=== PATIENT | female | born 1960 | race Caucasian/White ===

== ENCOUNTER 2016-08-16 10:23 | Day surgery (SDC) | payer OTHER ==
[2016-08-15 09:28] VITALS: BMI 32.3
[~2016-08-16 10:23] MED LIST: LACTATED RINGERS 1,000 ML IV SCH
[2016-08-16 12:38] VITALS: RESP 16; TEMP 97.7
[2016-08-16] MEDS ORDERED: IOHEXOL 180 MG/ML 1 ML ML ONE (13:19)
[2016-08-16] MEDS ORDERED: TRIAMCINOLONE ACETONIDE 40 MG/ML 1 ML VIAL ONE (13:19)
--- NOTE | 2016-08-16 13:31 | P.PCN ---
Date of Procedure: 08/16/16 Procedure(s) Performed: PREOPERATIVE DIAGNOSIS: 1- Lumbar Degenerative Disc Diseases 2-Lumbar spondylosis with Facet arthropathy without myelopathy POSTOPERATIVE DIAGNOSIS: 1-Lumber Degenerative Disc Diseases 2-Lumbar spondylosis with Facet arthropathy without myelopathy PROCEDURE 1. Lumbar epidural steroid injection under fluoroscopic guidance at the L5-S1 level. 2. Lumbar epidurogram. ANESTHESIA: Local with 1% lidocaine 3 ml .( NO IV sedations was given ) EBL: Minimal PROCEDURE INDICATION: The patient with low back pain and radiculitis symptoms unresponsive to conservative treatment. Fluoroscopy was used to optimize visualization of the needle placement and to maximize safety. PROCEDURE DESCRIPTION / TECHNIQUE: The patient was seen and identified in the preoperative area. Risks, benefits , complications including but not limited to infections ,bleeding ,allergic reaction to the medications ,nerve damage and not complete pain releife , and alternatives were discussed with the patient. The patient agreed to proceed with the procedure and signed the consent, and vital signs were stable. Patient was taken to the OR and time out was completed. The patient was placed in the prone position on procedure table and a pillow was placed under the abdomen to reduce lumbar lordosis. The lumbosacral area was prepped and draped in the usual sterile fashion.ere closely monitored during the procedure. Vital signs was monitered during the entire procedure. Using anterior-posterior fluoroscopy, the L5-S1 interlaminar space was identified and the skin over this site was marked and then infiltrated with 1% lidocaine subcutaneously. Subsequently, a 20-gauge Tuohy epidural needle was inserted and advanced toward the epidural space using the ``Loss of resistance technique and guided by AP and lateral fluoroscopy. The correct needle position in the epidural space was verified with the injection of 2 mL of the water soluble contrast dye Omnipaque 180 contrast and observing an excellent epidurogram with the epidural spread of the dye, after negative aspiration for blood and CSF and in the absence of paresthesias. Again after negative aspiration, a 6 ml mixture containing 80 mg of Kenalog and 2 ml of preservative free Normal Saline, and 2 ml of preservative free lidocaine 1% solution was injected and a washout of epidurogram was seen. Needle was withdrawn intact, skin was cleansed, and bandages were applied. COMPLICATIONS: None DISPOSITION / PLANS: The patient was placed in a supine position and transferred to the recovery area in a stable condition for observation. There was no evidence of lower extremity motor or sensory deficit after the procedure. Patient was discharged from the recovery room after meeting discharge criteria. Home discharge instructions were given to the patient by the staff. The patient was reexamined prior to discharge. The patient will schedule a follow up in the clinic in 2-4 weeks.
--- NOTE | 2016-08-16 13:39 | FL ---
Fluoroscopy HISTORY: Pain 2 seconds fluoroscopy time supplied to the referring clinician. 1 intraoperative C-arm images docume nt the procedure. See dictated report from anesthesia.
[2016-08-16 13:41] VITALS: BP 124/79; PULSE 57
== END 2016-08-16 13:55 | disposition home or self-care (01) ==
LOC: ORPAIN 10:23
PROVIDERS: ATTEND Specialist
DX: M51.16 Intervertebral disc disorders with radiculopathy, lumbar region (principal); M47.26 Other spondylosis with radiculopathy, lumbar region; M46.96 Unspecified inflammatory spondylopathy, lumbar region; Z88.5 Allergy status to narcotic agent
CPT/HCPCS: 62323; J3301; Q9965

== ENCOUNTER 2016-09-28 17:39 | Emergency (ER) | payer OTHER ==
[2016-09-28 17:52] VITALS: RESP 18
[2016-09-28] MEDS ORDERED: RX INFO: IV CONTRAST WAS GIVEN 1 EACH MISC MISCELLANE PRN (18:07)
[2016-09-28] MEDS ORDERED: SODIUM CHLORIDE 0.9% 1,000 ML IV STA ×2 (18:07)
--- NOTE | 2016-09-28 18:10 | ED ---
General Adult HPI - General Chief complaint: Abdominal Pain Stated complaint: abd pain Time Seen by Provider: 09/28/16 17:58 Source: patient, RN notes reviewed Mode of arrival: ambulatory Limitations: no limitations - History of Present Illness Initial comments: Patient 56-year-old female who presents emergency room today with chief complaint of increased abdominal pain over the last 3 days. Patient does admit that she saw her family doctor who advised come here to the emergency room to rule out diverticulitis. She does admit that she's had loose stools. States she has seen both blood in the toilet paper and in the toilet. Patient denies any history of diverticulitis. She does admit to a pressure like sharp pain located left lower quadrant. States current comfortable at this time. Denies any other complaints or associated symptoms. Patient denies any recent fever, chills, shortness of breath, chest pain, back pain, nausea or vomiting, numbness or tingling, dysuria or hematuria, constipation, headaches or visual changes, or any other complaints. - Related Data Home Medications Medication Instructions Recorded Confirmed Levothyroxine Sodium [Synthroid] 125 mcg PO QAM 12/15/13 09/28/16 Lisinopril [Zestril] 10 mg PO QAM 09/29/14 09/28/16 Atorvastatin [Lipitor] 20 mg PO HS 09/28/15 09/28/16 Ascorbic Acid [Vitamin C] 500 mg PO QAM 03/07/16 09/28/16 Gabapentin [Neurontin] 100 mg PO TID PRN 03/07/16 09/28/16 Previous Rx's Medication Instructions Recorded Famotidine [Pepcid] 20 mg PO BID #20 tablet 09/28/16 Allergies Allergy/AdvReac Type Severity Reaction Status Date / Time codeine AdvReac Nausea & Verified 09/28/16 18:24 Vomiting Review of Systems ROS Statement: Those systems with pertinent positive or pertinent negative responses have been documented in the HPI. ROS Other: All systems not noted in ROS Statement are negative. Past Medical History Past Medical History: Hypertension, Thyroid Disorder Additional Past Medical History / Comment(s): frequent back pain History of Any Multi-Drug Resistant Organisms: None Reported Past Surgical History: Joint Replacement, Orthopedic Surgery, Uterine Ablation Additional Past Surgical History / Comment(s): right knee arthroscopy, partial right knee & then total right knee replacement, left cataract 08/13/16, [facility] & [facility]. Past Anesthesia/Blood Transfusion Reactions: Previous Problems w/ Anesthesia Additional Past Anesthesia/Blood Transfusion Reaction / Comment(s): difficulty waking up Past Psychological History: No Psychological Hx Reported Smoking Status: Never smoker Past Alcohol Use History: None Reported Past Drug Use History: None Reported - Past Family History Father Family Medical History: Cancer Mother Family Medical History: Cancer General Exam - General Exam Comments Initial Comments: General: The patient is awake and alert, in no distress, and does not appear acutely ill. Eye: Pupils are equal, round and reactive to light, extra-ocular movements are intact. No nystagmus. There is normal conjunctiva bilaterally. No signs of icterus. Ears, nose, mouth and throat: There are moist mucous membranes and no oral lesions. Neck: The neck is supple, there is no tenderness or JVD. Cardiovascular: There is a regular rate and rhythm. No murmur, rub or gallop is appreciated. Respiratory: Lungs are clear to auscultation, respirations are non-labored, breath sounds are equal. No wheezes, stridor, rales, or rhonchi. Gastrointestinal: Exam. Normal bowel sounds. Abdomen soft on palpation. Patient does have tenderness left lower quadrant. No rebound tenderness. No guarding. No CVA tenderness. Musculoskeletal: Normal ROM, no tenderness. Strength 5/5. Sensation intact. Pulses equal bilaterally 2+. Neurological: A&O x 3. CN II-XII intact, There are no obvious motor or sensory deficits. Coordination appears grossly intact. Speech is normal. Skin: Skin is warm and dry and no rashes or lesions are noted. Psychiatric: Cooperative, appropriate mood & affect, normal judgment. Limitations: no limitations Course Vital Signs 09/28/16 09/28/16 17:47 19:17 Temperature 98.7 F 97.8 F Pulse Rate 74 69 Respiratory 18 18 Rate Blood Pressure 171/84 158/72 O2 Sat by Pulse 98 97 Oximetry Medical Decision Making - Medical Decision Making Reexamined at this time shows no signs of distress. Patient's nursing comfortably. Patient labs been reviewed and are unremarkable. No elevated white count. No fever. Patient doesn't see some blood in the stool over the last few days. Does admit that the diarrhea has improved. Case was discussed in detail with attending physician Dr. Suggs. Patient will be discharged home on Pepcid advised follow-up family doctor over the next 2 days. Advised return if any symptoms increase or worsen or for any other concerns. - Lab Data Result diagrams: 09/28/16 18:30 09/28/16 18:30 Lab Results 09/28/16 09/28/16 09/28/16 Range/Units 18:30 18:30 18:30 WBC 6.1 (3.8-10.6) k/uL RBC 4.27 (3.80-5.40) m/uL Hgb 13.1 (11.4-16.0) gm/dL Hct 41.1 (34.0-46.0) % MCV 96.4 (80.0-100.0) fL MCH 30.8 (25.0-35.0) pg MCHC 32.0 (31.0-37.0) g/dL RDW 14.3 (11.5-15.5) % Plt Count 194 (150-450) k/uL Neutrophils % 75 % Lymphocytes % 16 % Monocytes % 5 % Eosinophils % 2 % Basophils % 1 % Neutrophils # 4.6 (1.3-7.7) k/uL Lymphocytes # 1.0 (1.0-4.8) k/uL Monocytes # 0.3 (0-1.0) k/uL Eosinophils # 0.1 (0-0.7) k/uL Basophils # 0.1 (0-0.2) k/uL PT 10.1 (9.0-12.0) sec INR 1.0 (<1.1) APTT 24.0 (22.0-30.0) sec Sodium 142 (137-145) mmol/L Potassium 3.8 (3.5-5.1) mmol/L Chloride 107 (98-107) mmol/L Carbon Dioxide 27 (22-30) mmol/L Anion Gap 8 mmol/L BUN 16 (7-17) mg/dL Creatinine 0.80 (0.52-1.04) mg/dL Est GFR (MDRD) Af Amer >60 (>60 ml/min/1.73 sqM) Est GFR (MDRD) Non-Af >60 (>60 ml/min/1.73 sqM) Glucose 92 (74-99) mg/dL Calcium 9.4 (8.4-10.2) mg/dL Total Bilirubin 0.4 (0.2-1.3) mg/dL AST 25 (14-36) U/L ALT 34 (9-52) U/L Alkaline Phosphatase 69 (38-126) U/L Total Protein 6.8 (6.3-8.2) g/dL Albumin 3.9 (3.5-5.0) g/dL Amylase 59 (30-110) U/L Lipase 98 (23-300) U/L Urine Color Urine Appearance (Clear) Urine pH (5.0-8.0) Ur Specific Nelson (1.001-1.035) Urine Protein (Negative) Urine Glucose (UA) (Negative) Urine Ketones (Negative) Urine Blood (Negative) Urine Nitrite (Negative) Urine Bilirubin (Negative) Urine Urobilinogen (<2.0) mg/dL Ur Leukocyte Esterase (Negative) Urine RBC (0-5) /hpf Urine WBC (0-5) /hpf Ur Squamous Epith Cells (0-4) /hpf Urine Bacteria (None) /hpf Hyaline Casts (0-2) /lpf Urine Mucus (None) /hpf /10/10 Range/Units 19:12 WBC (3.8-10.6) k/uL RBC (3.80-5.40) m/uL Hgb (11.4-16.0) gm/dL Hct (34.0-46.0) % MCV (80.0-100.0) fL MCH (25.0-35.0) pg MCHC (31.0-37.0) g/dL RDW (11.5-15.5) % Plt Count (150-450) k/uL Neutrophils % % Lymphocytes % % Monocytes % % Eosinophils % % Basophils % % Neutrophils # (1.3-7.7) k/uL Lymphocytes # (1.0-4.8) k/uL Monocytes # (0-1.0) k/uL Eosinophils # (0-0.7) k/uL Basophils # (0-0.2) k/uL PT (9.0-12.0) sec INR (<1.1) APTT (22.0-30.0) sec Sodium (137-145) mmol/L Potassium (3.5-5.1) mmol/L Chloride (98-107) mmol/L Carbon Dioxide (22-30) mmol/L Anion Gap mmol/L BUN (7-17) mg/dL Creatinine (0.52-1.04) mg/dL Est GFR (MDRD) Af Amer (>60 ml/min/1.73 sqM) Est GFR (MDRD) Non-Af (>60 ml/min/1.73 sqM) Glucose (74-99) mg/dL Calcium (8.4-10.2) mg/dL Total Bilirubin (0.2-1.3) mg/dL AST (14-36) U/L ALT (9-52) U/L Alkaline Phosphatase (38-126) U/L Total Protein (6.3-8.2) g/dL Albumin (3.5-5.0) g/dL Amylase (30-110) U/L Lipase (23-300) U/L Urine Color Yellow Urine Appearance Clear (Clear) Urine pH 5.5 (5.0-8.0) Ur Specific Nelson 1.028 (1.001-1.035) Urine Protein Negative (Negative) Urine Glucose (UA) Negative (Negative) Urine Ketones Negative (Negative) Urine Blood Negative (Negative) Urine Nitrite Negative (Negative) Urine Bilirubin Negative (Negative) Urine Urobilinogen <2.0 (<2.0) mg/dL Ur Leukocyte Esterase Trace H (Negative) Urine RBC 1 (0-5) /hpf Urine WBC 1 (0-5) /hpf Ur Squamous Epith Cells 2 (0-4) /hpf Urine Bacteria Occasional H (None) /hpf Hyaline Casts 1 (0-2) /lpf Urine Mucus Occasional H (None) /hpf Disposition Clinical Impression: Abdominal pain Disposition: HOME SELF-CARE Condition: Good Instructions: Abdominal Pain (ED) Additional Instructions: Please use medication as discussed. Please follow-up with family doctor in the next 2 days. Please return to emergency room if the symptoms increase or worsen or for any other concerns. Prescriptions: Famotidine [Pepcid] 20 mg PO BID #20 tablet Time of Disposition: 19:53
[2016-09-28 18:37] LABS: Basophils # (A) 0.1 k/uL (0-0.2); Basophils % (A) 1 %; CH 31.6; CHCM 32.9; Eosinophils # (A) 0.1 k/uL (0-0.7); Eosinophils % (A) 2 %; HCT 41.1 % (34.0-46.0); HDW 2.55; HGB 13.1 gm/dL (11.4-16.0); Luc % (Auto) 2; Lymphocytes % (A) 16 %; MCH 30.8 pg (25.0-35.0); MCV 96.4 fL (80.0-100.0); Mean Platelet Volume 6.8; Monocytes # (A) 0.3 k/uL (0-1.0); Monocytes % (A) 5 %; Neutrophils # (A) 4.6 k/uL (1.3-7.7); Neutrophils % (A) 75 %; RBC 4.27 m/uL (3.80-5.40); RDW 14.3 % (11.5-15.5); WBC 6.1 k/uL (3.8-10.6); WBC (Perox) 6.38
[2016-09-28 18:46] LABS: Prothrombin Time 10.1 sec (9.0-12.0)
[2016-09-28 19:01] LABS: ALT 34 U/L (9-52); AST 25 U/L (14-36); Alkaline Phosphatase 69 U/L (38-126); Amylase 59 U/L (30-110); Anion Gap 8 mmol/L; Blood Urea Nitrogen 16 mg/dL (7-17); Calcium 9.4 mg/dL (8.4-10.2); Carbon Dioxide 27 mmol/L (22-30); Chloride 107 mmol/L (98-107); Glucose 92 mg/dL (74-99); Non-African American GFR(MDRD) >60 (>60 ml/min/1.73 sqM); Potassium 3.8 mmol/L (3.5-5.1); Sodium 142 mmol/L (137-145); Total Bilirubin 0.4 mg/dL (0.2-1.3); Total Protein 6.8 g/dL (6.3-8.2)
[2016-09-28 19:18] VITALS: BP 158/72; PULSE 69; TEMP 97.8
[2016-09-28 19:28] LABS: Appearance,Urine Clear (Clear); Bacteria,Urine Occasional /hpf; Bilirubin,Urine Negative (Negative); Glucose,Urine (UA) Negative (Negative); Ketones,Urine Negative (Negative); Leukocyte Esterase,Urine Trace (Negative); Mucus,Urine Occasional /hpf; Nitrite,Urine Negative (Negative); PH, Urine 5.5 (5.0-8.0); Particle Count 4438; Protein,Urine Negative (Negative); RBC,Urine 1 /hpf (0-5); Specific Gravity,Urine 1.028 (1.001-1.035); Squamous Epithelial Cell,Urine 2 /hpf (0-4); UA Billing (MACRO vs. MICRO) MICRO; Urobilinogen,Urine <2.0 mg/dL (<2.0); WBC,Urine 1 /hpf (0-5)
--- NOTE | 2016-09-28 19:37 | CT ---
EXAMINATION TYPE: CT abdomen pelvis w con DATE OF EXAM: 09/28/2016 7:23 PM COMPARISON: NONE HISTORY: Patient complains of LLQ pain. CT DLP: 2064.5 mGycm Automated exposure control for dose reduction was used. TECHNIQUE: Helical acquisition of images from the lung bases through the pelvis have been completed. CONTRAST: Performed without Oral Contrast and with IV Contrast, patient injected with 100 mL of Omnipaque 300. FINDINGS: LUNG BASES: Some minimal pneumonitis, dependent atelectatic change suspected at the posterior lung ba ses, the heart is borderline enlarged AORTA: No significant abnormality is appreciated. LIVER/GB: No significant abnormality is appreciated. PANCREAS: No significant abnormality is seen. SPLEEN: No significant abnormality is seen. ADRENALS: No significant abnormality is seen. KIDNEYS: No significant abnormality is seen. REPRODUCTIVE ORGANS: There may be some associated cystic foci within the ovaries BOWEL: No significant abnormality is seen. FREE AIR: No Free Air visible. ASCITES: None visible. PELVIC ADENOPATHY: None visualized. RETROPERITONEAL ADENOPATHY: No Retroperitoneal Adenopathy visible. URINARY BLADDER: No significant abnormality is seen. OSSEOUS STRUCTURES: No significant abnormality is seen. IMPRESSION: NO SIGNIFICANT ABNORMALITIES EVIDENT WITHIN THE ABDOMEN PELVIS. FINDINGS AT THE LUNG BASES DESCRIB ED
== END 2016-09-28 20:09 | disposition home or self-care (01) ==
LOC: EC 17:39
DX: R10.32 Left lower quadrant pain (principal); I10 Essential (primary) hypertension; E07.9 Disorder of thyroid, unspecified; Z79.899 Other long term (current) drug therapy; Z88.5 Allergy status to narcotic agent
CPT/HCPCS: 99284; 96360; 96361; 36415; 80053; 82150; 83690; 85025; 85610; 85730; 81001; 74177; Q9967

== ENCOUNTER 2016-11-07 07:25 | Day surgery (SDC) | payer OTHER ==
[2016-11-05 14:05] VITALS: BMI 32.3
[2016-11-07 07:58] VITALS: TEMP 96.8
[2016-11-07] MEDS ORDERED: IOHEXOL 180 MG/ML 1 ML ML ONE (08:17)
[2016-11-07] MEDS ORDERED: DEXAMETHASONE SOD PHOS (MDV) 100 MG/10 ML VIAL ONE (08:17)
--- NOTE | 2016-11-07 08:35 | P.PCN ---
Date of Procedure: 11/07/16 Preoperative Diagnosis: Postoperative Diagnosis: Procedure(s) Performed: PREOPERATIVE DIAGNOSIS: 1- Lumbar Degenerative Disc Diseases 2-Lumbar spondylosis with Facet arthropathy without myelopathy POSTOPERATIVE DIAGNOSIS: 1-Lumber Degenerative Disc Diseases 2-Lumbar spondylosis with Facet arthropathy without myelopathy PROCEDURE 1. Lumbar epidural steroid injection under fluoroscopic guidance at the L5-S1 level. 2. Lumbar epidurogram. ANESTHESIA: Local with 1% lidocaine 3 ml ( NO IV sedation was given ) EBL: Minimal PROCEDURE INDICATION: The patient with low back pain and radiculitis symptoms unresponsive to conservative treatment. Fluoroscopy was used to optimize visualization of the needle placement and to maximize safety. PROCEDURE DESCRIPTION / TECHNIQUE: The patient was seen and identified in the preoperative area. Risks, benefits , complications including but not limited to infections ,bleeding ,allergic reaction to the medications ,nerve damage and not complete pain releife , and alternatives were discussed with the patient. The patient agreed to proceed with the procedure and signed the consent, and vital signs were stable. Patient was taken to the OR and time out was completed. The patient was placed in the prone position on procedure table and a pillow was placed under the abdomen to reduce lumbar lordosis. The lumbosacral area was prepped and draped . Vital signs was monitered during the entire procedure. Using anterior-posterior fluoroscopy, the L5-S1 interlaminar space was identified and the skin over this site was marked and then infiltrated with 1% lidocaine subcutaneously. Subsequently, a 20-gauge Tuohy epidural needle was inserted and advanced toward the epidural space using the ``Loss of resistance technique and guided by AP and lateral fluoroscopy. The correct needle position in the epidural space was verified with the injection of 2 mL of the water soluble contrast dye Omnipaque 180 contrast and observing an excellent epidurogram with the epidural spread of the dye, after negative aspiration for blood and CSF and in the absence of paresthesias. Again after negative aspiration, a 6 ml mixture containing 20 mg of Dexamethasone and 2 ml of preservative free Normal Saline, and 2 ml of preservative free lidocaine 1% solution was injected and a washout of epidurogram was seen. Needle was withdrawn intact, skin was cleansed, and bandages were applied. COMPLICATIONS: None DISPOSITION / PLANS: The patient was placed in a supine position and transferred to the recovery area in a stable condition for observation. There was no evidence of lower extremity motor or sensory deficit after the procedure. Patient was discharged from the recovery room after meeting discharge criteria. Home discharge instructions were given to the patient by the staff. The patient was reexamined prior to discharge. The patient will schedule a follow up in the clinic in 2-4 weeks. Implants: Indications for Procedure: Operative Findings: Description of Procedure:
[2016-11-07] MEDS ORDERED: IV FLUID CONTINUATION 1,000 ML IV ONE (08:37)
[2016-11-07 08:41] VITALS: RESP 18
[2016-11-07 08:56] VITALS: BP 125/85; PULSE 67
--- NOTE | 2016-11-07 09:07 | FL ---
EXAMINATION TYPE: FL guided pain mgmt statistic DATE OF EXAM: 11/07/2016 CLINICAL HISTORY: Low back pain. TECHNIQUE: Fluoroscopy. COMPARISON: None. FINDINGS: Fluoroscopic guidance was provided during pain relief procedure performed by Dr. Jerry . A total of 2 seconds of fluoroscopic time was utilized during the procedure and one spot images ac quired. Single image acquired shows needle localization at L5 level. IMPRESSION: As Above.
== END 2016-11-07 09:06 | disposition home or self-care (01) ==
LOC: ORPAIN 07:25
PROVIDERS: ATTEND Specialist
DX: M51.16 Intervertebral disc disorders with radiculopathy, lumbar region (principal); M47.26 Other spondylosis with radiculopathy, lumbar region; M46.96 Unspecified inflammatory spondylopathy, lumbar region; I10 Essential (primary) hypertension; E03.9 Hypothyroidism, unspecified; Z88.5 Allergy status to narcotic agent
CPT/HCPCS: 62323; 81025; Q9965; J1100

== ENCOUNTER 2017-01-24 09:54 | Day surgery (SDC) | payer OTHER ==
[2017-01-17 10:32] VITALS: BMI 32.3
[~2017-01-24 09:54] MED LIST changes: +LACTATED RINGERS 1,000 ML IV ONE; -LACTATED RINGERS 1,000 ML IV SCH
[2017-01-24 10:44] VITALS: RESP 16; TEMP 97.6
--- NOTE | 2017-01-24 11:54 | P.PCN ---
Date of Procedure: 01/24/17 Preoperative Diagnosis: Postoperative Diagnosis: Procedure(s) Performed: PREOPERATIVE DIAGNOSIS: 1- Lumbar Degenerative Disc Diseases 2-Lumbar spondylosis with Facet arthropathy without myelopathy POSTOPERATIVE DIAGNOSIS: 1-Lumber Degenerative Disc Diseases 2-Lumbar spondylosis with Facet arthropathy without myelopathy PROCEDURE 1. Lumbar epidural steroid injection under fluoroscopic guidance at the L5-S1 level. 2. Lumbar epidurogram. ANESTHESIA: Local with 1% lidocaine 3 ml only . EBL: Minimal PROCEDURE INDICATION: The patient with low back pain and radiculitis symptoms unresponsive to conservative treatment. Fluoroscopy was used to optimize visualization of the needle placement and to maximize safety. PROCEDURE DESCRIPTION / TECHNIQUE: The patient was seen and identified in the preoperative area. Risks, benefits , complications including but not limited to infections ,bleeding ,allergic reaction to the medications ,nerve damage and not complete pain releife , and alternatives were discussed with the patient. The patient agreed to proceed with the procedure, and signed ,, and vital signs were stable. Patient was taken to the OR and time out was completed. The patient was placed in the prone position on procedure table and a pillow was placed under the abdomen to reduce lumbar lordosis. The lumbosacral area was prepped and draped in the usual sterile fashion.ere closely monitored during the procedure. . Vital signs was monitered during the entire procedure. Using anterior-posterior fluoroscopy, the L5-S1 interlaminar space was identified and the skin over this site was marked and then infiltrated with 1% lidocaine subcutaneously. Subsequently, a 20-gauge Tuohy epidural needle was inserted and advanced toward the epidural space using the ``Loss of resistance technique and guided by AP and lateral fluoroscopy. The correct needle position in the epidural space was verified with the injection of 2 mL of the water soluble contrast dye Omnipaque 180 contrast and observing an excellent epidurogram with the epidural spread of the dye, after negative aspiration for blood and CSF and in the absence of paresthesias. Again after negative aspiration, a 6 ml mixture containing 20 mg of Dexamethasone and 2 ml of preservative free Normal Saline, and 2 ml of preservative free lidocaine 1% solution was injected and a washout of epidurogram was seen. Needle was withdrawn intact, skin was cleansed, and bandages were applied. COMPLICATIONS: None DISPOSITION / PLANS: The patient was placed in a supine position and transferred to the recovery area in a stable condition for observation. There was no evidence of lower extremity motor or sensory deficit after the procedure. Patient was discharged from the recovery room after meeting discharge criteria. Home discharge instructions were given to the patient by the staff. The patient was reexamined prior to discharge. The patient will schedule a follow up in the clinic in 2-4 weeks. Implants: Indications for Procedure: Operative Findings: Description of Procedure:
--- NOTE | 2017-01-24 12:06 | FL ---
EXAMINATION TYPE: FL guided pain mgmt statistic DATE OF EXAM: 01/24/2017 COMPARISON: NONE HISTORY: Low back pain TECHNIQUE: Fluoroscopy. FINDINGS/IMPRESSION: Fluoroscopic guidance was provided during epidural steroid injection. A total of 2 seconds of fluoroscopic time was utilized during the procedure.
[2017-01-24 12:12] VITALS: BP 137/77; PULSE 50
== END 2017-01-24 12:30 | disposition home or self-care (01) ==
LOC: ORPAIN 09:54
PROVIDERS: ATTEND Specialist
DX: M51.16 Intervertebral disc disorders with radiculopathy, lumbar region (principal); M47.26 Other spondylosis with radiculopathy, lumbar region; M46.96 Unspecified inflammatory spondylopathy, lumbar region; I10 Essential (primary) hypertension; E03.9 Hypothyroidism, unspecified; Z88.5 Allergy status to narcotic agent
CPT/HCPCS: 62323; 81025; J1100; Q9965

== ENCOUNTER → 2017-02-28 | Outpatient (CLI) | payer OTHER ==
[2017-02-28 12:03] VITALS: BP 131/63; PULSE 53; RESP 16; TEMP 98.2
--- NOTE | 2017-02-28 12:59 | P.CONS ---
History of Present Illness - Reason for Consult Consult date: 02/28/17 - History of Present Illness Follow-up visit for this 56 years old female with a chronic history of severe low back pain she was diagnosed with lumbar degenerative disc disease, lumbar spondylosis, we have done lumbar epidural steroid injections 3 , patient continued to have severe low back pain which is localized in the lumbar area left side more than the right side she denies any motor or sensory deficit she denies any numbness or tingling sensation, the pain is not radiated to the lower extremity, the pain is constant and increases with any activity she denies any fever or night sweats, no change in bowel movement or urination Past Medical History Past Medical History: GERD/Reflux, Hyperlipidemia, Hypertension, Osteoarthritis (OA), Skin Disorder, Thyroid Disorder Additional Past Medical History / Comment(s): Chronic Back Pain. Colitis. Rosacea. History of Any Multi-Drug Resistant Organisms: None Reported Past Surgical History: Joint Replacement, Orthopedic Surgery, Uterine Ablation Additional Past Surgical History / Comment(s): Right Knee Arthroscopy, Partial Right Knee, then Total Right Knee Replacement. [place] Cataracts. MULT PAIN PROC Past Anesthesia/Blood Transfusion Reactions: Previous Problems w/ Anesthesia, Motion Sickness Additional Past Anesthesia/Blood Transfusion Reaction / Comm: Difficulty waking up Past Psychological History: No Psychological Hx Reported Smoking Status: Never smoker Past Alcohol Use History: None Reported Past Drug Use History: None Reported - Past Family History Father Family Medical History: Cancer Mother Family Medical History: Cancer Medications and Allergies Home Medications Medication Instructions Recorded Confirmed Type Levothyroxine Sodium [Synthroid] 125 mcg PO QAM 12/15/13 02/28/17 History Lisinopril [Zestril] 10 mg PO QAM 09/29/14 02/28/17 History Atorvastatin [Lipitor] 20 mg PO HS 09/28/15 02/28/17 History Ascorbic Acid [Vitamin C] 500 mg PO QAM 03/07/16 02/28/17 History Gabapentin [Neurontin] 100 mg PO TID PRN 03/07/16 02/28/17 History Allergies Allergy/AdvReac Type Severity Reaction Status Date / Time codeine AdvReac Nausea & Verified 02/28/17 11:50 Vomiting Physical Exam Vitals: Vital Signs Temp Pulse Resp BP 02/28/17 11:53 98.2 F 53 L 16 131/63 Intake and Output 02/27/17 02/28/17 02/28/17 22:59 06:59 14:59 Other: Weight 95.254 kg Patient Weight 03/01/17 06:59 Weight 95.254 kg Physical Examinations : 1-Constitutiona : Cooperative , not in acute distress . 2-HEENT : nech ; supple , no Lymphadenopathy , normal thyroid size . eyes : no ptosis , no icterus, no photophobia . ENT : normal of hearing , normal oropharynx , no Thrush . 3- Respiratory : Chest clear to auscultations Bilaterally , no wheezing , no Rhonchi . 4- Cardiovascular : regular rate and rhythem , S1 , S2 , no S3 , no S4. 5- Gastrointestinal : abdomen soft no tenderness , bowel sounds positive all four quadrents , no organomegally . 6- Genitourinary : Defferred . 7- neurologic : Cranial nerve II to XII intact , no focal neurological deffecit . 8-psychatric : alert , oriented X 3 , appropriate affect , intact judgment and insight . 9-Lymphatic : no Lymphadenopathy . 10- musculoskeltal : , Lumber spine = normal moter stegnth lower extremities ,thigh and legs .5/5 bilaterally deep tendon reflexes : normal Knee Jerk , normal ankle Jerk . lumber facet Loading Test positive bilaterally L > R strait leg raising test negative bilaterally Fabere test negative bilaterally Assessment and Plan Plan: Assessment and plan= chronic low back pain secondary to lumbar degenerative disc disease , lumbar spondylosis with lumbar facet arthropathy , patient continued to have severe low back pain after the lumbar epidural steroid injections 3 ,done within the last few months Interventional pain management= patient will be scheduled to have diagnostic medial branch block lumbar area L3/L4 5/L5-S1 x2 and if she had more than 50% decrease in the pain level when she would be a good candidate to have radiofrequency ablation of the medial branch lumbar area , Time with Patient: Less than 30
== END | disposition home or self-care (01) ==
LOC: PNWHC3 11:41
PROVIDERS: ATTEND Specialist
DX: M51.36 Other intervertebral disc degeneration, lumbar region (principal); M47.816 Spondylosis without myelopathy or radiculopathy, lumbar region; M46.96 Unspecified inflammatory spondylopathy, lumbar region; Z88.5 Allergy status to narcotic agent; Z79.899 Other long term (current) drug therapy; K21.9 Gastro-esophageal reflux disease without esophagitis; E78.5 Hyperlipidemia, unspecified; I10 Essential (primary) hypertension; M19.90 Unspecified osteoarthritis, unspecified site; E07.9 Disorder of thyroid, unspecified
CPT/HCPCS: 99211

== ENCOUNTER → 2017-04-04 | Day surgery (SDC) | payer OTHER ==
[2017-04-02 14:30] VITALS: BMI 32.3
[~2017-04-04] MED LIST changes: +IV FLUID CONTINUATION 975 ML IV ONE; +LIDOCAINE 1% 20 ML VIAL (10MG/ML) FOR IV START INTRADERMA ONE
[2017-04-04 09:54] VITALS: RESP 16; TEMP 97.7
--- NOTE | 2017-04-04 10:53 | P.PCN ---
Date of Procedure: 04/04/17 Preoperative Diagnosis: lumbar spondylosis without myelopathy Postoperative Diagnosis: same as above Procedure(s) Performed: lumbar bilateral medial branch block under fluoroscopic guidance for levels L2- L3, L3-L4, L4-L5, and L5-S1 Anesthesia: MAC (moderate conscious sedation with IV fentanyl and Versed) Surgeon: Sandra Jimenez Pathology: none sent Condition: stable Disposition: PACU Description of Procedure: the patient was seen and identified in the preop holding area , risks and benefits and possible complications of the procedure and alternatives were discussed with the patient, and the patient agreed to proceed with the procedure and signed the consent. IV was started and vital signs monitored during the procedure and fluoroscopy was used to maximize the benefit and accuracy of the needle placement, sedation was given to decrease patient anxiety, patient was taken to the procedure room and placed in prone position vital signs monitored. The patient was seen in the preop holding area consent was obtained then she was brought into the procedure room and placed in prone position. Skin was prepped with Chloraprep and draped in a sterile manner. Lidocaine 1% was used to numb the skin up at the target points that were chosen as follows: at the L5-S1 level which corresponds to the dorsal ramus of L5 the target points were at the superior medial aspect of the sacral ala on each side of the spine on the AP view of fluoroscopy, and for theL2, L3 and L4 medial branches the target points were the connection between the transverse process and the superior to go process of L3, L4 and L5 respectively on the oblique views of fluoroscopy. I used 22-gauge 3-1/2 inch Quincke spinal needles for this procedure and after contacting bone at the target points mentioned above I injected 1 mL of Marcaine 0.5%. Patient tolerated procedure well. At the end of the procedure the needles removed and a bandage applied after the skin was cleaned the cleaning solution. patient was then taken to the recovery room in stable condition and monitored in the recovery room for 20-30 minutes and discharged home in stable condition after discharge criteria met . patient will follow up with the pain clinic after she recovers from her total knee replacement that is scheduled to be done by the end of March 2017.
--- NOTE | 2017-04-04 11:30 | FL ---
Fluoroscopy HISTORY: Pain 9 seconds fluoroscopy time supplied to the referring clinician. 2 intraoperative C-arm images docume nt the procedure. See dictated report from anesthesia.
[2017-04-04 11:52] VITALS: BP 122/65; PULSE 66
== END ==
LOC: ORPAIN 09:33
PROVIDERS: ATTEND Anesthesiology
DX: M47.816 Spondylosis without myelopathy or radiculopathy, lumbar region (principal); I10 Essential (primary) hypertension; Z88.5 Allergy status to narcotic agent
CPT/HCPCS: 81025; 64493; 64494; 64495; J2250; J3010; 99152

== ENCOUNTER → 2017-04-05 | Outpatient (CLI) | payer OTHER ==
--- NOTE | 2017-04-06 08:03 | ECHOF ---
Referral Reason:151.7 CARDIOMEGALY MEASUREMENTS -------- HEIGHT: 167.6 cm WEIGHT: 90.7 kg BP: 130/77 RVIDd: 2.1 cm (< 3.3) IVSd: 1.0 cm (0.6 - 1.1) LVIDd: 4.8 cm (3.9 - 5.3) LVPWd: 1.1 cm (0.6 - 1.1) IVSs: 1.4 cm LVIDs: 2.8 cm LVPWs: 1.7 cm LAESV Index (A-L): 30.55 ml/m Ao Diam: 3.5 cm (2.0 - 3.7) AV Cusp: 1.6 cm (1.5 - 2.6) LA Diam: 3.1 cm (2.7 - 3.8) MV EXCURSION: 18.221 mm (> 18.000) MV EF SLOPE: 119 mm/s (70 - 150) EPSS: 0.3 cm MV E Gama: 0.77 m/s MV DecT: 210 ms MV A Gama: 0.56 m/s MV E/A Ratio: 1.38 RAP: 5.00 mmHg RVSP: 27.47 mmHg FINDINGS -------- Resting bradycardia (HR<60bpm). This was a technically adequate study. The left ventricular size is normal. There is borderline concentric left ventricular hypertrophy. Overall left ventricular systolic function is normal with, an EF between 60 - 65 %. The right ventricle is normal in size and function. LA is midly dilated 29-33ml/m2. The right atrium is normal in size. Aortic valve is trileaflet and is mildly thickened. There is no evidence of aortic regurgitation. There is no evidence of aortic stenosis. The mitral valve leaflets are mildly thickened. There is trace mitral regurgitation. Trace tricuspid regurgitation present. Right ventricular systolic pressure is normal at < 35 mmHg. There is no evidence of pulmonary hypertension. The pulmonic valve is normal. The aortic root size is normal. Normal inferior vena cava with normal inspiratory collapse consistent with estimated right atrial pre ssure of 5 mmHg. The pericardium is normal. There is no pericardial effusion. CONCLUSIONS -------- 1. Resting bradycardia (HR<60bpm). 2. This was a technically adequate study. 3. The left ventricular size is normal. 4. There is borderline concentric left ventricular hypertrophy. 5. Overall left ventricular systolic function is normal with, an EF between 60 - 65 %. 6. LA is midly dilated 29-33ml/m2. 7. Aortic valve is trileaflet and is mildly thickened. 8. The mitral valve leaflets are mildly thickened. 9. There is trace mitral regurgitation. 10. Trace tricuspid regurgitation present. 11. Right ventricular systolic pressure is normal at < 35 mmHg. 12. There is no evidence of pulmonary hypertension. 13. The aortic root size is normal. 14. There is no pericardial effusion. CHIEF SECURITY AND SAFETY OFFICER: Emmanuel Gordon RDCS
== END | disposition home or self-care (01) ==
LOC: RADECHMAIN 16:06
PROVIDERS: ATTEND Family Medicine
DX: I08.3 Combined rheumatic disorders of mitral, aortic and tricuspid valves (principal)
CPT/HCPCS: 93306

== ENCOUNTER 2017-06-10 07:11 | Day surgery (SDC) | payer OTHER ==
[2017-06-04 14:55] VITALS: BMI 32.3
[~2017-06-10 07:11] MED LIST changes: -IV FLUID CONTINUATION 975 ML IV ONE; -LACTATED RINGERS 1,000 ML IV ONE; +LACTATED RINGERS 1,000 ML IV SCH; -LIDOCAINE 1% 20 ML VIAL (10MG/ML) FOR IV START INTRADERMA ONE
[2017-06-10 07:24] VITALS: RESP 18; TEMP 98.1
[2017-06-10] MEDS ORDERED: LACTATED RINGERS 1,000 ML IV ONE (07:24)
[2017-06-10] MEDS ORDERED: LIDOCAINE 1% 20 ML VIAL (10MG/ML) FOR IV START INTRADERMA ONE (07:34)
--- NOTE | 2017-06-10 08:36 | P.PCN ---
Date of Procedure: 06/10/17 Procedure(s) Performed: PREOPERATIVE DIAGNOSIS : 1- Lumbar spondylosis with Facet Arthropathy without myelopathy . 2- Lumber degenerative disc disease POSTOPERATIVE DIAGNOSIS: 1- Lumbar spondylosis with Facet Arthropathy without myelopathy . 2- Lumber degenerative disc disease PROCEDURE: Diagnostic bilateral L2-3 , L3 -4 , L4 -5 , and L5-S1 medial branch block under fluoroscopy ANESTHESIA: Local with 1% lidocaine 6 ml , moderate sedation with intravenous Versed 3 mg and Fentanyl 100 mcg. EBL: Minimal COMPLICATION: None. IV FLUIDS: 100 mL of normal saline. PROCEDURE INDICATION: Chronic low back pain secondary to Facet arthropathy unresponsive to conservative treatment. PROCEDURE DESCRIPTION: the patient was seen and identified in the preop holding area , risks and benefits and possible complications of the procedure and alternative were discussed with the patient, and the patient agreed to proceed with the procedure and signed the consent IV was started and vital signs monitored during the procedure and fluoroscopy was used to maximize the benefit and accuracy of the needle placement, and sedation was given to decrease patient anxiety, patient was taken to the procedure room and placed in prone position vital signs monitored in the back prepped with chlorhexidine X3 then under strict sterile technique using a right oblique fluoroscopy ,the junction of the transverse process and the superior articulating process of the right L2-3 , L3- 4 , L4- 5, and L5-S1 vertebra which corresponding to the fluoroscopy image of the eye of the Sen dog on the block side for the medial branches and subsequently , after local infiltration of skin and subcu tissuies with lidocaine 1% one mL at each level ,then 22-gauge Quincke-type needles , 4 needle was used , each one of them placed at the junction of the base of the transverse process and the superior articular process at the appropriate level, and the needle was advanced until the periosteum contacted, needle placement confirmed with AP oblique and lateral view and after appropriate needle placement confirmed, and after negative aspiration for heme and CSF and there was no paresthesia 2 mL of Marcaine 0.5% mixed with 20 mg Kenalog , then half mL injected at each level after negative aspiration the needle subsequently removed and the same procedure repeated for the left side at left side at L2-3 , L3-4, L4- 5 and L5- S1 levels. At the end of the procedure and the needles removed and a bandage applied after the skin was cleaned the cleaning solution patient taken to recovery room in stable condition and monitors in the recovery room for 20-30 minutes and discharged home in stable condition after discharge criteria met and patient will follow up with the pain clinic in 2-4 weeks
[2017-06-10] MEDS ORDERED: IV FLUID CONTINUATION 1,000 ML IV ONE (08:41)
[2017-06-10 08:57] VITALS: BP 131/73; PULSE 60
--- NOTE | 2017-06-10 10:59 | FL ---
EXAMINATION TYPE: FL guided pain mgmt statistic DATE OF EXAM: 06/10/2017 FLUOROSCOPY Fluoroscopy time of 12 seconds was used during bilateral lumbar medial branch blocks. 4 image/s docu ment/s the procedure.
== END 2017-06-10 09:26 | disposition home or self-care (01) ==
LOC: ORPAIN 07:11
PROVIDERS: ATTEND Specialist
DX: G89.29 Other chronic pain (principal); M47.816 Spondylosis without myelopathy or radiculopathy, lumbar region; M51.36 Other intervertebral disc degeneration, lumbar region; I10 Essential (primary) hypertension; K21.9 Gastro-esophageal reflux disease without esophagitis; E03.9 Hypothyroidism, unspecified
CPT/HCPCS: 81025; 64493; 64494; 64495; J2250; J3301; J3010; 99152

== ENCOUNTER 2017-07-10 06:19 | Day surgery (SDC) | payer OTHER ==
[2017-07-05 12:41] VITALS: BMI 32.3
[2017-07-10] MEDS ORDERED: LACTATED RINGERS 1,000 ML IV SCH (07:00)
[2017-07-10 07:22] VITALS: TEMP 97.7
[2017-07-10] MEDS ORDERED: LIDOCAINE 1% 20 ML VIAL (10MG/ML) FOR IV START INTRADERMA ONE (07:29)
--- NOTE | 2017-07-10 08:36 | P.PCN ---
Date of Procedure: 07/10/17 Procedure(s) Performed: PREOPERATIVE DIAGNOSIS: 1-Lumbar Spondylosis with Facet Arthropathy without myelopathy. 2- Lumber degenerative disc disease POSTOPERATIVE DIAGNOSIS: 1- Lumbar Spondylosis with Facet Arthropathy without myelopathy. 2- Lumber degenerative disc disease PROCEDURES : Left Bilateral Radiofrequency thermocoagulation, L2-3 , L3-L4, L4- L5, and L5-S1 medial branch, with fluoroscopic guidance ANESTHESIA: Moderate sedation with intravenous versed 2 mg and fentaneyl 100 mcg and local infiltration with lidocaine 1% 4 ml EBL: Minimal PROCEDURE INDICATION: The patient with low back pain secondary to lumbar facet arthropathy who had more than 50% relief of her pain with previous diagnostic lumbar medial branch block with bupivacaine. PROCEDURE DESCRIPTION / TECHNIQUE: The patient was seen and identified in the preoperative area. Risks, benefits, complications, including but not limited to risk of infection ,bleeding , allergic reactions to the medications and no complete pain releife , and alternatives were discussed with the patient, the patient agreed to proceed with the procedure and signed the consent. IV was started. Vital signs remained stable throughout the procedure. Patient was taken to the OR and time out was completed. The patient was placed in the prone position on the procedure table. The lumber area was prepped and draped in the usual sterile fashion. . Vital signs were closely monitored during the procedure .IV sedation was used during the procedure to decrease patients anxiety. Using AP and then oblique fluoroscopy, the ``eye of the Sen dog corresponding to the connection between the superior and transverse articular processes of Left L2 , L3, L4, and L5 were identified, marked, and localized with 1% lidocaine. Subsequently, a 18 -ct radiofrequency cannula with a 10-mm active tip was advanced guided by fluoroscopy to each of the ``eyes of the Sen dog at Left L2 , L3, L4, and L5. Each site then underwent sensory testing at 50 Hz and 0 to 1 volt and motor testing at 2.5 Hz and 0 to 3 volt with local stimulation, but no radicular symptoms down the legs. Thereafter the Left L2-3 , L3-4, L4-5, and L5-S1 sites underwent radiofrequency thermocoagulation at 80 degrees celsius for 90 seconds after injecting 0.5 ml of PF lidocaine 1%. then After the thermocoagulation done , 1 ml of the block solution containing Kenalog 40 mg and 4 ml of marain 0.5% was injected at the Left L2-3 ,L3-4 , L4-5 , and L5-S1, levels after negative aspiration of CSF and blood and with no paresthesias. Cannulas were retracted while injecting lidocaine 1% until the needle is out.. At the end of the procedure, the skin was cleansed and bandages were applied. COMPLICATIONS: No acute complications. DISPOSITION / PLANS: The patient was placed in a supine position and transferred to the recovery area in a stable condition for observation and was discharged from the recovery room after meeting discharge criteria. Home discharge instructions given to the patient by the staff. The patient was reexamined prior to discharge. The patient will schedule a follow up in the clinic in 2-4 weeks.
[2017-07-10] MEDS ORDERED: IV FLUID CONTINUATION 200 ML IV ONE (08:50)
--- NOTE | 2017-07-10 09:02 | FL ---
EXAMINATION TYPE: FL guided pain mgmt statistic DATE OF EXAM: 07/10/2017 HISTORY: Flouroscopy time 25 seconds of fluoroscopy provided. IMPRESSION: 1. Fluoroscopy time.
[2017-07-10 09:32] VITALS: RESP 18
[2017-07-10 09:35] VITALS: BP 104/55; PULSE 61
== END 2017-07-10 09:25 | disposition home or self-care (01) ==
LOC: ORPAIN 06:19
PROVIDERS: ATTEND Specialist
DX: M47.816 Spondylosis without myelopathy or radiculopathy, lumbar region (principal); M51.36 Other intervertebral disc degeneration, lumbar region; I10 Essential (primary) hypertension; K21.9 Gastro-esophageal reflux disease without esophagitis; E03.9 Hypothyroidism, unspecified
CPT/HCPCS: 81025; 64635; 64636 ×3; J2250; J3301; J3010; 99152; 99153

== ENCOUNTER 2017-09-05 09:20 | Day surgery (SDC) | payer OTHER ==
[2017-08-30 11:35] VITALS: BMI 32.3
[2017-09-05 09:44] VITALS: RESP 16; TEMP 97.5
[2017-09-05] MEDS ORDERED: LACTATED RINGERS 1,000 ML IV ONE (09:49)
[2017-09-05] MEDS ORDERED: LIDOCAINE 1% 20 ML VIAL (10MG/ML) FOR IV START INTRADERMA ONE (09:49)
--- NOTE | 2017-09-05 10:27 | P.PCN ---
Date of Procedure: 09/05/17 Preoperative Diagnosis: Lumbar spondylosis without myelopathy Postoperative Diagnosis: Lumbar spondylosis without myelopathy Condition: stable Disposition: PACU Description of Procedure: Date of Procedure: 09/05/2017 Procedure(s) Performed: PREOPERATIVE DIAGNOSIS: 1. Lumbar Spondylosis with Facet Arthropathy without myelopathy. 2-. Lumber degenerative disc disease POSTOPERATIVE DIAGNOSIS: 1. Lumbar Spondylosis with Facet Arthropathy without myelopathy. 2-. Lumber degenerative disc disease PROCEDURES: Right Radiofrequency thermocoagulation, L2-3 , L3-L4, L4-L5, and L5- S1 medial branch, with fluoroscopic guidance SURGEON: Kota Sanches M.D. ANESTHESIA: Moderate sedation with intravenous versed 2 mg and fentaneyl 100 mcg and local infiltration with lidocaine 1% 4 ml EBL: Minimal PROCEDURE INDICATION: The patient with low back pain secondary to lumbar facet arthropathy who had more than 50% relief of her pain with previous diagnostic lumbar medial branch block with bupivacaine. PROCEDURE DESCRIPTION / TECHNIQUE: The patient was seen and identified in the preoperative area. Risks, benefits, complications, including but not limited to risk of infection ,bleeding , allergic reactions to the medications and no complete pain releife , and alternatives were discussed with the patient, the patient agreed to proceed with the procedure and signed the consent. IV was started. Vital signs remained stable throughout the procedure. Patient was taken to the OR and time out was completed. The patient was placed in the prone position on the procedure table. The lumber area was prepped and draped in the usual sterile fashion. . Vital signs were closely monitored during the procedure .IV sedation was used during the procedure to decrease patients anxiety. Using AP and then oblique fluoroscopy, the ``eye of the Sen dog corresponding to the connection between the superior and transverse articular processes of Left L2 , L3, L4, and L5 were identified, marked, and localized with 1% lidocaine. Subsequently, a 18 -vk radiofrequency cannula with a 10-mm active tip was advanced guided by fluoroscopy to each of the ``eyes of the Sen dog at Left L2 , L3, L4, and L5. Each site then underwent sensory testing at 50 Hz and 0 to 1 volt and motor testing at 2.5 Hz and 0 to 3 volt with local stimulation, but no radicular symptoms down the legs. Thereafter the Left L2-3 , L3-4, L4-5, and L5-S1 sites underwent radiofrequency thermocoagulation at 80 degrees celsius for 90 seconds after injecting 0.5 ml of PF lidocaine 1%. then After the thermocoagulation done , 1 ml of the block solution containing Kenalog 40 mg and 4 ml of marain 0.5% was injected at the Left L2-3 ,L3-4 , L4-5 , and L5-S1, levels after negative aspiration of CSF and blood and with no paresthesias. Cannulas were retracted while injecting lidocaine 1% until the needle is out.. At the end of the procedure, the skin was cleansed and bandages were applied. COMPLICATIONS: No acute complications. DISPOSITION / PLANS: The patient was placed in a supine position and transferred to the recovery area in a stable condition for observation and was discharged from the recovery room after meeting discharge criteria. Home discharge instructions given to the patient by the staff. The patient was reexamined prior to discharge. The patient will schedule a follow up in the clinic in 2-4 weeks.
[2017-09-05] MEDS ORDERED: IV FLUID CONTINUATION 500 ML IV ONE (11:10)
--- NOTE | 2017-09-05 11:11 | FL ---
EXAMINATION TYPE: FL guided pain mgmt statistic DATE OF EXAM: 09/05/2017 CLINICAL HISTORY: Low back pain. TECHNIQUE: Fluoroscopy. COMPARISON: None. FINDINGS: Fluoroscopic guidance was provided during pain relief procedure performed by Dr. Sanches . A total of 24 seconds of fluoroscopic time was utilized during the procedure and 3 spot images are a cquired. Images acquired shows needle localization at multiple levels off the midline in the lower l umbar spine. IMPRESSION: As Above.
[2017-09-05 11:25] VITALS: BP 124/72; PULSE 62
== END 2017-09-05 11:36 | disposition home or self-care (01) ==
LOC: ORPAIN 09:20
PROVIDERS: ATTEND Anesthesiology
DX: M47.816 Spondylosis without myelopathy or radiculopathy, lumbar region (principal)
CPT/HCPCS: 64635; 64636 ×3; J2250; J3301; J2001; J3010; 99152

== ENCOUNTER → 2017-10-03 | Outpatient (CLI) | payer OTHER ==
[2017-10-03 12:11] VITALS: BP 137/80; PULSE 58; RESP 16
--- NOTE | 2017-10-04 13:39 | P.PN ---
Subjective Progress Note Date: 10/03/17 This is follow-up visit for this patient with a history of severe and chronic low back pain secondary to lumbar degenerative disc disease, lumbar facet arthropathy, We have done an interventional pain procedure , radiofrequency ablation of the medial branch lumbar area, and she reported that the procedure helped her low back pain significantly, and improved ability of doing activity of daily livings The patient currently on Neurontin 100 mg 3 times a day Objective - Vital Signs Vital signs: Vital Signs Temp Pulse 58 L 10/03/17 12:04 Resp 16 10/03/17 12:04 BP 137/80 10/03/17 12:04 Pulse Ox 97 10/03/17 12:04 Intake & Output 10/03/17 10/04/17 10/04/17 18:59 06:59 18:59 Weight 90.718 kg - Exam Physical Examinations : 1-Constitutiona : Cooperative , not in acute distress . 2-HEENT : nech ; supple , no Lymphadenopathy , normal thyroid size . eyes : no ptosis , no icterus, no photophobia . ENT : normal of hearing , normal oropharynx , no Thrush . 3- Respiratory : Chest clear to auscultations Bilaterally , no wheezing , no Rhonchi . 4- Cardiovascular : regular rate and rhythem , S1 , S2 , no S3 , no S4. 5- Gastrointestinal : abdomen soft no tenderness , bowel sounds , no organomegally . 6- Genitourinary : Defferred . 7- neurologic : Cranial nerve II to XII intact , no focal neurological deffecit . 8-psychatric : alert , oriented X 3 , appropriate affect , intact judgment and insight . 9-Lymphatic : no Lymphadenopathy . 10- musculoskeltal : Lumber spine = normal moter stegnth lower extremities ,thigh and legs .5/5 Assessment and Plan Plan: Assessment and plan= chronic low back pain secondary to lumbar degenerative disc disease , lumbar spondylosis with lumbar facet arthropathy . Patient doing well after the radiofrequency ablation of the medial branch lumbar area, she will follow up with the pain clinic when necessary Patient will continue to use Neurontin 100 mg 3 times a day Time with Patient: Less than 30
== END | disposition home or self-care (01) ==
LOC: PNWHC3 11:24
PROVIDERS: ATTEND Specialist
DX: G89.29 Other chronic pain (principal); M54.5 Low back pain; M51.36 Other intervertebral disc degeneration, lumbar region; M47.816 Spondylosis without myelopathy or radiculopathy, lumbar region; M46.86 Other specified inflammatory spondylopathies, lumbar region; Z79.899 Other long term (current) drug therapy
CPT/HCPCS: 99211

== ENCOUNTER → 2017-11-21 | Outpatient (CLI) | payer OTHER ==
--- NOTE | 2017-11-25 10:14 | MM ---
Reason for exam: screening (asymptomatic). Last mammogram was performed 5 years and 2 months ago. Physical Findings: A clinical breast exam by your physician is recommended on an annual basis and results should be correlated with mammographic findings. MG Screening Mammo w CAD Bilateral CC and MLO view(s) were taken. Prior study comparison: September 30, 2012, mammogram, performed at [facility]. There are scattered fibroglandular densities. New oil cyst on the left. Increased breast volume as compared to 2013. Query any weight gain in the interval. Asymmetric density central left CC view probable summation shadow but warrants further evaluation as it is new. ASSESSMENT: Incomplete: need additional imaging evaluation, BI-RAD 0 RECOMMENDATION: Special view mammogram of the left breast. If lesion persists on supplemental views, image directed ultrasound is recommended. [facility] will attempt to contact patient to return for supplemental views and ultrasound if indicated.
== END | disposition home or self-care (01) ==
LOC: RADMAMWWP 09:10
PROVIDERS: ATTEND Family Medicine
DX: Z12.31 Encounter for screening mammogram for malignant neoplasm of breast (principal)
CPT/HCPCS: 77067

== ENCOUNTER → 2017-11-29 | Outpatient (CLI) | payer OTHER ==
--- NOTE | 2017-12-02 08:56 | MM ---
Reason for exam: additional evaluation requested from abnormal screening. Last mammogram was performed less than 1 month ago. History: Patient is postmenopausal and is nulliparous. Physical Findings: Nurse did not find any significant physical abnormalities on exam. MG Work Up Mamm w CAD LT CC and MLO view(s) were taken of the left breast. Prior study comparison: November 21, 2017, bilateral MG screening mammo w CAD. October 01, 2012, mammogram, performed at [facility]. There are scattered fibroglandular densities. There is no dominant lesion. There is no discrete abnormality. These results were verbally communicated with the patient and result sheet given to the patient on 11/29/17. ASSESSMENT: Benign, BI-RAD 2 RECOMMENDATION: Return to routine screening mammogram schedule for both breasts.
== END | disposition home or self-care (01) ==
LOC: RADMAMWWP 09:30
PROVIDERS: ATTEND Family Medicine
DX: R92.8 Other abnormal and inconclusive findings on diagnostic imaging of breast (principal)
CPT/HCPCS: 77065

== ENCOUNTER → 2018-07-30 | Outpatient (CLI) | payer OTHER ==
[2018-07-30 15:03] VITALS: RESP 16
[2018-07-30 15:10] VITALS: BP 127/73; PULSE 55; TEMP 98.4
--- NOTE | 2018-07-30 15:13 | P.PAINPG ---
Subjective Progress Note Date: 07/30/18 This is a follow-up visit for this 58 years old female with a chronic history of severe low back pain, she is diagnosed with lumbar degenerative disc disease and lumbar spondylosis with lumbar facet arthropathy without myelopathy, last seen almost 1 year ago, in June 2017 we have done radiofrequency ablation of the left-sided medial branch, and in August we did the radiofrequency on the right side, the patient did very well until recently, she started complaining of severe low back pain, mainly on the left side, intractable interfering with the quality of life, intensity of the pain 6/10 increased to 10 over 10 with any activity, she denies any fever or night sweats she denies any motor or sensory deficits, she denies any change in the bowel movement or urination, she is currently on Neurontin 100 mg 3 times a day, he is getting prescription refill from her primary care, she denies any side effects of the medication Objective - Vital Signs Vital signs: Vital Signs Temp Pulse Resp 16 07/30/18 15:02 BP Pulse Ox Intake & Output 07/29/18 07/30/18 07/30/18 18:59 06:59 18:59 Weight 90.718 kg - Exam Physical Examinations : -Constitutiona : Cooperative , not in acute distress . -HEENT : nech ; supple , no Lymphadenopathy , normal thyroid size . eyes : no ptosis , no icterus, no photophobia . ENT : normal of hearing , normal oropharynx , no Thrush . - Respiratory : Chest clear to auscultations Bilaterally , no wheezing , no Rhonchi . - Cardiovascula : regular rate and rhythem , S1 , S2 , no S3 , no S4. - Gastrointestina : abdomen soft no tenderness , bowel sounds , no organomegally . - Genitourinary : Defferred . - neurologic : Cranial nerve II to XII intact , no focal neurological deffecit . -psychatric : alert , oriented X 3 , appropriate affect , intact judgment and insight . -Lymphatic : no Lymphadenopathy . - musculoskeltal : Lumber spine moter stegnth lower extremities ,thigh and legs 5/5 Right side , 5/5 Left side deep tendon reflexes : normal Knee Jerk , normal ankle Jerk lumber facet Loading Test , positive on the left side, negative on the right side Range of motion of the lumbar spine Flexion 60 degrees, extension 10 degrees strait leg raising test , positive at 60 degree on the left side and is negative on the right side Fabere test negative bilaterally. Sever tenderness over the Sacroiliac joint on the L sides Assessment and Plan Plan: Assessment and plan=low back pain secondary to lumbar spondylosis with lumbar facet arthropathy without myelopathy, and lumbar degenerative disc disease Patient had excellent pain relief for almost one year after the previous radiofrequency ablation of the medial branch lumbar area. Patient will be good candidate to have repeat radiofrequency on L2-3, L3 4, L4 5, L5-S1, on the left side Time with Patient: Less than 30 PQRS Measure Charge Sheet Measure #130: Documentation of Current Meds in Medical Chart: Patient's medications documented in chart Measure #226: Tobacco Use: Screen & Cessation Intervention: Pt not a tobacco user Measure #111: Pneumonia Vaccination: Pneumococcal vaccine administered or previously received Measure #47: Advance Care Plan: Advance care planning discussed & documented, plan or surrogate given Measure #412: Opioid Treatment Agreement: No documentation of signed opioid treatment agreement Measure #408: Opioid Therapy Follow-up Evaluation: Patient had NO f/u eval minimum every 3 months during opioid therapy Measure #317: Preventitive Care & Scrn High Bld Press & F/U: Normal blood pressure, f/u not required Measure #128: Body Mass Index (BMI) Screening & Follow-up: BMI documented ABOVE normal parameters - f/u documented Measure #131: Pain Assessment & Follow-up: Pain positive & plan documented, Follow-up scheduled Measure #431: Unhealthy Alcohol Use Preventative Care & Scrn: Patient not identified as an unhealthy alcohol user PQRS Narrative: Smoking Status Never smoker Hx Alcohol Use (MH) No Home Medications: Ambulatory Orders Levothyroxine Sodium [Synthroid] 125 mcg PO QAM 12/15/13 Lisinopril [Zestril] 10 mg PO QAM 09/29/14 Atorvastatin [Lipitor] 20 mg PO HS 09/28/15 Ascorbic Acid [Vitamin C] 500 mg PO QAM 03/07/16 Gabapentin [Neurontin] 100 mg PO TID PRN 03/07/16 Ferrous Sulfate [Feosol] 325 mg PO DAILY 06/04/17 Latanoprost Ophth [Xalatan 0.005%] 1 drops BOTH EYES HS 07/05/17 Controlled Substance Measures - Controlled Substance Measures Is patient prescribed a controlled substance at discharge?: No
== END | disposition home or self-care (01) ==
LOC: PNWHC3 14:01
PROVIDERS: ATTEND Specialist
DX: G89.29 Other chronic pain (principal); M51.36 Other intervertebral disc degeneration, lumbar region; M47.816 Spondylosis without myelopathy or radiculopathy, lumbar region; M46.86 Other specified inflammatory spondylopathies, lumbar region; Z79.899 Other long term (current) drug therapy
CPT/HCPCS: 99211

== ENCOUNTER 2018-08-06 09:23 | Day surgery (SDC) | payer OTHER ==
[2018-08-05 09:25] VITALS: BMI 32.3
[~2018-08-06 09:23] MED LIST changes: -LACTATED RINGERS 1,000 ML IV SCH; +SODIUM CHLORIDE 0.9% 500 ML 500 ML IV SCH
[2018-08-06 10:23] VITALS: RESP 16; TEMP 97.1
[2018-08-06] MEDS ORDERED: LACTATED RINGERS 1,000 ML IV ONE (10:28)
[2018-08-06] MEDS ORDERED: LIDOCAINE 1% 20 ML VIAL (10MG/ML) FOR IV START INTRADERMA ONE (10:28)
--- NOTE | 2018-08-06 11:20 | P.PCN ---
Date of Procedure: 08/06/18 Procedure(s) Performed: PREOPERATIVE DIAGNOSIS: 1-Lumbar Spondylosis with Facet Arthropathy without myelopathy. 2- Lumber degenerative disc disease POSTOPERATIVE DIAGNOSIS: 1- Lumbar Spondylosis with Facet Arthropathy without myelopathy. 2- Lumber degenerative disc disease PROCEDURES : Left Radiofrequency thermocoagulation, L2-3 , L3-L4, L4-L5, and L5-S1 medial branch, with fluoroscopic guidance ANESTHESIA: Moderate sedation with intravenous versed 2 mg and fentaneyl 100 mcg and local infiltration with lidocaine 1% 4 ml EBL: Minimal PROCEDURE INDICATION: The patient with low back pain secondary to lumbar facet arthropathy who had more than 50% relief of her pain with previous diagnostic lumbar medial branch block with bupivacaine. PROCEDURE DESCRIPTION / TECHNIQUE: The patient was seen and identified in the preoperative area. Risks, benefits, complications, including but not limited to risk of infection ,bleeding , allergic reactions to the medications and no complete pain releife , and alternatives were discussed with the patient, the patient agreed to proceed with the procedure and signed the consent. IV was started. Vital signs remained stable throughout the procedure. Patient was taken to the OR and time out was completed. The patient was placed in the prone position on the procedure table. The lumber area was prepped and draped in the usual sterile fashion. . Vital signs were closely monitored during the procedure .IV sedation was used during the procedure to decrease patients anxiety. Using AP and then oblique fluoroscopy, the ``eye of the Sen dog corresponding to the connection between the superior and transverse articular p rocesses of Left L2 , L3, L4, and L5 were identified, marked, and localized with 1% lidocaine. Subsequently, a 18 [id number] radiofrequency cannula with a 10-mm active tip was advanced guided by fluoroscopy to each of the ``eyes of the Sen dog at Left L2 , L3, L4, and L5. Each site then underwent sensory testing at 50 Hz and 0 to 1 volt and motor testing at 2.5 Hz and 0 to 3 volt with local stimulation, but no radicular symptoms down the legs. Thereafter the Left L2-3 , L3-4, L4-5, and L5-S1 sites underwent radiofrequency thermocoagulation at 80 degrees celsius for 90 seconds after injecting 0.5 ml of PF lidocaine 1%. then After the thermocoagulation done , 1 ml of the block solution containing Depo-Medrol 40 mg and 4 ml of Ropivacaine 0.5% was injected at the Left L2-3 ,L3-4 , L4-5 , and L5-S1, levels after negative aspiration of CSF and blood and with no paresthesias. Cannulas were retracted while injecting lidocaine 1% until the needle is out.. At the end of the procedure, the skin was cleansed and bandages were applied. COMPLICATIONS: No acute complications. DISPOSITION / PLANS: The patient was placed in a supine position and transferred to the recovery area in a stable condition for observation and was discharged from the recovery room after meeting discharge criteria. Home discharge instructions given to the patient by the staff. The patient was reexamined prior to discharge. The patient will schedule a follow up in the clinic in 2-4 weeks.
[2018-08-06] MEDS ORDERED: IV FLUID CONTINUATION 1,000 ML IV ONE ×2 (11:31)
[2018-08-06 11:40] VITALS: BP 139/84; PULSE 72
--- NOTE | 2018-08-06 12:03 | FL ---
EXAMINATION TYPE: FL guided pain mgmt statistic DATE OF EXAM: 08/06/2018 CLINICAL HISTORY: Low back pain. TECHNIQUE: Fluoroscopy. COMPARISON: None. FINDINGS: Fluoroscopic guidance was provided during pain relief procedure performed by Dr. Jerry . A total of 9 seconds of fluoroscopic time was utilized during the procedure and 3 spot images are acquired. Images acquired shows needle localization at multiple levels within the lumbosacral spine. IMPRESSION: As Above.
== END 2018-08-06 12:00 | disposition home or self-care (01) ==
LOC: ORPAIN 09:23
PROVIDERS: ATTEND Specialist
DX: M47.816 Spondylosis without myelopathy or radiculopathy, lumbar region (principal); I10 Essential (primary) hypertension; M51.36 Other intervertebral disc degeneration, lumbar region
CPT/HCPCS: 64635; 64636 ×3; J2250; J1030; J3010; 99152

== ENCOUNTER 2018-08-27 07:55 | Day surgery (SDC) | payer OTHER ==
[2018-08-20 09:31] VITALS: BMI 32.3
[2018-08-27 08:28] VITALS: TEMP 97.5
[2018-08-27] MEDS ORDERED: LACTATED RINGERS 1,000 ML IV ONE (08:40)
[2018-08-27] MEDS ORDERED: LIDOCAINE 1% 20 ML VIAL (10MG/ML) FOR IV START INTRADERMA ONE (08:41)
--- NOTE | 2018-08-27 09:02 | P.PCN ---
Date of Procedure: 08/27/18 Operative Findings: PREOPERATIVE DIAGNOSIS: Lumbar Facet Arthropathy. POSTOPERATIVE DIAGNOSIS: Lumbar Facet Arthropathy. PROCEDURES : right Radiofrequency thermocoagulation, L3, L4, and L5 medial branch, with fluoroscopic guidance ANESTHESIA: IV sedation with versed and fentanyl and local infiltration with lidocaine 1% 10 ml EBL: Minimal PROCEDURE INDICATION: The patient with low back pain secondary to lumbar facet arthropathy who had more than 50% relief of pain with previous diagnostic lumbar medial branch block with local anesthetic. PROCEDURE DESCRIPTION / TECHNIQUE: The patient was seen and identified in the preoperative area. Risks, benefits, complications, including but not limited to risk of infection ,bleeding , allergic reactions to the medications and no complete pain relief , and alternatives were discussed with the patient, the patient agreed to proceed with the procedure and signed the consent. IV was started. Vital signs remained stable throughout the procedure. Patient was taken to the OR and time out was completed. The patient was placed in the prone position on the procedure table. The lumber area was prepped and draped in the usual sterile fashion. . Vital signs were closely monitored during the procedure .IV sedation was used during the procedure to decrease patient anxiety. Using AP and then oblique fluoroscopy, the eye of the Sen dog corresponding to the connection between the superior and transverse articular processes of right L3, L4, and L5 were identified, marked, and localized with 1% lidocaine. Subsequently, a 20 [id number] radiofrequency cannula with a 10-mm active tip was advanced guided by fluoroscopy to each of the eyes of the Sen dog at L3, L4, and L5. Each site then underwent sensory testing at 50 Hz and 0 to 1 volt and motor testing at 2.5 Hz and 0 to 3 volt with local stimulation, but no radicular symptoms down the legs. Thereafter the L3, L4, and L5 sites underwent radiofrequency thermocoagulation at 80 degrees celsius for 90 seconds after injecting 0.5 ml of PF lidocaine 1%. Then after the thermocoagulation was done , 1 ml of the block solution containing marcaine 0.5% was injected at the right L3 , L4 , and L5, levels after negative aspiration of CSF and blood and with no paresthesias. Cannulas were retracted. At the end of the procedure, the skin was cleansed and bandages were applied. COMPLICATIONS: No acute complications. DISPOSITION / PLANS: The patient was placed in a supine position and transferred to the recovery area in a stable condition for observation and was discharged from the recovery room after meeting discharge criteria. Home discharge instructions given to the patient by the staff. The patient was reexamined prior to discharge. f/u in clinic in 4 weeks for follow up
--- NOTE | 2018-08-27 09:34 | FL ---
EXAMINATION TYPE: FL guided pain mgmt statistic DATE OF EXAM: 08/27/2018 HISTORY: Flouroscopy time 17 seconds of fluoroscopy provided. IMPRESSION: 1. Fluoroscopy time.
[2018-08-27 10:17] VITALS: BP 125/78; PULSE 60; RESP 18
[2018-08-27] MEDS ORDERED: IV FLUID CONTINUATION 700 ML IV ONE (10:17)
== END 2018-08-27 10:15 | disposition home or self-care (01) ==
LOC: ORPAIN 07:55
PROVIDERS: ATTEND Hospitalist
DX: M47.816 Spondylosis without myelopathy or radiculopathy, lumbar region (principal); G89.29 Other chronic pain; M51.36 Other intervertebral disc degeneration, lumbar region; Z79.899 Other long term (current) drug therapy; Z79.890 Hormone replacement therapy
CPT/HCPCS: 64635; 64636; J2250; J2001; J3010; 99152

== ENCOUNTER → 2018-10-06 | Outpatient (CLI) | payer OTHER ==
[2018-10-06 12:41] VITALS: BP 146/80; PULSE 65; RESP 16
--- NOTE | 2018-10-06 12:59 | P.PN ---
Progress Note - Text Progress Note Date: 10/06/18 Patient returns for followup for chronic back pain. She's had bilateral radio presumably ablations at L3-L4, L4-L5, L5-S1. Overall doing well VAS is a 1-2 out of 10 in severity at worst. Range of motion is improved significantly pain is seemingly reduced with activities, ADLs improved overall. Overall patient is doing well. In addition to above, 13-point review of systems is also negative for chest pain, shortness of breath, changes in vision, changes in hearing, new onset weakness, abdominal pain, diarrhea, extreme fatigue, malaise, fever, skin changes, homicidal or suicidal ideation, or bowel or bladder incontinence. Vital Signs: Reviewed in EMR Gen: WDWN, AAOx3, NAD HEENT: NCAT, EOMI, hearing grossly normal Pulm: resp unlabored Abd: soft, NT, ND Neck: supple, trachea midline ROM in flexion lumbar spine: Elicited pain beyond 60 ROM in extension lumbar spine: Good extension to -10 Lumbar paravertebral tenderness: + Facet loading: Negative bilateral SI joint tenderness: negative 's test: + Straight leg raise: neg bilaterally Lower extremity: decreased strength bilateral LEs Neuro: CN II-XII grossly intact Imaging: Reviewed in EMR Assessment: 1. lumbar radiculopathy 2. lumbar DDD 3. Lumbar spondylosis without myelopathy Plan: 1. Explanation: Opioid and psychological risk scores were reviewed. Diagnoses, prognoses, and multiple treatment options including but not limited to physical therapy, interventional therapies, adjuvant medical therapies, narcotic medication therapies, and surgery were discussed with the patient and all questions were answered to the patient's satisfaction. 2. Opioid agreement: no medications prescribed 3. Counseling: The patient was counseled extensively on obesity and exercise in the context of both chronic pain and overall health. 4. Procedures: none for now 5. Consultations: None 6. Investigations: None 7. Medications: none prescribed 8. Disposition: Follow-up when needed. PQRS measures: 1-Patient's medications are documented in the chart. 2-Tobacco use is negative 3-Patient has not had a pneumococcal vaccine. 4-Advanced care planning discussed, patient unable to give. 5-Opioid contract NOT signed with the patient as we do not prescribe narcotics 6-Pain positive, follow-up visit or procedure scheduled 7-Patient's blood pressure measured and documented, and patient will follow up with the primary care due to hypertension. 8-Patient's weight was measured, and body mass index ABOVE the normal limits, and counseling was done. Patient instructed to follow up with PCP. 9-Patient WAS NOT identified as an unhealthy alcohol user.
== END ==
LOC: PNWHC3 12:28
PROVIDERS: ATTEND Anesthesiology
DX: M51.16 Intervertebral disc disorders with radiculopathy, lumbar region (principal); M47.26 Other spondylosis with radiculopathy, lumbar region
CPT/HCPCS: 99211

== ENCOUNTER → 2018-10-06 | Outpatient (CLI) | payer OTHER ==
[2018-10-06 12:44] LABS: Basophils % (A) 1 %; Eosinophils # (A) 0.2 k/uL (0-0.7); Eosinophils % (A) 3 %; HCT 38.6 % (34.0-46.0); HGB 12.2 gm/dL (11.4-16.0); Lymphocytes % (A) 18 %; MCH 29.5 pg (25.0-35.0); MCHC 31.6 g/dL (31.0-37.0); MCV 93.4 fL (80.0-100.0); Mean Platelet Volume 7.2; Monocytes # (A) 0.2 k/uL (0-1.0); Monocytes % (A) 4 %; Neutrophils % (A) 72 %; Platelet Count 230 k/uL (150-450); RBC 4.14 m/uL (3.80-5.40); RDW 14.9 % (11.5-15.5); WBC 5.5 k/uL (3.8-10.6)
[2018-10-06 19:25] LABS: Albumin 3.9 g/dL (3.80-4.90); Albumin/Globulin Ratio 1.7 (1.60-3.17); Calcium 9.1 mg/dL (8.7-10.3); Globulin 2.3 g/dL (1.6-3.3); LDL Cholesterol,Calculated 90.6 mg/dL (0.0-131.0); Potassium 4.1 mmol/L (3.5-5.5); Total Bilirubin 0.5 mg/dL (0.2-1.2); Total Protein 6.2 g/dL (6.2-8.2); VLDL Calculation 17.4 mg/dL (5.00-40.00)
[2018-10-06 19:33] LABS: T4, Free (Free Thyroxine) 1.1 ng/dL (0.80-1.80)
== END | disposition home or self-care (01) ==
LOC: LABWHC1 11:51
PROVIDERS: ATTEND Family Medicine
DX: Z00.00 Encounter for general adult medical examination without abnormal findings (principal)
CPT/HCPCS: 36415; 80053; 80061; 82306; 84439; 84443; 84481; 85025

== ENCOUNTER → 2018-12-25 | Outpatient (CLI) | payer OTHER ==
--- NOTE | 2018-12-26 15:03 | MM ---
Reason for exam: screening (asymptomatic). Last mammogram was performed 1 year and 1 month ago. History: Patient is postmenopausal and is nulliparous. Physical Findings: A clinical breast exam by your physician is recommended on an annual basis and results should be correlated with mammographic findings. MG Screening Mammo w CAD Bilateral CC, MLO, and XCCL view(s) were taken. Prior study comparison: November 29, 2017, left breast MG work up mamm w CAD LT. November 21, 2017, bilateral MG screening mammo w CAD. There are scattered fibroglandular densities. Benign appearing bilateral calcifications. No suspicious abnormality. No significant changes when compared with prior studies. ASSESSMENT: Benign, BI-RAD 2 RECOMMENDATION: Routine screening mammogram of both breasts in 1 year.
== END | disposition home or self-care (01) ==
LOC: RADMAMWWP 14:53
PROVIDERS: ATTEND Family Medicine
DX: Z12.31 Encounter for screening mammogram for malignant neoplasm of breast (principal)
CPT/HCPCS: 77067

== ENCOUNTER → 2019-06-08 | Outpatient (CLI) | payer OTHER ==
[2019-06-08 13:50] VITALS: BP 151/73; PULSE 57; RESP 16
--- NOTE | 2019-06-10 06:28 | P.PAINPG ---
Subjective Progress Note Date: 06/08/19 This is a follow-up visit for this 59 years old female with a chronic history of severe low back pain, she is diagnosed with lumbar degenerative disc disease and lumbar spondylosis with lumbar facet arthropathy without myelopathy, last seen almost 1 year ago, in July 2018 we have done radiofrequency ablation of the medial branch umber area, the patient did very well until recently, she started complaining of severe low back pain, intractable interfering with the quality of life, intensity of the pain 6/10 increased to 10 over 10 with any activity, she denies any fever or night sweats she denies any motor or sensory deficits, she denies any change in the bowel movement or urination, she is currently on Neurontin 100 mg 3 times a day, he is getting prescription refill from her primary care, she denies any side effects of the medication Objective - Vital Signs Vital signs: Vital Signs Temp Pulse 57 L 06/08/19 13:46 Resp 16 06/08/19 13:46 BP 151/73 06/08/19 13:46 Pulse Ox 100 06/08/19 13:46 - Exam Physical Examinations : -Constitutiona : Cooperative , not in acute distress . -HEENT : nech : supple , no Lymphadenopathy , normal thyroid size . : eyes : no ptosis , no icterus, no photophobia . - neurologic : Cranial nerve II to XII intact , no focal neurological deffecit . -psychatric : alert , oriented X 3 , appropriate affect , intact judgment and insight . -Lymphatic : no Lymphadenopathy . - musculoskeltal : Lumber spine moter stegnth lower extremities ,thigh and legs 5/5 Right side , 5/5 Left side deep tendon reflexes : normal Knee Jerk , normal ankle Jerk lumber facet Loading Test =positive Right , positive Left Range of motion of the lumbar spine Flexion 30 degrees, extension 10 degrees strait leg raising test = positive at 45 degree Fabere test= positive Right , and positive LT . Assessment and Plan Plan: Assessment and plan=1 lumbar spondylosis with lumbar facet arthropathy. 2-lumbar degenerative disc disease. she had excellent pain relief after radiofrequency ablation of the medial branch lumbar area done July 2018, She will be good candidate to have a repeat radiofrequency ablation at L2, L3, L4, L5, and to the left side first (2 [place] the facet joint at L3 -4, L4- 5 ,and L5-S1 Time with Patient: Less than 30 PQRS Measure Charge Sheet Measure #130: Documentation of Current Meds in Medical Chart: Patient's medications documented in chart Measure #226: Tobacco Use: Screen & Cessation Intervention: Pt not a tobacco user Measure #111: Pneumonia Vaccination: Pneumococcal vaccine NOT administered or previously given Measure #47: Advance Care Plan: Advance care planning discussed & documented, pt chose/unable to give Measure #412: Opioid Treatment Agreement: No documentation of signed opioid treatment agreement Measure #408: Opioid Therapy Follow-up Evaluation: Patient had NO f/u eval minimum every 3 months during opioid therapy Measure #317: Preventitive Care & Scrn High Bld Press & F/U: Pre-hypertensive or hypertensive BP documented, pt will f/u with PCP Measure #128: Body Mass Index (BMI) Screening & Follow-up: BMI documented ABOVE normal parameters - f/u documented Measure #131: Pain Assessment & Follow-up: Pain positive & plan documented, Follow-up scheduled Measure #431: Unhealthy Alcohol Use Preventative Care & Scrn: Patient not identified as an unhealthy alcohol user PQRS Narrative: Smoking Status Never smoker Blood Pressure 151/73 Pain Intensity [Back] 5 Scale Used Numeric (1 - 10) Hx Alcohol Use (MH) No Home Medications: Ambulatory Orders Levothyroxine Sodium [Synthroid] 125 mcg PO QAM 12/15/13 Lisinopril [Zestril] 10 mg PO QAM 09/29/14 Atorvastatin [Lipitor] 20 mg PO HS 09/28/15 Ascorbic Acid [Vitamin C] 500 mg PO QAM 03/07/16 Gabapentin [Neurontin] 100 mg PO TID PRN 03/07/16 Ferrous Sulfate [Feosol] 325 mg PO DAILY 06/04/17 Latanoprost Ophth [Xalatan 0.005%] 1 drops BOTH EYES HS 07/05/17 Controlled Substance Measures - Controlled Substance Measures Is patient prescribed a controlled substance at discharge?: No
== END | disposition home or self-care (01) ==
LOC: PNWHC3 13:21
PROVIDERS: ATTEND Specialist
DX: M51.36 Other intervertebral disc degeneration, lumbar region (principal); M47.816 Spondylosis without myelopathy or radiculopathy, lumbar region; M46.96 Unspecified inflammatory spondylopathy, lumbar region; Z98.890 Other specified postprocedural states; Z79.890 Hormone replacement therapy; Z79.899 Other long term (current) drug therapy
CPT/HCPCS: 99211

== ENCOUNTER 2019-06-22 07:37 | Day surgery (SDC) | payer OTHER ==
[2019-06-19 09:16] VITALS: BMI 32.3
[~2019-06-22 07:37] MED LIST changes: +BUPIVACAINE (PF) 0.5% 30 ML VIAL ONE; +LACTATED RINGERS 1,000 ML IV SCH; +MIDAZOLAM 2 MG/2 ML VIAL ONE; -SODIUM CHLORIDE 0.9% 500 ML 500 ML IV SCH; +fentaNYL (PF) 50 MCG/ML 2 ML AMP ONE; +methylPREDNISolone ACETATE 40 MG/ML 1 ML VIAL ONE
[2019-06-22 08:57] VITALS: RESP 16; TEMP 97.7
--- NOTE | 2019-06-22 09:57 | P.PCN ---
Date of Procedure: 06/22/19 Procedure(s) Performed: PREOPERATIVE DIAGNOSIS: 1-Lumbar Spondylosis with Facet Arthropathy without myelopathy. 2- Lumber degenerative disc disease POSTOPERATIVE DIAGNOSIS: 1- Lumbar Spondylosis with Facet Arthropathy without myelopathy. 2- Lumber degenerative disc disease PROCEDURES : Left Radiofrequency thermocoagulation, L2 , L3 , L4 , and L5 medial branch, with fluoroscopic guidance (fluoroscopy images available at radiology department ) (to denervated left side facet joint at L3- 4, L4- 5 , L5-S1 levels ) ANESTHESIA: Moderate sedation with intravenous versed 2 mg and fentaneyl 100 mcg . EBL: Minimal PROCEDURE INDICATION: The patient with low back pain secondary to lumbar facet arthropathy who had more than 50% relief of her pain with previous diagnostic lumbar medial branch block with bupivacaine. PROCEDURE DESCRIPTION / TECHNIQUE: The patient was seen and identified in the preoperative area. Risks, benefits, complications, including but not limited to risk of infection ,bleeding , allergic reactions to the medications and no complete pain releife , and alternatives were discussed with the patient, the patient agreed to proceed with the procedure and signed the consent. IV was started. Vital signs remained stable throughout the procedure. Patient was taken to the OR and time out was completed. The patient was placed in the prone position on the procedure table. The lumber area was prepped and draped in the usual sterile fashion. . Vital signs were closely monitored during the procedure .IV sedation was used during the procedure to decrease patients anxiety. Using AP and then oblique fluoroscopy, the ``eye of the Sen dog corresponding to the connection between the superior and transverse articular processes of Left L2 , L3, L4, and L5 were identified, marked, and localized with 1 ml 0.5% ropivacaine . Subsequently, a 18 -zj radiofrequency cannula with a 10-mm active tip was advanced guided by fluoroscopy to each of the ``eyes of the Sen dog at Left L2 , L3, L4, and L5. Each site then underwent sensory testing at 50 Hz and 0 to 1 volt and motor testing at 2.5 Hz and 0 to 3 volt with local stimulation, but no radicular symptoms down the legs. Thereafter the Left L2, , L3 , L4 , and L5 sites underwent radiofrequency thermocoagulation at 80 degrees celsius for 90 seconds after injecting 0.5 ml of PF ropivacaine 0.5 %. then After the thermocoagulation done , 1 ml of the block solution containing Depo-Medrol 40 mg and 4 ml of ropivacaine 0.5% was injected at the Left L2 , L3 , L4 , and L5 , levels after negative aspiration of CSF and blood and with no paresthesias. Cannulas were retracted while injecting lidocaine 1% until the needle is out.. At the end of the procedure, the skin was cleansed and bandages were applied. COMPLICATIONS: No acute complications. DISPOSITION / PLANS: The patient was placed in a supine position and transferred to the recovery area in a stable condition for observation and was discharged from the recovery room after meeting discharge criteria. Home discharge instructions given to the patient by the staff. The patient was reexamined prior to discharge. The patient will schedule a follow up in the [facility] in 2-4 weeks.
[2019-06-22] MEDS ORDERED: IV FLUID CONTINUATION 1,000 ML IV ONE (09:59)
--- NOTE | 2019-06-22 10:14 | FL ---
EXAMINATION TYPE: FL guided pain mgmt statistic DATE OF EXAM: 06/22/2019 CLINICAL HISTORY: Low back pain. TECHNIQUE: Fluoroscopy. COMPARISON: None. FINDINGS: Fluoroscopic guidance was provided during pain relief procedure performed by Dr. Jerry . A total of 9 seconds of fluoroscopic time was utilized during the procedure and 3 spot images are acquired. Images acquired shows needle localization of the lumbar spine. IMPRESSION: As Above.
[2019-06-22 10:25] VITALS: BP 143/84; PULSE 51
== END 2019-06-22 10:41 | disposition home or self-care (01) ==
LOC: ORPAIN 07:37
PROVIDERS: ATTEND Specialist
DX: M47.816 Spondylosis without myelopathy or radiculopathy, lumbar region (principal); M51.36 Other intervertebral disc degeneration, lumbar region; Z78.0 Asymptomatic menopausal state
CPT/HCPCS: 64635; 64636 ×2; J2250; J1030; J3010; 99152

== ENCOUNTER 2019-07-06 07:23 | Day surgery (SDC) | payer OTHER ==
[2019-07-03 11:12] VITALS: BMI 32.3
[2019-07-06 08:27] VITALS: RESP 16; TEMP 96.6
[2019-07-06] MEDS ORDERED: LIDOCAINE 1% 20 ML VIAL (10MG/ML) FOR IV START INTRADERMA ONE (08:29)
[2019-07-06] MEDS ORDERED: IV FLUID CONTINUATION 750 ML IV ONE (09:10)
--- NOTE | 2019-07-06 09:16 | P.PCN ---
Date of Procedure: 07/06/19 Procedure(s) Performed: PREOPERATIVE DIAGNOSIS: 1-Lumbar Spondylosis with Facet Arthropathy without myelopathy. 2- Lumber degenerative disc disease POSTOPERATIVE DIAGNOSIS: 1- Lumbar Spondylosis with Facet Arthropathy without myelopathy. 2- Lumber degenerative disc disease PROCEDURES :Right Radiofrequency thermocoagulation, L2 , L3 , L4 , and L5 medial branch, with fluoroscopic guidance (fluoroscopy images available at radiology department ) (to denervated Right side facet joint at L3- 4, L4- 5 , L5-S1 levels ) ANESTHESIA: Moderate sedation with intravenous versed 2 mg and fentaneyl 100 mcg . EBL: Minimal PROCEDURE INDICATION: The patient with low back pain secondary to lumbar facet arthropathy who had more than 50% relief of her pain with previous diagnostic lumbar medial branch block with bupivacaine. PROCEDURE DESCRIPTION / TECHNIQUE: The patient was seen and identified in the preoperative area. Risks, benefits, complications, including but not limited to risk of infection ,bleeding , allergic reactions to the medications and no complete pain releife , and alternatives were discussed with the patient, the patient agreed to proceed with the procedure and signed the consent. IV was started. Vital signs remained stable throughout the procedure. Patient was taken to the OR and time out was completed. The patient was placed in the prone position on the procedure table. The lumber area was prepped and draped in the usual sterile fashion. . Vital signs were closely monitored during the procedure .IV sedation was used during the procedure to decrease patients anxiety. Using AP and then oblique fluoroscopy, the ``eye of the Sen dog corresponding to the connection between the superior and transverse articular processes of Right L2 , L3, L4, and L5 were identified, marked, and localized with 1 ml 0.5% ropivacaine . Subsequently, a 18 [id number] radiofrequency cannula with a 10-mm active tip was advanced guided by fluoroscopy to each of the ``eyes of the Sen dog at Right L2 , L3, L4, and L5. Each site then underwent sensory testing at 50 Hz and 0 to 1 volt and motor testing at 2.5 Hz and 0 to 3 volt with local stimulation, but no radicular symptoms down the legs. Thereafter the Right L2, , L3 , L4 , and L5 sites underwent radiofrequency thermocoagulation at 80 degrees celsius for 90 seconds after injecting 0.5 ml of PF ropivacaine 0.5 %. then After the thermocoagulation done , 1 ml of the block solution containing Depo-Medrol 40 mg and 4 ml of ropivacaine 0.5% was injected at the Right L2 , L3 , L4 , and L5 , levels after negative aspiration of CSF and blood and with no paresthesias. Cannulas were retracted while injecting lidocaine 1% until the needle is out.. At the end of the procedure, the skin was cleansed and bandages were applied. COMPLICATIONS: No acute complications. DISPOSITION / PLANS: The patient was placed in a supine position and transferred to the recovery area in a stable condition for observation and was discharged from the recovery room after meeting discharge criteria. Home discharge instructions given to the patient by the staff. The patient was reexamined prior to discharge. The patient will schedule a follow up in the clinic in 2-4 weeks.
--- NOTE | 2019-07-06 09:28 | FL ---
EXAMINATION TYPE: FL guided pain mgmt statistic DATE OF EXAM: 07/06/2019 CLINICAL HISTORY: Low back pain. TECHNIQUE: Fluoroscopy. COMPARISON: None. FINDINGS: Fluoroscopic guidance was provided during pain relief procedure performed by Dr. Jerry . A total of 10 seconds of fluoroscopic time was utilized during the procedure and 3 spot images are acquired. Images acquired shows needle localization of the lumbar spine at multiple levels. IMPRESSION: As Above.
[2019-07-06] MEDS ORDERED: ONDANSETRON ODT 4 MG TAB PO ONE (09:58)
[2019-07-06 10:11] VITALS: BP 114/80; PULSE 58
== END 2019-07-06 10:29 | disposition home or self-care (01) ==
LOC: ORPAIN 07:23
PROVIDERS: ATTEND Specialist
DX: M47.816 Spondylosis without myelopathy or radiculopathy, lumbar region (principal); M51.36 Other intervertebral disc degeneration, lumbar region
CPT/HCPCS: 64635; 64636 ×2; J2250; J1030; J3010; 99152

== ENCOUNTER → 2019-07-13 | Outpatient (CLI) | payer OTHER ==
[2019-07-13 14:14] VITALS: BP 135/79; PULSE 66; RESP 18
--- NOTE | 2019-07-13 14:26 | P.PAINPG ---
Subjective Progress Note Date: 07/13/19 Mrs. Barnard is a 59-year-old female presents today for follow-up after having bilateral radiofrequency ablation the lumbar spine. She had the radiofrequency ablation done about a year ago and most recently done in May 2019. She reports that she is doing very well and is not having any pain. Her VAS is 1 out of 10. She reports having a little bit of a "jumpy" feeling in her right leg but that is started yesterday. She denies any weakness in the leg. She denies any bowel or bladder incontinence or any burning sensation in the legs. Patient denies any headaches, vision changes, chest pain or shortness of breath, abdominal pain nausea or vomiting, new lower extremity weakness numbness or ti ngling. Denies any bowel or bladder incontinence Objective - Exam General: Awake and alert oriented 3 no distress Respiratory exam: No audible wheezing no accessory muscle usage Cardiovascular exam: regular rate, palpable bilateral pulses, no lower extremity edema Abdominal exam: No distention nontender to palpation Cervical spine: Normal alignment, Spurling's negative, facet loading negative, Mixing Picker Tender strength is 5/5, gonsalez negative Lumbar spine: Loss of lumbar lordosis, normal alignment, tender to palpation over bilateral paraspinal muscles, facet loading is negative bilaterally. Straight leg raise is negative. Limited range of motion due to pain with flexion, extension and side bending. Sacroiliac joints: Nontender to palpation, AMY is negative, Gaenselon negative Neuro exam: Normal sensation in bilateral upper extremities, deep tendon reflexes are 2+ bilateral upper extremities. Normal sensation in bilateral lower extremities. Deep tendon reflexes are 2+ in lower extremities Psych exam: Cooperative, appropriate mood Assessment and Plan Assessment: #1 lumbar spondylosis without myelopathy #2 chronic back pain #3 obesity Plan: Patient is status post radiofrequency ablation lumbar spine and is doing pretty well. The goal will be to monitor the patient moving forward to have her follow up with us as needed. I'll encourage her to stay physically fit and active. 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 PQRS Measure Charge Sheet Measure #130: Documentation of Current Meds in Medical Chart: Patient's medications documented in chart Measure #226: Tobacco Use: Screen & Cessation Intervention: Pt not a tobacco user Measure #111: Pneumonia Vaccination: Pneumococcal vaccine administered or previously received Measure #47: Advance Care Plan: Advance care planning discussed & documented, plan or surrogate given Measure #412: Opioid Treatment Agreement: No documentation of signed opioid treatment agreement Measure #408: Opioid Therapy Follow-up Evaluation: Patient had f/u eval minimum every 3 months during opioid therapy Measure #317: Preventitive Care & Scrn High Bld Press & F/U: Normal blood pressure, f/u not required Measure #128: Body Mass Index (BMI) Screening & Follow-up: BMI documented within normal parameters Measure #131: Pain Assessment & Follow-up: Pain positive & plan documented Measure #431: Unhealthy Alcohol Use Preventative Care & Scrn: Patient not identified as an unhealthy alcohol user PQRS Narrative: Smoking Status Never smoker Pain Intensity [None] 0 Hx Alcohol Use (MH) No Home Medications: Ambulatory Orders Levothyroxine Sodium [Synthroid] 125 mcg PO QAM 12/15/13 Lisinopril [Zestril] 10 mg PO QAM 09/29/14 Atorvastatin [Lipitor] 20 mg PO HS 09/28/15 Ascorbic Acid [Vitamin C] 500 mg PO QAM 03/07/16 Gabapentin [Neurontin] 100 mg PO TID PRN 03/07/16 Ferrous Sulfate [Feosol] 325 mg PO DAILY 06/04/17 Latanoprost Ophth [Xalatan 0.005%] 1 drops BOTH EYES HS 07/05/17 Controlled Substance Measures - Controlled Substance Measures Is patient prescribed a controlled substance at discharge?: No
== END ==
LOC: PNWHC3 13:55
PROVIDERS: ATTEND Hospitalist
DX: G89.29 Other chronic pain (principal); M47.816 Spondylosis without myelopathy or radiculopathy, lumbar region; E66.9 Obesity, unspecified; Z68.32 Body mass index [BMI] 32.0-32.9, adult; Z79.899 Other long term (current) drug therapy; Z98.890 Other specified postprocedural states
CPT/HCPCS: 99211

== ENCOUNTER → 2019-07-23 | Outpatient (CLI) | payer OTHER ==
[2019-07-23 23:21] LABS: T4, Free (Free Thyroxine) 1.2 ng/dL (0.80-1.80)
== END | disposition home or self-care (01) ==
LOC: LABWHC1 15:40
PROVIDERS: ATTEND Family Medicine
DX: E03.9 Hypothyroidism, unspecified (principal); R19.7 Diarrhea, unspecified
CPT/HCPCS: 36415; 84439; 84443; 84481

== ENCOUNTER → 2019-11-20 | Outpatient (CLI) | payer OTHER ==
[2019-11-20 08:53] LABS: Basophils % (A) 0 %; Eosinophils # (A) 0.2 k/uL (0-0.7); Eosinophils % (A) 3 %; HGB 12.6 gm/dL (11.4-16.0); Hypochromasia Slight; Lymphocytes # (A) 0.8 k/uL (1.0-4.8); Lymphocytes % (A) 13 %; MCHC 32.4 g/dL (31.0-37.0); MCV 95.9 fL (80.0-100.0); Monocytes # (A) 0.2 k/uL (0-1.0); Monocytes % (A) 4 %; Neutrophils # (A) 4.6 k/uL (1.3-7.7); Neutrophils % (A) 78 %; Platelet Count 211 k/uL (150-450); RBC 4.07 m/uL (3.80-5.40); RDW 13.9 % (11.5-15.5); WBC 5.9 k/uL (3.8-10.6)
--- NOTE | 2019-11-20 11:29 | XR ---
EXAMINATION TYPE: XR hand complete LT DATE OF EXAM: 11/20/2019 COMPARISON: None HISTORY: Pain TECHNIQUE: Three-view left hand FINDINGS: No acute fractures or dislocations are evident. Soft tissues may have minimal diffuse promi nence. No focal swelling is evident. Follow-up studies can be performed 7-10 days from acute trauma for continued pain. IMPRESSION: 1. There may be minimal soft tissue swelling diffusely. 2. No acute osseous abnormality is radiographically apparent.
[2019-11-20 15:29] LABS: African American GFR (CKD) 111.5 (60.0-200.0); Albumin 4.1 g/dL (3.80-4.90); Albumin/Globulin Ratio 1.64 (1.60-3.17); Anion Gap 3.2 mmol/L (4.00-12.00); BUN/Creat Ratio 15.71 Ratio (12.00-20.00); Carbon Dioxide 28.8 mmol/L (21.6-31.8); Chol/HDL Ratio 3.11; Globulin 2.5 g/dL (1.6-3.3); LDL Cholesterol,Calculated 82.2 mg/dL (0.0-131.0); Non-African American GFR(CKD) 96.2 (60.0-200.0); Potassium 3.9 mmol/L (3.5-5.5); Total Bilirubin 0.4 mg/dL (0.3-1.2); Total Protein 6.6 g/dL (6.2-8.2); VLDL Calculation 16.8 mg/dL (5.00-40.00)
[2019-11-20 15:36] LABS: T4, Free (Free Thyroxine) 1.2 ng/dL (0.80-1.80)
== END | disposition home or self-care (01) ==
LOC: LABWHC1 08:14
PROVIDERS: ATTEND Family Medicine
DX: M79.642 Pain in left hand (principal); Z00.00 Encounter for general adult medical examination without abnormal findings
CPT/HCPCS: 36415; 80053; 80061; 82306; 84439; 84443; 84481; 85025

== ENCOUNTER → 2020-01-06 | Outpatient (CLI) | payer OTHER ==
[2020-01-06 08:19] VITALS: BP 144/79; PULSE 65; RESP 18; TEMP 97.4
--- NOTE | 2020-01-06 08:37 | P.PAINPG ---
Subjective Progress Note Date: 01/06/20 This is a follow-up visit for this 59 years old female with a chronic history of severe low back pain, she is diagnosed with lumbar degenerative disc disease and lumbar spondylosis with lumbar facet arthropathy without myelopathy, and lumbar foraminal stenosis, previously we have done radiofrequency ablation of the medial branch umber area, the patient did very well until recently, she started complaining of severe low back pain, intractable interfering with the quality of life, intensity of the pain 6/10 increased to 10 over 10 with any activity, the pain is constant , mainly localized in the low back area with radiation to the left lower extremity ,she denies any fever or night sweats she denies any motor or sensory deficits, she denies any change in the bowel movement or urination, she is currently on Neurontin 100 mg 3 times a day, he is getting prescription refill from her primary care, she denies any side effects of the medication Objective - Vital Signs Vital signs: Vital Signs Temp 97.4 F L 01/06/20 08:12 Pulse 65 01/06/20 08:12 Resp 18 01/06/20 08:12 BP 144/79 01/06/20 08:12 Pulse Ox 95 01/06/20 08:12 - Exam Physical Examinations : -Constitutiona : Cooperative , not in acute distress . -HEENT : nech : supple , no Lymphadenopathy , normal thyroid size . : eyes : no ptosis , no icterus, no photophobia . - neurologic : Cranial nerve II to XII intact , no focal neurological deffecit . -psychatric : alert , oriented X 3 , appropriate affect , intact judgment and insight . -Lymphatic : no Lymphadenopathy . - musculoskeltal : Lumber spine moter stegnth lower extremities ,thigh and legs 5/5 Right side , 4- 5/5 Left side deep tendon reflexes : normal Knee Jerk , normal ankle Jerk lumber facet Loading Test =positive Right , positive Left Range of motion of the lumbar spine Flexion 30 degrees, extension 10 degrees strait leg raising test = positive at 45 degree bilaterally Fabere test= positive Right , and positive LT . Sever tenderness over the Sacroiliac joint on the Left sides Assessment and Plan Plan: Assessment and plan=1-lumbar spondylosis with lumbar facet arthropathy without myelopathy. 2-lumbar degenerative disc disease. 3-lumbar foraminal stenosis. Recommend to increase Neurontin dose from 100 mg 3 times a day ,to 300 mg 3 times a day, medication management by her primary care Recommend to schedule patient for repeat RFA of the medial branch lumbar area L2, L3, L4, L5 bilaterally. Treatment plan discussed with the patient and she agreed with the preceding. Time with Patient: Less than 30 PQRS Measure Charge Sheet Measure #130: Documentation of Current Meds in Medical Chart: Patient's medications documented in chart Measure #226: Tobacco Use: Screen & Cessation Intervention: Pt not a tobacco user Measure #111: Pneumonia Vaccination: Pneumococcal vaccine NOT administered or previously given Measure #47: Advance Care Plan: Advance care planning discussed & documented, pt chose/unable to give Measure #412: Opioid Treatment Agreement: No documentation of signed opioid treatment agreement Measure #408: Opioid Therapy Follow-up Evaluation: Patient had NO f/u eval minimum every 3 months during opioid therapy Measure #317: Preventitive Care & Scrn High Bld Press & F/U: Pre-hypertensive or hypertensive BP documented, pt will f/u with PCP Measure #128: Body Mass Index (BMI) Screening & Follow-up: BMI documented ABOVE normal parameters - f/u documented Measure #131: Pain Assessment & Follow-up: Pain positive & plan documented, Follow-up scheduled Measure #431: Unhealthy Alcohol Use Preventative Care & Scrn: Patient not identified as an unhealthy alcohol user PQRS Narrative: Smoking Status Never smoker Blood Pressure 144/79 Pain Intensity [Lower Back] 10 Scale Used Numeric (1 - 10) Hx Alcohol Use (MH) No Home Medications: Ambulatory Orders Levothyroxine Sodium [Synthroid] 125 mcg PO QAM 12/15/13 lisinopriL [Zestril] 10 mg PO QAM 09/29/14 Atorvastatin [Lipitor] 20 mg PO HS 09/28/15 Ascorbic Acid [Vitamin C] 500 mg PO QAM 03/07/16 Gabapentin [Neurontin] 100 mg PO TID PRN 03/07/16 Ferrous Sulfate [Feosol] 325 mg PO DAILY 06/04/17 Latanoprost Ophth [Xalatan 0.005%] 1 drops BOTH EYES HS 07/05/17 Loratadine [Claritin] 10 mg PO DAILY 12/30/19 Omeprazole [PriLOSEC] 20 mg PO [id number] 12/30/19 Controlled Substance Measures - Controlled Substance Measures Is patient prescribed a controlled substance at discharge?: No
== END | disposition home or self-care (01) ==
LOC: PNWHC3 08:03
PROVIDERS: ATTEND Specialist
DX: M48.061 Spinal stenosis, lumbar region without neurogenic claudication (principal); M51.36 Other intervertebral disc degeneration, lumbar region; M47.816 Spondylosis without myelopathy or radiculopathy, lumbar region; M46.96 Unspecified inflammatory spondylopathy, lumbar region; Z79.891 Long term (current) use of opiate analgesic; Z79.899 Other long term (current) drug therapy; Z79.890 Hormone replacement therapy
CPT/HCPCS: 99211

== ENCOUNTER → 2020-01-21 | Day surgery (SDC) | payer OTHER ==
[2020-01-15 15:55] VITALS: BMI 32.3
[~2020-01-21] MED LIST changes: -BUPIVACAINE (PF) 0.5% 30 ML VIAL ONE; +IV FLUID CONTINUATION 500 ML IV ONE; +LACTATED RINGERS 1,000 ML IV ONE; +LIDOCAINE 1% (10MG/ML) FOR IV START INTRADERMA ONE; +ONDANSETRON 4 MG/2 ML VIAL IVP ONE; +ONDANSETRON 4 MG/2 ML VIAL ONE; +ROPIVACAINE 5MG/ML 20ML VIAL ONE
[2020-01-21 12:26] VITALS: TEMP 96.7
--- NOTE | 2020-01-21 12:56 | P.PCN ---
Date of Procedure: 01/21/20 Procedure(s) Performed: PREOPERATIVE DIAGNOSIS: 1-Lumbar Spondylosis with Facet Arthropathy without myelopathy. 2- Lumber degenerative disc disease POSTOPERATIVE DIAGNOSIS: 1- Lumbar Spondylosis with Facet Arthropathy without myelopathy. 2- Lumber degenerative disc disease PROCEDURES : Left Radiofrequency thermocoagulation, L2 , L3 , L4 , and L5 medial branch, with fluoroscopic guidance (fluoroscopy images available at radiology department ) (to denervated left side facet joint at L3- 4, L4- 5 , L5-S1 levels ) ANESTHESIA: Moderate sedation with intravenous versed 2 mg and fentaneyl 150 mcg . EBL: Minimal PROCEDURE INDICATION: The patient with low back pain secondary to lumbar facet arthropathy who had more than 50% relief of her pain with previous diagnostic lumbar medial branch block with bupivacaine. PROCEDURE DESCRIPTION / TECHNIQUE: The patient was seen and identified in the preoperative area. Risks, benefits, complications, including but not limited to risk of infection ,bleeding , allergic reactions to the medications and no complete pain releife , and alternatives were discussed with the patient, the patient agreed to proceed with the procedure and signed the consent. IV was started. Vital signs remained stable throughout the procedure. Patient was taken to the OR and time out was completed. The patient was placed in the prone position on the procedure table. The lumber area was prepped and draped in the usual sterile fashion. . Vital signs were closely monitored during the procedure .IV sedation was used during the procedure to decrease patients anxiety. Using AP and then oblique fluoroscopy, the ``eye of the Sen dog corresponding to the connection between the superior and transverse articular processes of Left L2 , L3, L4, and L5 were identified, marked, and localized with 1 ml 0.5% ropivacaine . Subsequently, a [id number] radiofrequency cannula with a 10-mm active tip was advanced guided by fluoroscopy to each of the ``eyes of the Sen dog at Left L2 , L3, L4, and L5. Each site then underwent sensory testing at 50 Hz and 0 to 1 volt and motor testing at 2.5 Hz and 0 to 3 volt with local stimulation, but no radicular symptoms down the legs. Thereafter the Left L2, , L3 , L4 , and L5 sites underwent radiofrequency thermocoagulation at 80 degrees celsius for 90 seconds after injecting 0.5 ml of PF ropivacaine 0.5 %. then After the thermocoagulation done , 1 ml of the block solution containing Depo-Medrol 40 mg and 4 ml of ropivacaine 0.5% was injected at the Left L2 , L3 , L4 , and L5 , levels after negative aspiration of CSF and blood and with no paresthesias. Cannulas were retracted while injecting lidocaine 1% until the needle is out.. At the end of the procedure, the skin was cleansed and bandages were applied. COMPLICATIONS: No acute complications. DISPOSITION / PLANS: The patient was placed in a supine position and transferred to the recovery area in a stable condition for observation and was discharged from the recovery room after meeting discharge criteria. Home discharge instructions given to the patient by the staff. The patient was reexamined prior to discharge. The patient will schedule a follow up in the [facility] in 2-4 weeks.
[2020-01-21 13:04] VITALS: RESP 17
--- NOTE | 2020-01-21 13:11 | FL ---
EXAMINATION TYPE: FL guided pain mgmt statistic DATE OF EXAM: 01/21/2020 CLINICAL HISTORY: Low back pain. TECHNIQUE: Fluoroscopy. COMPARISON: None. FINDINGS: Fluoroscopic guidance was provided during pain relief procedure performed by Dr. Jerry . A total of 13 seconds of fluoroscopic time was utilized during the procedure and 3 spot images are acquired. Images acquired shows needle localization at several levels in the mid to lower lumbar sp ine. IMPRESSION: As Above.
[2020-01-21 13:32] VITALS: BP 121/77; PULSE 50
== END ==
LOC: ORPAIN 12:02
PROVIDERS: ATTEND Specialist
DX: M47.816 Spondylosis without myelopathy or radiculopathy, lumbar region (principal); M51.36 Other intervertebral disc degeneration, lumbar region; Z88.5 Allergy status to narcotic agent
CPT/HCPCS: 64635; 64636 ×2; J2250; J1030; J2405; J3010; J2795; 99152

== ENCOUNTER 2020-02-09 07:35 | Day surgery (SDC) | payer OTHER ==
[2020-02-05 15:29] VITALS: BMI 37.4
[~2020-02-09 07:35] MED LIST changes: -IV FLUID CONTINUATION 500 ML IV ONE; -LACTATED RINGERS 1,000 ML IV ONE; -LIDOCAINE 1% (10MG/ML) FOR IV START INTRADERMA ONE; -MIDAZOLAM 2 MG/2 ML VIAL ONE; -ONDANSETRON 4 MG/2 ML VIAL IVP ONE; -ONDANSETRON 4 MG/2 ML VIAL ONE; -ROPIVACAINE 5MG/ML 20ML VIAL ONE; -fentaNYL (PF) 50 MCG/ML 2 ML AMP ONE; -methylPREDNISolone ACETATE 40 MG/ML 1 ML VIAL ONE
[2020-02-09 07:54] VITALS: RESP 16; TEMP 97.2
[2020-02-09] MEDS ORDERED: ONDANSETRON 4 MG/2 ML VIAL ONE (07:55)
[2020-02-09] MEDS ORDERED: ONDANSETRON 4 MG/2 ML VIAL IVP ONE (08:10)
[2020-02-09] MEDS ORDERED: ROPIVACAINE 5MG/ML 20ML VIAL ONE (08:13)
[2020-02-09] MEDS ORDERED: MIDAZOLAM 2 MG/2 ML VIAL ONE (08:13)
[2020-02-09] MEDS ORDERED: TRIAMCINOLONE ACETONIDE 40 MG/ML 1 ML VIAL ONE (08:13)
[2020-02-09] MEDS ORDERED: fentaNYL (PF) 50 MCG/ML 2 ML AMP ONE (08:13)
--- NOTE | 2020-02-09 08:36 | P.PCN ---
Date of Procedure: 02/09/20 Surgeon: Sandra Jimenez Pathology: none sent Condition: stable Disposition: PACU Description of Procedure: PREOPERATIVE DIAGNOSIS: Lumbar spondylosis without myelopathy, morbid obesity POSTOPERATIVE DIAGNOSIS: Lumbar spondylosis without myelopathy,morbid obesity PROCEDURES : Right Radiofrequency thermocoagulation L3-L4, L4-L5, and L5-S1 medial branch, with fluoroscopic guidance ANESTHESIA: IV moderate conscious sedation with versed and fentanyl and local infiltration with lidocaine 1% 5 ml Physician:Sandra Jimenez MD EBL: Minimal PROCEDURE INDICATION: The patient with low back pain secondary to lumbar facet arthropathy who had more than 50% relief of her pain with previous diagnostic lumbar medial branch block with bupivacaine. PROCEDURE DESCRIPTION / TECHNIQUE: The patient was seen and identified in the preoperative area. Risks, benefits, complications, including but not limited to risk of infection ,bleeding , allergic reactions to the medications and no complete pain relief , and alternatives were discussed with the patient, the patient agreed to proceed with the procedure and signed the consent. IV was started. Vital signs remained stable throughout the procedure. Patient was taken to the OR and time out was completed. The patient was placed in the prone position on the procedure table. The lumber area was prepped and draped in the usual sterile fashion. . Vital signs were closely monitored during the procedure .IV sedation was used during the procedure to decrease patients anxiety. The target points were identified as follows: For the L5-S1 level which corre sponds to the dorsal ramus of L5 the target point was at the superior medial aspect of the sacral ala on the right side of the spine on the AP view of fluoroscopy and for the L2, L3, and L4 medial branches the target points were at the connection between the transverse process and the superior articular process of L3, L4, and L5 vertebra respectively on the right oblique view of fluoroscopy. skin was marked, and localized with 1% lidocaineat these points. Subsequently, an 18 -ib radiofrequency needles with a 10-mm curved active tips were advanced guided by fluoroscopy to each of the target points mentioned above in a superior medial direction to get the active tips as parallel as possible to the medial branches tracks. AP, oblique, and lateral views of fluoroscopy were used to verify needle tips position. Each level then underwent motor testing at 2.5 Hz and 0 to 3 volt with local stimulation, but no radicular symptoms down the legs. Thereafter radiofrequency thermocoagulation at 80 degrees celsius for 90 seconds after injecting 1 ml of PF Ropivacaine 0.5%(3 mls) with 40 mg of Kenalog. At the end of the procedure, the skin was cleansed and bandages were applied. A copy of needle placement fluoroscopy was saved on the C-arm machine. COMPLICATIONS: No acute complications. DISPOSITION / PLANS: The patient was placed in a supine position and transferred to the recovery area in a stable condition for observation and was discharged from the recovery room after meeting discharge criteria. Home discharge instructions given to the patient by the staff. The patient was reexamined prior to discharge. The patient will schedule a follow up in the clinic in 2-4 weeks.
[2020-02-09] MEDS ORDERED: IV FLUID CONTINUATION 650 ML IV ONE (08:42)
[2020-02-09 09:17] VITALS: BP 136/79; PULSE 52
--- NOTE | 2020-02-09 10:02 | FL ---
EXAMINATION TYPE: FL guided pain mgmt statistic DATE OF EXAM: 02/09/2020 FLUOROSCOPY Fluoroscopy time of 16 seconds was used during right-sided lumbar radiofrequency ablation. 4 image/s document/s the procedure.
== END 2020-02-09 09:22 | disposition home or self-care (01) ==
LOC: ORPAIN 07:35
PROVIDERS: ATTEND Anesthesiology
DX: M47.816 Spondylosis without myelopathy or radiculopathy, lumbar region (principal); E66.01 Morbid (severe) obesity due to excess calories; Z88.5 Allergy status to narcotic agent; I10 Essential (primary) hypertension; Z78.0 Asymptomatic menopausal state; Z68.37 Body mass index [BMI] 37.0-37.9, adult
CPT/HCPCS: 64635; 64636 ×2; J2250; J3301; J2405; J3010; J2795; 99152

== ENCOUNTER → 2020-04-04 | Outpatient (CLI) | payer OTHER ==
[2020-04-04 09:42] VITALS: BP 128/75; PULSE 60; RESP 16; TEMP 98.3
--- NOTE | 2020-04-04 10:11 | P.PN ---
Subjective Progress Note Date: 04/04/20 This is a follow-up visit for this 60 years old female with a chronic history of severe low back pain, she is diagnosed with lumbar degenerative disc disease and lumbar spondylosis with lumbar facet arthropathy without myelopathy, and lumbar foraminal stenosis, previously we have done radiofrequency ablation of the medial branch umber area, the patient did very well until recently, she started complaining of severe low back pain, intractable interfering with the quality of lif , also she is complaining of severe upper back pain localized between the shoulder blade area and radiated towered the thoracic spin ,the pain is constant , the low back area with radiation to the left lower extremity ,she denies any fever or night sweats she denies any motor or sensory deficits, she denies any change in the bowel movement or urination, she is currently on Neurontin 100 mg 3 times a day, he is getting prescription refill from her primary care, she denies any side effects of the medication Objective - Vital Signs Vital signs: Vital Signs Temp 98.3 F 04/04/20 09:40 Pulse 60 04/04/20 09:40 Resp 16 04/04/20 09:40 BP 128/75 04/04/20 09:40 Pulse Ox 99 04/04/20 09:40 Assessment and Plan Plan: Physical Examinations : -Constitutiona : Cooperative , not in acute distress . -HEENT : nech : supple , no Lymphadenopathy , normal thyroid size . : eyes : no ptosis , no icterus, no photophobia . - neurologic : Cranial nerve II to XII intact , no focal neurological deffecit . -psychatric : alert , oriented X 3 , appropriate affect , intact judgment and insight . -Lymphatic : no Lymphadenopathy . - musculoskeltal : Thoracic spine= total trigger point identified in the thoracic paraspinal muscles Between T5 to T9 Lumber spine moter stegnth lower extremities ,thigh and legs 5/5 Right side , 4- 5/5 Left side deep tendon reflexes : normal Knee Jerk , normal ankle Jerk lumber facet Loading Test =positive Right , positive Left Range of motion of the lumbar spine Flexion 30 degrees, extension 10 degrees strait leg raising test = positive at 45 degree bilaterally Fabere test= positive Right , and positive LT . Sever tenderness over the Sacroiliac joint on the Left sides Assessment and Plan Plan: Assessment and plan=1-lumbar spondylosis with lumbar facet arthropathy without myelopathy. 2-lumbar degenerative disc disease. 3-lumbar foraminal stenosis. Recommend to increase Neurontin dose from 100 mg 3 times a day Patient could benefit from lumbar epidural steroid injections at L4 5 or L5-S1 Done at the same time we can do a trigger point injection in the thoracic paraspinal muscles Time with Patient: Less than 30 PQRS Measure Charge Sheet Measure #130: Documentation of Current Meds in Medical Chart: Patient's medications documented in chart Measure #226: Tobacco Use: Screen & Cessation Intervention: Pt not a tobacco user Measure #111: Pneumonia Vaccination: Pneumococcal vaccine NOT administered or previously given Measure #47: Advance Care Plan: Advance care planning discussed & documented, pt chose/unable to give Measure #412: Opioid Treatment Agreement: No documentation of signed opioid treatment agreement Measure #408: Opioid Therapy Follow-up Evaluation: Patient had NO f/u eval minimum every 3 months during opioid therapy Measure #317: Preventitive Care & Scrn High Bld Press & F/U: BP documented, pt will f/u with PCP Measure #128: Body Mass Index (BMI) Screening & Follow-up: BMI documented ABOVE normal parameters - f/u documented Measure #131: Pain Assessment & Follow-up: Pain positive & plan documented, Follow-up scheduled Measure #431: Unhealthy Alcohol Use Preventative Care & Scrn: Patient not identified as an unhealthy alcohol user Time with Patient: Less than 30
== END | disposition home or self-care (01) ==
LOC: PNWHC3 08:43
PROVIDERS: ATTEND Specialist
DX: M48.061 Spinal stenosis, lumbar region without neurogenic claudication (principal); M51.36 Other intervertebral disc degeneration, lumbar region; M47.816 Spondylosis without myelopathy or radiculopathy, lumbar region; Z79.891 Long term (current) use of opiate analgesic
CPT/HCPCS: 99211

== ENCOUNTER 2020-04-28 09:50 | Day surgery (SDC) | payer OTHER ==
[2020-04-27 09:02] VITALS: BMI 32.3
[2020-04-28 10:12] VITALS: TEMP 96.8
[2020-04-28] MEDS ORDERED: LACTATED RINGERS 1,000 ML IV ONE (10:15)
[2020-04-28] MEDS ORDERED: methylPREDNISolone ACETATE 40 MG/ML 1 ML VIAL ONE (10:16)
[2020-04-28] MEDS ORDERED: IOPAMIDOL M200 10 ML VIAL ONE (10:16)
[2020-04-28] MEDS ORDERED: ROPIVACAINE 5MG/ML 20ML VIAL ONE (10:16)
[2020-04-28] MEDS ORDERED: fentaNYL (PF) 50 MCG/ML 2 ML AMP ONE (10:16)
[2020-04-28] MEDS ORDERED: MIDAZOLAM 2 MG/2 ML VIAL ONE (10:16)
--- NOTE | 2020-04-28 10:43 | P.PCN ---
Date of Procedure: 04/28/20 Description of Procedure: PREOPERATIVE DIAGNOSIS: Lumbar radiculopathy POSTOPERATIVE DIAGNOSIS: Same PROCEDURE PERFORMED: Interlaminar Epidural Steroid Injection at the L4-5 level, with a left paramedian approach under fluoroscopic guidance. Thoracic trigger point injections SURGEON: Ivan Ramirez MD ANESTHESIA: Local with 1% lidocaine 3 ml and IV sedation with Versed and fentanyl, sedation time 21 min Fluoroscopy was used for the procedure and images were saved in the radiology portion of the chart. EBL: Minimal PROCEDURE INDICATION: The patient presents with lumbar radicular symptoms unresponsive to conservative treatment. This is the [first/ second] cervical epidural steroid injection PROCEDURE DESCRIPTION / TECHNIQUE: The patient was seen and identified in the preoperative area. Risks, benefits, complications including but not limited to infections ,bleeding ,allergic reaction to the medications ,nerve damage and incomplete pain relief, and alternatives were discussed with the patient. The patient agreed to proceed with the procedure and signed the consent. IV was started, and vital signs were stable. Patient was taken to the OR and time out was completed. The patient was placed in the prone position on procedure table and a pillow was placed under the chest area. The cervical area was prepped and draped in the usual sterile fashion. Conscious sedation was used during the procedure to decrease patients anxiety. Vital signs was monitored during the entire procedure. Using anterior-posterior fluoroscopy, the [] interlaminar space was identified and the skin over this site was marked and then infiltrated with 1% lidocaine subcutaneously. Subsequently, a 20-gauge Tuohy epidural needle was inserted and advanced toward the epidural space using the loss of resistance technique and guided by AP and lateral views. The correct needle position in the epidural spac e was verified. After negative aspiration for blood and CSF and in the absence of paresthesias, Isovue 200 2 mL's was injected under live fluoroscopy with good epidural spread. After negative aspiration, a 5 mL mixture containing 2 ml PFNS, 2 mL 1%lidocaine, 40 mg depomedrol.. Needle was withdrawn intact, skin was cleansed, and bandages were applied. Then turned my attention to the thoracic paraspinal area after cleaning with chlorhexidine, I performed thoracic trigger point injections using a 25-gauge needle and injecting 1 mL of 0.5% ropivacaine at each site for a total of 4 sites. COMPLICATIONS: None DISPOSITION / PLANS: The patient was placed in a supine position and transferred to the recovery area in a stable condition for observation. There was no evidence of lower extremity motor or sensory deficit after the procedure. Patient was discharged from the recovery room after meeting discharge criteria. Home discharge instructions were given to the patient by the staff. The patient will be scheduled a repeat procedure ni 2-4 weeks.
[2020-04-28] MEDS ORDERED: IV FLUID CONTINUATION 550 ML IV ONE (10:48)
[2020-04-28 11:08] VITALS: BP 158/85; PULSE 54; RESP 14
[2020-04-28] MEDS ORDERED: ONDANSETRON 4 MG/2 ML VIAL ONE (11:33)
[2020-04-28] MEDS ORDERED: ONDANSETRON 4 MG/2 ML VIAL IVP ONE (11:34)
--- NOTE | 2020-04-28 12:23 | FL ---
Fluoroscopy HISTORY: Pain 31 seconds fluoroscopy time supplied to the referring clinician. 3 intraoperative C-arm images docum ent the procedure. See dictated report from anesthesia.
--- NOTE | 2020-05-02 12:33 | CDI ---
Date: 05.02.2020 CDS/Safety Belt Installer Name: Pau Dodson Phone: If any questions, call Anitha Renae Fire Sprinkler Designer at [phone] Patient Name: Cindy Barnard Admit Date 04.28.20 Discharge Date: 04.28.20 ATTENTION: The [facility] Coding Staff appreciate your assistance in clarifying documentation. Please respond to the clarification below the line at the bottom and electronically sign. The [facility] Coding staff will review the response and follow-up if needed. Please note: Queries are made part of the Legal Health Record. If you have any questions, please contact the Fire Sprinkler Designer. Dear Dr. Ramirez In order to code to the greatest specificity and for the greatest reimbursement I need the following information: you have documented for the trigger point injections each site for a total of 4. Please specify how many muscles were actually injected 4 different muscles or 4 sites in same muscle, etc. Thank you for your kind consideration. MTDD
--- NOTE | 2020-05-10 14:26 | CDI ---
Date: 05.10.2020 CDS/Ornamental Rail Installer Name: Pau Dodson Phone: If any questions, call Anitha Renae Medical Specialist at [phone] Patient Name: Cindy Barnard Admit Date 04.28.20 Discharge Date: 04.28.20 ATTENTION: The [facility] Coding Staff appreciate your assistance in clarifying documentation. Please respond to the clarification below the line at the bottom and electronically sign. The [facility] Coding staff will review the response and follow-up if needed. Please note: Queries are made part of the Legal Health Record. If you have any questions, please contact the Medical Specialist. Dear Dr. Ramirez In order to code to the greatest specificity and for the greatest reimbursement I need the following information: 1. You have documented for the trigger point injections each site for a total of 4. Trigger point injections are based on the number of muscles injected, regardless of the number of trigger points injected per coding clinic CPT assist October 2016, page 10. Please specify how many muscles were actually injected. 2. You have documented intralaminar epidural steroid injection at the L4-5 level under procedure performed section and you have documented cervical epidural steroid injection under procedure indication section. Please specify at what level the steroid injection was done. Thank you for your kind consideration. MTDD
== END 2020-04-28 12:05 | disposition home or self-care (01) ==
LOC: ORPAIN 09:50
PROVIDERS: ATTEND Anesthesiology
DX: M54.16 Radiculopathy, lumbar region (principal); M79.18 Myalgia, other site; Z78.0 Asymptomatic menopausal state; Z88.5 Allergy status to narcotic agent
CPT/HCPCS: 20552; 62323; J2250; J1030; J2405; J3010; Q9966; J2795; 20553; 99152

== ENCOUNTER → 2020-04-28 | Outpatient (CLI) | payer OTHER ==
--- NOTE | 2020-04-29 08:53 | MM ---
Reason for exam: screening (asymptomatic). Last mammogram was performed 1 year and 4 months ago. History: Patient is postmenopausal and is nulliparous. Physical Findings: Nurse did not find any significant physical abnormalities on exam. MG Screening Mammo w CAD Bilateral CC and MLO view(s) were taken. Prior study comparison: December 25, 2018, bilateral MG screening mammo w CAD. November 29, 2017, left breast MG work up mamm w CAD LT. There are scattered fibroglandular densities. There are benign appearing round calcifications bilaterally. There is no discrete abnormality. ASSESSMENT: Benign, BI-RAD 2 RECOMMENDATION: Routine screening mammogram of both breasts in 1 year.
== END | disposition home or self-care (01) ==
LOC: RADMAMWWP 09:32
PROVIDERS: ATTEND Family Medicine
DX: Z12.31 Encounter for screening mammogram for malignant neoplasm of breast (principal)
CPT/HCPCS: 77067

== ENCOUNTER → 2020-05-12 | Outpatient (CLI) | payer OTHER ==
[2020-05-12 10:17] LABS: Basophils % (A) 1 %; Eosinophils # (A) 0.1 k/uL (0-0.7); Eosinophils % (A) 3 %; HCT 41.3 % (34.0-46.0); HGB 13.3 gm/dL (11.4-16.0); Lymphocytes # (A) 0.9 k/uL (1.0-4.8); Lymphocytes % (A) 18 %; MCH 31.1 pg (25.0-35.0); MCHC 32.3 g/dL (31.0-37.0); Monocytes # (A) 0.2 k/uL (0-1.0); Monocytes % (A) 5 %; Neutrophils # (A) 3.7 k/uL (1.3-7.7); Neutrophils % (A) 73 %; Platelet Count 179 k/uL (150-450); RDW 14.3 % (11.5-15.5); WBC 5.1 k/uL (3.8-10.6)
--- NOTE | 2020-05-12 10:41 | XR ---
EXAMINATION TYPE: XR wrist complete LT, XR hand complete LT DATE OF EXAM: 05/12/2020 CLINICAL HISTORY: Pain. TECHNIQUE: Frontal, lateral and oblique images of the left hand and wrist are obtained. Fourth left scaphoid view. COMPARISON: Prior left hand x-ray November 20, 2019 FINDINGS: There is no acute fracture/dislocation evident in the left wrist. The joint spaces in the left wrist appear within normal limits. The overlying soft tissue appears unremarkable. Images of the left hand show no acute fracture or dislocation. There is prominent spur radial aspect of the first interphalangeal joint redemonstrated. Joint spaces are otherwise maintained. Overlying s oft tissue is unremarkable. IMPRESSION: As above.
[2020-05-12 15:06] LABS: African American GFR (CKD) 110.7 (60.0-200.0); Albumin 4.2 g/dL (3.80-4.90); Albumin/Globulin Ratio 1.91 (1.60-3.17); Anion Gap 4.7 mmol/L (4.00-12.00); BUN/Creat Ratio 21.43 Ratio (12.00-20.00); Calcium 9.3 mg/dL (8.7-10.3); Carbon Dioxide 27.3 mmol/L (21.6-31.8); Globulin 2.2 g/dL (1.6-3.3); Non-African American GFR(CKD) 95.5 (60.0-200.0); Potassium 4.5 mmol/L (3.5-5.5); Total Bilirubin 0.4 mg/dL (0.2-1.2); Total Protein 6.4 g/dL (6.2-8.2)
== END | disposition home or self-care (01) ==
LOC: LABWHC1 09:34
PROVIDERS: ATTEND Family Medicine
DX: M25.732 Osteophyte, left wrist (principal); I10 Essential (primary) hypertension
CPT/HCPCS: 36415; 80053; 82306; 85025

== ENCOUNTER 2020-05-17 10:03 | Day surgery (SDC) | payer OTHER ==
[2020-05-16 13:28] VITALS: BMI 32.3
[2020-05-17] MEDS ORDERED: LACTATED RINGERS 1,000 ML IV SCH (10:23)
[2020-05-17 10:33] VITALS: RESP 16; TEMP 96.7
[2020-05-17] MEDS ORDERED: LIDOCAINE 1% (10MG/ML) FOR IV START INTRADERMA ONE (10:40)
[2020-05-17] MEDS ORDERED: ROPIVACAINE 5MG/ML 20ML VIAL ONE (11:15)
[2020-05-17] MEDS ORDERED: MIDAZOLAM 2 MG/2 ML VIAL ONE (11:15)
[2020-05-17] MEDS ORDERED: methylPREDNISolone ACETATE 40 MG/ML 1 ML VIAL ONE (11:15)
[2020-05-17] MEDS ORDERED: IOPAMIDOL M200 10 ML VIAL ONE (11:15)
[2020-05-17] MEDS ORDERED: fentaNYL (PF) 50 MCG/ML 2 ML AMP ONE (11:15)
[2020-05-17] MEDS ORDERED: DEXAMETHASONE SOD PHOSPHATE 10 MG/ML 1 ML VIAL ONE (11:15)
--- NOTE | 2020-05-17 11:17 | P.PCN ---
Date of Procedure: 05/17/20 Description of Procedure: PREOPERATIVE DIAGNOSIS: lumbar radiculopathy POSTOPERATIVE DIAGNOSIS: Lumbar radiculopathy PROCEDURE 1. Lumbar epidural steroid injection under fluoroscopic guidance at the L5-S1 level. 2. Lumbar epidurogram. Imaging: Fluoroscopy was used, images where saved to the medical record ANESTHESIA: Local with 1% lidocaine 5 ml and 2 mg of Versed and 100 g of fentanyl EBL: Minimal PROCEDURE INDICATION: The patient with low back pain and radiculitis symptoms unresponsive to conservative treatment. Fluoroscopy was used to optimize visualization of the needle placement and to maximize safety. PROCEDURE DESCRIPTION / TECHNIQUE: The patient was seen and identified in the preoperative area. Risks, benefits, complications including but not limited to infections ,bleeding ,allergic reaction to the medications, nerve damage and incomplete pain relief , as well as alternatives to the procedure were discussed with the patient. The patient agreed to proceed with the procedure and signed the consent. IV was started, and vital signs were stable. Patient was taken to the OR and time out was completed. The patient was placed in the prone position on procedure table and a pillow was placed under the abdomen to reduce lumbar lordosis. The lumbosacral area was prepped and draped in the usual sterile fashion. Vitals were closely monitored during the procedure. Using anterior-posterior fluoroscopy, the L XXX interlaminar space was identified and the skin over this site was marked and then infiltrated with 1% lidocaine subcutaneously. Subsequently, a 20-gauge Tuohy epidural needle was inserted and advanced toward the epidural space using the Loss of resistance technique and guided by AP and lateral fluoroscopy. The correct needle position in the epidural space was verified with the injection of 1 mL of Omnipaque 180 contrast to observe an acceptable epidurogram, after negative aspiration for blood and CSF and in the absence of paresthesias. Again after negative aspiration, a 3 ml mixture containing 40mg of depomedrol and 2 ml of preservative free Normal Saline was injected and a washout of epidurogram was seen. Needle was withdrawn intact, skin was cleansed, and bandages were applied. COMPLICATIONS: None DISPOSITION / PLANS: The patient was placed in a supine position and transferred to the recovery area in a stable condition for observation. There was no evidence of lower extremity motor or sensory deficit after the procedure. Patient was discharged from the recovery room after meeting discharge criteria. Home discharge instructions were given to the patient by the staff. The patient was reexamined prior to discharge. The patient will follow up as directed.
--- NOTE | 2020-05-17 11:19 | P.PCN ---
Date of Procedure: 05/17/20 Description of Procedure: Preoperative Diagnosis: myofascial pain syndrome of thoracic and lumbar paraspinal muscles Postoperative diagnosis: Same Anesthesia: Local Surgeon: Funmilayo Ragsdale MD Indications for procedure: This is a 60-year-old patient with myofascial pain and palpable trigger points in thoracic and lumbar paraspinal muscles. The patient consents for an injection after an explanation of risks including but not limited to bleeding a nd infection, benefits, and alternatives and the patient has signed a consent form indicating understanding of all of them. Description of procedure: After informed consent was obtained the patient's painful area was sterilely prepped in the usual fashion with ChloraPrep. Thoracic and lumbar paraspinal, trapezius, and latissimus dorsi muscles trigger points were identified via palpation. Each trigger point was injected with a 25-gauge one and a half inch needle. At that point a solution consisting of 9ml of 0.5% ropivacaine with 40mg of depomedrol was distributed evenly over the trigger points. The patient's vital signs were stable afterwards and the procedure was tolerated well. Patient was discharged home with follow-up instructions.
[2020-05-17] MEDS ORDERED: IV FLUID CONTINUATION 400 ML IV ONE (11:38)
[2020-05-17 11:52] VITALS: BP 125/76; PULSE 61
--- NOTE | 2020-05-17 12:04 | FL ---
Fluoroscopy HISTORY: Pain 4 seconds fluoroscopy time supplied to the referring clinician. 1 intraoperative C-arm images docume nt the procedure. See dictated report from anesthesia.
== END 2020-05-17 12:07 | disposition home or self-care (01) ==
LOC: ORPAIN 10:03
PROVIDERS: ATTEND Hospitalist
DX: M54.16 Radiculopathy, lumbar region (principal); M79.18 Myalgia, other site; Z88.5 Allergy status to narcotic agent; Z78.0 Asymptomatic menopausal state
CPT/HCPCS: 20553; 62323; 99152

== ENCOUNTER → 2020-06-20 | Outpatient (CLI) | payer OTHER ==
[2020-06-20 08:53] VITALS: BP 133/74; PULSE 69; RESP 18; TEMP 97.7
--- NOTE | 2020-06-20 09:11 | P.PN ---
Subjective Progress Note Date: 06/20/20 This is a 60-year-old morbidly obese lady with history of chronic lower back pain with recent exacerbation. The patient had trigger point injection lately which has not helped her pain and before that she had epidural steroid injection which helped slightly. She takes Neurontin 300 mg 3 times a day. The pain affects her sleep significantly and prevents her from falling asleep. She denies any bowel or bladder dysfunction or any weight loss. Most of her pain is in the lower back area with no radiation to the lower extremities. Patient denies new-onset weakness, bowel/bladder incontinence, or any other signs or symptoms of cauda equina syndrome. There are no signs of acute intoxication, and no indications of medication diversion or overuse. In addition to above, 13-point review of systems is also negative for chest pain, shortness of breath, changes in vision, changes in hearing, new onset weakness, abdominal pain, diarrhea, extreme fatigue, malaise, fever, skin changes, homicidal or suicidal ideation, or bowel or bladder incontinence. Vital Signs: Reviewed in EMR Gen: AAOx3, NAD HEENT: PERRLA,hearing grossly normal Pulm: resp unlabored Neck: supple, trachea midline Neuro exam of the lower extremities: Decreased muscle strength due to lack of effort because of the patient's increasing pain in her lower back Straight leg raising test: Negative bilaterally 's test: Range of motion of the lumbar spine: Facet loading test: Tenderness in the paravertebral musculature: Significant tenderness in the lumbar paravertebral musculature laterally Neuro: CN II-XII grossly intact, Imaging: Reviewed in EMR/chart Assessment: Lumbar spondylosis without myelopathy Lumbar DDD Myofascial pain Acute exacerbation of her chronic lower back pain Plan: 1. Explanation: Opioid and psychological risk scores were reviewed. Diagnoses, prognoses, and multiple treatment options including but not limited to physical therapy, interventional therapies, adjuvant medical therapies, narcotic medication therapies, and surgery were discussed with the patient and all questions were answered to the patient's satisfaction. 2. Opioid agreement: Signed with the patient and the patient is warned not to use opioids while driving or before driving and not to combine opioids with benzodiazepines or alcohol. 3. Counseling: The patient was counseled extensively on SMOKING CESSATION, BODY MASS INDEX, EXERCISE. Specifically, the patient was instructed regarding the importance of smoking cessation, obesity, and exercise in the context of both chronic pain and overall health. 4. Procedures: The patient refuses any procedures at this time 5. Consultations: None 6. Investigations: None 7. Medications: Continue Neurontin 300 mg 3 times a day and I will write for the Depo-Medrol Dosepak 8. Disposition: Return to clinic in 4 weeks 9. Maps were reviewed and were appropriate. Objective - Vital Signs Vital signs: Vital Signs Temp 97.7 F 06/20/20 08:49 Pulse 69 06/20/20 08:49 Resp 18 06/20/20 08:49 BP 133/74 06/20/20 08:49 Pulse Ox 99 06/20/20 08:49
== END | disposition home or self-care (01) ==
LOC: PNWHC3 08:39
PROVIDERS: ATTEND Anesthesiology
DX: M51.36 Other intervertebral disc degeneration, lumbar region (principal); M47.816 Spondylosis without myelopathy or radiculopathy, lumbar region; M79.18 Myalgia, other site; G89.29 Other chronic pain; Z79.899 Other long term (current) drug therapy
CPT/HCPCS: 99211

== ENCOUNTER → 2020-06-23 | Outpatient (CLI) | payer OTHER ==
[2020-06-23 11:10] LABS: Basophils % (A) 0 %; Eosinophils # (A) 0.1 k/uL (0-0.7); Eosinophils % (A) 1 %; HCT 36.1 % (34.0-46.0); HGB 11.7 gm/dL (11.4-16.0); Hypochromasia Slight; Lymphocytes % (A) 10 %; MCH 31.4 pg (25.0-35.0); MCHC 32.5 g/dL (31.0-37.0); MCV 96.4 fL (80.0-100.0); Mean Platelet Volume 7.1; Monocytes # (A) 0.6 k/uL (0-1.0); Monocytes % (A) 5 %; Neutrophils # (A) 9.1 k/uL (1.3-7.7); Neutrophils % (A) 84 %; Platelet Count 233 k/uL (150-450); RBC 3.75 m/uL (3.80-5.40); RDW 14.2 % (11.5-15.5); WBC 10.8 k/uL (3.8-10.6)
[2020-06-23 17:19] LABS: African American GFR (CKD) 81.7 (60.0-200.0); Albumin 4.4 g/dL (3.80-4.90); Albumin/Globulin Ratio 2.2 (1.60-3.17); Anion Gap 10.4 mmol/L (4.00-12.00); BUN/Creat Ratio 26.67 Ratio (12.00-20.00); Calcium 9.1 mg/dL (8.7-10.3); Carbon Dioxide 26.6 mmol/L (21.6-31.8); Non-African American GFR(CKD) 70.5 (60.0-200.0); Potassium 4.2 mmol/L (3.5-5.5); Total Bilirubin 0.6 mg/dL (0.3-1.2); Total Protein 6.4 g/dL (6.2-8.2)
[2020-06-23 17:27] LABS: T4, Free (Free Thyroxine) 1.1 ng/dL (0.80-1.80)
== END | disposition home or self-care (01) ==
LOC: LABWHC1 10:14
PROVIDERS: ATTEND Family Medicine
DX: E03.9 Hypothyroidism, unspecified (principal)
CPT/HCPCS: 36415; 80053; 84439; 84443; 84481; 85025

== ENCOUNTER → 2020-06-30 | Outpatient (CLI) | payer OTHER ==
[2020-06-30 15:22] LABS: Basophils # (A) 0.03 X 10*3/uL (0.00-0.10); Basophils % (A) 0.5 %; Eosinophils # (A) 0.21 X 10*3/uL (0.04-0.35); Eosinophils % (A) 3.3 %; HCT 38.6 % (37.2-46.3); Lymphocytes # (A) 1.23 X 10*3/uL (0.90-5.00); Lymphocytes % (A) 19.5 %; MCH 30.6 pg (27.0-32.0); MCHC 31.1 g/dL (32.0-37.0); MCV 98.5 fL (80.0-97.0); Mean Platelet Volume 9.3 fL (9.5-12.2); Monocytes # (A) 0.43 X 10*3/uL (0.20-1.00); Monocytes % (A) 6.8 %; Neutrophils # (A) 4.39 X 10*3/uL (1.80-7.70); Neutrophils % (A) 69.6 %; Platelet Count 244 X 10*3/uL (140-440); RBC 3.92 X 10*6/uL (4.10-5.20); RDW 14.4 % (11.5-14.5); WBC 6.31 X 10*3/uL (4.50-10.00)
== END | disposition home or self-care (01) ==
LOC: LABWHC1 10:43
PROVIDERS: ATTEND Family Medicine
DX: I10 Essential (primary) hypertension (principal)
CPT/HCPCS: 36415; 85025

== ENCOUNTER → 2021-01-12 | Outpatient (CLI) | payer OTHER ==
[2021-01-12 15:59] LABS: Basophils # (A) 0.03 X 10*3/uL (0.00-0.10); Basophils % (A) 0.6 %; Eosinophils # (A) 0.14 X 10*3/uL (0.04-0.35); Eosinophils % (A) 2.7 %; HCT 38.6 % (37.2-46.3); HGB 12.1 g/dL (12.0-15.0); Lymphocytes # (A) 0.92 X 10*3/uL (0.90-5.00); MCH 30.2 pg (27.0-32.0); MCHC 31.3 g/dL (32.0-37.0); MCV 96.3 fL (80.0-97.0); Monocytes # (A) 0.38 X 10*3/uL (0.20-1.00); Monocytes % (A) 7.5 %; Neutrophils # (A) 3.62 X 10*3/uL (1.80-7.70); Platelet Count 200 X 10*3/uL (140-440); RBC 4.01 X 10*6/uL (4.10-5.20); RDW 14.3 % (11.5-14.5)
[2021-01-12 17:52] LABS: African American GFR (CKD) 94.2 (60.0-200.0); Albumin/Globulin Ratio 1.6 (1.60-3.17); Anion Gap 6.9 mmol/L (4.00-12.00); Calcium 8.8 mg/dL (8.7-10.3); Carbon Dioxide 25.1 mmol/L (21.6-31.8); Chol/HDL Ratio 3.88; Globulin 2.5 g/dL (1.6-3.3); LDL Cholesterol,Calculated 81.8 mg/dL (0.0-131.0); Non-African American GFR(CKD) 81.3 (60.0-200.0); Potassium 4.4 mmol/L (3.5-5.5); Total Bilirubin 0.4 mg/dL (0.2-1.2); Total Protein 6.5 g/dL (6.2-8.2); VLDL Calculation 42.2 mg/dL (5.00-40.00)
== END | disposition home or self-care (01) ==
LOC: LABWHC1 10:48
PROVIDERS: ATTEND Family Medicine
DX: E78.5 Hyperlipidemia, unspecified (principal); E03.9 Hypothyroidism, unspecified; E55.9 Vitamin D deficiency, unspecified
CPT/HCPCS: 36415; 80053; 80061; 82306; 84439; 84443; 84481; 85025

== ENCOUNTER → 2021-06-08 | Outpatient (CLI) | payer OTHER ==
--- NOTE | 2021-06-12 11:45 | MM ---
Reason for exam: screening (asymptomatic). Last mammogram was performed 1 year and 1 month ago. History: Patient is postmenopausal. Physical Findings: A clinical breast exam by your physician is recommended on an annual basis and results should be correlated with mammographic findings. MG Screening Mammo w CAD Bilateral CC and MLO view(s) were taken. Prior study comparison: April 28, 2020, bilateral MG screening mammo w CAD. December 25, 2018, bilateral MG screening mammo w CAD. There are scattered fibroglandular densities. Benign oil cyst calcifications on the left. No significant changes when compared with prior studies. ASSESSMENT: Negative, BI-RAD 1 RECOMMENDATION: Routine screening mammogram of both breasts in 1 year.
== END | disposition home or self-care (01) ==
LOC: RADMAMWWP 11:01
PROVIDERS: ATTEND Family Medicine
DX: Z12.31 Encounter for screening mammogram for malignant neoplasm of breast (principal); Z78.0 Asymptomatic menopausal state
CPT/HCPCS: 77067

== ENCOUNTER → 2021-06-14 | Outpatient (CLI) | payer OTHER ==
--- NOTE | 2021-06-14 15:46 | P.PN ---
Subjective Progress Note Date: 06/14/21 Principal diagnosis: A 61 yr old male/ female with a history of severe and chronic low back pain secondary to lumbar degenerative disc diseases and lumbar spondylosis with facet arthropathy presents today for pain management. Pain is localized to the lower levels of the lumbar spine, the pain level is 2 /10 in intensity, of a dull/ achy in character but sometimes sharp/ shooting towards the right leg by evening. 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 Also states that her right foot cramps when sitting reclined at bedtime and she has to shake her leg to relieve the spasms. Pain is alleviated with medications, heat, physical therapy, massage, rest and stretching. Patient is currently on Gabapentin 300mg from Dr Moya Patient denies any side effects of the medication(s), denies excessive dr owsiness or sleepiness, denies suicidal ideation and reports that the current pain medication is helping to control the pain and improve activities of daily living. Patient denies any motor or sensory deficits. Patient denies any fever or night sweats, denies any change in the bowel movements or urination. Physical Examination: -Constitutional: Cooperative. Not in acute distress . -HEENT: Neck is supple. No lymphadenopathy. No thyromegaly. Normal thyroid size. Eyes: No ptosis , no icterus, no photophobia. ENT: No auditory deficits. Normal oropharynx. No Thrush. - Respiratory: Chest clear to auscultations bilaterally. No wheezing. No rhonchi. - Cardiovascular: Regular rate and rhythm. S1 / S2 , no S3 , no S4. - Gastrointestinal: Abdomen soft no tenderness. Bowel sounds positive in all four quadrants. No organomegaly. - Genitourinary: Deferred. - Neurologic: Cranial nerve II to XII intact. No focal neurological deficits. - Psychatric: Alert & oriented x 3. Matching mood & appropriate affect. Judgment and insight intact. - Lymphatic: No Lymphadenopathy. - Musculoskeletal: Cervical spine: Muscle bulk/ tone/ strength in the bilateral upper extremities normal. Facet loading test cervical area positive. Lumbar spine: Motor bulk/ tone/ strength lower extremities , thigh and legs : 5/5 Deep tendon reflexes : Normal Knee Jerk. Normal Ankle Jerk . Lumbar Facet Loading Test positive at bilateral L4-L5, L5-S1 Straight Leg Raise: positive at <30 degrees right side/ left side Treva test: positive right side / left side Gaenslen's test positive right side greater than the left Range of motion: Flexion of the lumbar spine <90 degrees Range of motion: Extension of the lumbar spine <20 degrees Moderate tenderness over the Sacroiliac joint: right side / left side Assessment and plan: Chronic low back pain secondary to lumbar degenerative disc disease , lumbar spondylosis with facet arthropathy without myelopathy Recommendation of LESI of the L5-S1 Discussed may need a 2nd and/ or 3rd procedure for adequate pain relief May need to alternate with Medial Branch Blocks/ Facet Blocks for a dequate pain relief depending on pt's response to LESI Denies use of aspirin, motrin or blood thinners Continue all medications as directed All patient questions answered MAPS reviewed and it was appropriate. I have spent 31 minutes on patient care today. Dr Jerry was available by phone for the evaluation of this patient. The time was used to review the medical records including relevant urine studies and Prescription history (MAPs), review of the available imaging, evaluation and examination of the patient, coordination of care with the medical staff and if applicable referring physicians, as well as creation of the medical record PQRS Measure Charge Sheet PQRS Narrative: Smoking Status Never smoker Pain Intensity [None] 0 Scale Used Numeric (1 - 10) Hx Alcohol Use (MH) No Home Medications: Ambulatory Orders Levothyroxine Sodium [Synthroid] 125 mcg PO QAM 12/15/13 lisinopriL [Zestril] 10 mg PO QAM 09/29/14 Atorvastatin [Lipitor] 20 mg PO HS 09/28/15 Ascorbic Acid [Vitamin C] 500 mg PO QAM 03/07/16 Ferrous Sulfate [Feosol] 325 mg PO DAILY 06/04/17 Latanoprost Ophth [Xalatan 0.005%] 1 drops BOTH EYES HS 07/05/17 Loratadine [Claritin] 10 mg PO DAILY 12/30/19 Omeprazole [PriLOSEC] 20 mg PO [id number]-[id number] 12/30/19 Gabapentin 300 mg PO TID PRN 04/27/20
[2021-06-14 16:15] VITALS: BP 136/63; PULSE 59; RESP 18; TEMP 97.9
== END ==
LOC: PNWHC3 13:35
PROVIDERS: ATTEND Physician Assistant Medical
DX: G89.29 Other chronic pain (principal); M51.36 Other intervertebral disc degeneration, lumbar region; M47.816 Spondylosis without myelopathy or radiculopathy, lumbar region; Z88.5 Allergy status to narcotic agent
CPT/HCPCS: 99211

== ENCOUNTER 2021-06-29 09:24 | Day surgery (SDC) | payer OTHER ==
[2021-06-26 12:16] VITALS: BMI 32.3
[2021-06-29 10:09] VITALS: TEMP 97
[2021-06-29] MEDS ORDERED: methylPREDNISolone ACETATE 40 MG/ML 1 ML VIAL ONE (10:17)
[2021-06-29] MEDS ORDERED: IOPAMIDOL M200 10 ML VIAL ONE (10:17)
--- NOTE | 2021-06-29 10:29 | P.PCN ---
Date of Procedure: 06/29/21 Procedure(s) Performed: PREOPERATIVE DIAGNOSIS: 1- Lumbar Degenerative Disc Diseases 2-Lumbar spondylosis with Facet arthropathy without myelopathy 3-lumbar radiculopathy. POSTOPERATIVE DIAGNOSIS: Same as preop diagnosis. PROCEDURE 1. Lumbar epidural steroid injection under fluoroscopic guidance at the L5-S1 level. (Fluoroscopy imaging was available in radiology department) 2. Lumbar epidurogram. ANESTHESIA: Local with 1% lidocaine 3 ml only. EBL: Minimal PROCEDURE INDICATION: The patient with low back pain and radiculitis symptoms unresponsive to conservative treatment. Fluoroscopy was used to optimize visualization of the needle placement and to maximize safety. PROCEDURE DESCRIPTION / TECHNIQUE: The patient was seen and identified in the preoperative area. Risks, benefits, complications including but not limited to infections ,bleeding ,allergic reacti on to the medications ,nerve damage and not complete pain releife , and alternatives were discussed with the patient. The patient agreed to proceed with the procedure and signed the consent. IV was started, and vital signs were stable. Patient was taken to the OR and time out was completed. The patient was placed in the prone position on procedure table and a pillow was placed under the abdomen to reduce lumbar lordosis. The lumbosacral area was prepped and draped in the usual sterile fashion.ere closely monitored during the procedure. Vital signs was monitered during the entire procedure. Using anterior-posterior fluoroscopy, the L5-S1 interlaminar space was identified and the skin over this site was marked and then infiltrated with 1% lidocaine subcutaneously. Subsequently, a 20-gauge Tuohy epidural needle was inserted and advanced toward the epidural space using the ``Loss of resistance technique and guided by AP and lateral fluoroscopy. The correct needle position in the epidural space was verified with the injection of 2 mL of the water soluble contrast dye Isovue 200 contrast and observing an excellent epidurogram with the epidural spread of the dye, after negative aspiration for blood and CSF and in the absence of paresthesias. Again after negative aspiration, a 6 ml mixture containing 80 mg of Depo-medrol , and 2 ml of preservative free Normal Saline, and 2 ml of preservative free lidocaine 1% solution was injected and a washout of epidurogram was seen. Needle was withdrawn intact, skin was cleansed, and bandages were applied. COMPLICATIONS: None DISPOSITION / PLANS: The patient was placed in a supine position and transferred to the recovery area in a stable condition for observation. There was no evidence of lower extremity motor or sensory deficit after the procedure. Patient was discharged from the recovery room after meeting discharge criteria. Home discharge instructions were given to the patient by the staff. The patient was reexamined prior to discharge. The patient will schedule a follow up in the clinic in 2-4 weeks.
--- NOTE | 2021-06-29 10:45 | FL ---
EXAMINATION TYPE: FL guided pain mgmt statistic DATE OF EXAM: 06/29/2021 FLUOROSCOPY Fluoroscopy time of 2 seconds was used during lumbar epidural steroid injection. 1 image/s document/ s the procedure.
[2021-06-29 10:46] VITALS: BP 125/75; PULSE 59; RESP 16
== END 2021-06-29 10:53 | disposition home or self-care (01) ==
LOC: ORPAIN 09:24
PROVIDERS: ATTEND Specialist
DX: M51.16 Intervertebral disc disorders with radiculopathy, lumbar region (principal); M47.26 Other spondylosis with radiculopathy, lumbar region; Z88.5 Allergy status to narcotic agent
CPT/HCPCS: 62323; J1030; Q9966

== ENCOUNTER → 2021-07-06 | Outpatient (CLI) | payer OTHER ==
[2021-07-06 18:23] LABS: Basophils # (A) 0.03 X 10*3/uL (0.00-0.10); Basophils % (A) 0.4 %; Eosinophils # (A) 0.17 X 10*3/uL (0.04-0.35); Eosinophils % (A) 2.2 %; HCT 39.5 % (37.2-46.3); HGB 12.2 g/dL (12.0-15.0); Immature Grans, Automated 0.4 %; Lymphocytes # (A) 1.56 X 10*3/uL (0.90-5.00); Lymphocytes % (A) 20.4 %; MCH 29.7 pg (27.0-32.0); MCHC 30.9 g/dL (32.0-37.0); MCV 96.1 fL (80.0-97.0); Mean Platelet Volume 9.7 fL (9.5-12.2); Monocytes % (A) 5.2 %; NRBC Per 100 WBC 0 /100 WBCS (0.0-0.0); Neutrophils # (A) 5.47 X 10*3/uL (1.80-7.70); Neutrophils % (A) 71.4 %; Platelet Count 208 X 10*3/uL (140-440); RBC 4.11 X 10*6/uL (4.10-5.20); RDW 14.6 % (11.5-14.5); WBC 7.66 X 10*3/uL (4.50-10.00)
[2021-07-06 18:45] LABS: African American GFR (CKD) 93.5 (60.0-200.0); Albumin 4.1 g/dL (3.8-4.9); Albumin/Globulin Ratio 1.32 (1.60-3.17); Anion Gap 10.5 mmol/L (10.00-18.00); BUN/Creat Ratio 21.38 Ratio (12.00-20.00); Blood Urea Nitrogen 17.1 mg/dL (9.0-27.0); Calcium 9.2 mg/dL (8.7-10.3); Carbon Dioxide 24.5 mmol/L (20.0-27.5); Globulin 3.1 g/dL (1.6-3.3); Non-African American GFR(CKD) 80.7 (60.0-200.0); Potassium 4.4 mmol/L (3.5-5.5); T4, Free (Free Thyroxine) 1.32 ng/dL (0.800-1.800); Total Bilirubin 0.2 mg/dL (0.30-1.20); Total Protein 7.2 g/dL (6.2-8.2)
== END | disposition home or self-care (01) ==
LOC: LABWHC1 12:39
PROVIDERS: ATTEND Family Medicine
DX: I10 Essential (primary) hypertension (principal); E03.9 Hypothyroidism, unspecified
CPT/HCPCS: 36415; 80053; 84439; 84443; 84481; 85025

== ENCOUNTER 2021-08-01 12:02 | Day surgery (SDC) | payer OTHER ==
[2021-07-31 14:01] VITALS: BMI 36.3
[2021-08-01] MEDS ORDERED: LACTATED RINGERS 1,000 ML IV SCH (13:05)
[2021-08-01] MEDS ORDERED: LIDOCAINE 1% (10MG/ML) FOR IV START INTRADERMA PRN (13:05)
[2021-08-01 13:15] VITALS: TEMP 97.8
[2021-08-01] MEDS ORDERED: TRIAMCINOLONE ACETONIDE 40 MG/ML 1 ML VIAL ONE (13:46)
[2021-08-01] MEDS ORDERED: IOPAMIDOL M200 10 ML VIAL ONE (13:46)
--- NOTE | 2021-08-01 14:13 | P.PCN ---
Date of Procedure: 08/01/21 Description of Procedure: Description of Procedure: PREOPERATIVE DIAGNOSIS: lumbar radiculopathy POSTOPERATIVE DIAGNOSIS: Lumbar radiculopathy PROCEDURE 1. Lumbar epidural steroid injection under fluoroscopic guidance at the L5-S1 level. 2. Lumbar epidurogram. Imaging: Fluoroscopy was used, images where saved to the medical record ANESTHESIA: Local with 5ml 1% lidocaine EBL: Minimal PROCEDURE INDICATION: The patient with low back pain and radiculitis symptoms unresponsive to conservative treatment. Fluoroscopy was used to optimize visualization of the needle placement and to maximize safety. PROCEDURE DESCRIPTION / TECHNIQUE: The patient was seen and identified in the preoperative area. Risks, benefits, complications including but not limited to infections ,bleeding ,allergic reaction to the medications, nerve damage and incomplete pain relief , as well as alternatives to the procedure were discussed with the patient. The patient agreed to proceed with the procedure and signed the consent. IV was started, and vital signs were stable. Patient was taken to the OR and time out was completed. The patient was placed in the prone position on procedure table and a pillow was placed under the abdomen to reduce lumbar lordosis. The lumbosacral area was prepped and draped in the usual sterile fashion. Vitals were closely monitored during the procedure. Using anterior-posterior fluoroscopy, the L5-S1 interlaminar space was identified and the skin over this site was marked and then infiltrated with 1% lidocaine subcutaneously. Subsequently, a 20-gauge Tuohy epidural needle was inserted and advanced toward the epidural space using the Loss of resistance technique and guided by AP and lateral fluoroscopy. Access was difficult from the right and then attempted on the left of the spinous process. The correct needle position in the epidural space was verified with the injection of 2 mL of Omnipaque 180 contrast to observe an acceptable epidurogram, after negative aspiration for blood and CSF and in the absence of paresthesias. Again after negative aspiration, a 3 ml mixture containing 40mg of Kenalog and 2 ml of preservative free Normal Saline was injected and a washout of epidurogram was seen. Needle was withdrawn intact, skin was cleansed, and bandages were applied. COMPLICATIONS: None DISPOSITION / PLANS: The patient was placed in a supine position and transferred to the recovery area in a stable condition for observation. There was no evidence of lower extremity motor or sensory deficit after the procedure. Patient was discharged from the recovery room after meeting discharge criteria. Home discharge instructions were given to the patient by the staff. The patient was reexamined prior to discharge. The patient will follow up as directed.
[2021-08-01 14:18] VITALS: BP 176/84; PULSE 77; RESP 18
--- NOTE | 2021-08-01 15:13 | FL ---
Fluoroscopy HISTORY: Pain 12 seconds fluoroscopy time supplied to the referring clinician. 2 intraoperative C-arm images docum ent the procedure. See dictated report from anesthesia.
== END 2021-08-01 14:32 | disposition home or self-care (01) ==
LOC: ORPAIN 12:02
PROVIDERS: ATTEND Anesthesiology
DX: M54.16 Radiculopathy, lumbar region (principal)
CPT/HCPCS: 62323; J3301; Q9966

== ENCOUNTER 2021-08-24 12:15 | Day surgery (SDC) | payer OTHER ==
[2021-08-22 09:09] VITALS: BMI 36.3
[2021-08-24 12:38] VITALS: TEMP 97.9
[2021-08-24] MEDS ORDERED: LACTATED RINGERS 1,000 ML IV ONE (12:38)
[2021-08-24] MEDS ORDERED: MIDAZOLAM 2 MG/2 ML VIAL ONE (13:07)
[2021-08-24] MEDS ORDERED: PROPOFOL 10 MG/ML 20 ML VIAL IV ONE (13:07)
[2021-08-24] MEDS ORDERED: fentaNYL (PF) 50 MCG/ML 2 ML AMP ONE (13:07)
[2021-08-24] MEDS ORDERED: LIDOCAINE 1% INJ 10MG/ML (20 ML MDV) ONE (13:07)
--- NOTE | 2021-08-24 13:30 | P.OP ---
Date of Procedure: 08/24/21 Preoperative Diagnosis: GERD Screening Postoperative Diagnosis: Duodenitis Normal appearing colon Procedure(s) Performed: EGD with biopsy and colonoscopy Anesthesia: MAC Surgeon: Ed Lopez Condition: stable Disposition: same day Description of Procedure: Patient is brought to the Endo suite placed in left lateral decubitus position underwent sedation per department of anesthesia timeout performed correct patient correct procedure correct site was verified endoscope was passed through the oropharynx down the esophagus with ease and direct visualization passed to the stomach and the first and second portion of the duodenum was slowly withdrawn being sure to visualize all concepcion on the way out there was some signs of chronic duodenitis and biopsies taken. Scope was withdrawn to the stomach and retroflexed and no gross abnormalities are noted no significant hiatal hernia was noted all concepcion and body of the stomach were inspected as the scope was slowly withdrawn at the GE junction biopsies taken to rule out Cui's and the scope was slowly withdrawn through the rest the esophagus and no gross abnormalities are noted. Patient tolerated this well patient was turned and rectal exam was performed no gross abnormalities are noted scope was passed from the rectum to the cecum with ease and slowly withdrawn make sure to visualize all concepcion of the colon on the way out there is no gross abnormalities noted patient tolerated the procedure well there are no apparent complications need a repeat screening colonoscopy in 10 years.
[2021-08-24 13:34] VITALS: RESP 16
[2021-08-24 13:49] VITALS: BP 146/80; PULSE 68
[2021-08-24] MEDS ORDERED: ONDANSETRON 4 MG/2 ML VIAL ONE (13:58)
[2021-08-24] MEDS ORDERED: ONDANSETRON 4 MG/2 ML VIAL IVP ONE (14:00)
== END 2021-08-24 14:26 | disposition home or self-care (01) ==
LOC: ORWHC2ENDO 12:15
PROVIDERS: ATTEND Student in an Organized Health Care Education/Training Program
DX: Z12.11 Encounter for screening for malignant neoplasm of colon (principal); K29.80 Duodenitis without bleeding; K21.9 Gastro-esophageal reflux disease without esophagitis; M19.90 Unspecified osteoarthritis, unspecified site; I10 Essential (primary) hypertension; E78.00 Pure hypercholesterolemia, unspecified; E03.9 Hypothyroidism, unspecified; Z96.653 Presence of artificial knee joint, bilateral; Z82.49 Family history of ischemic heart disease and other diseases of the circulatory system; Z79.899 Other long term (current) drug therapy; Z79.890 Hormone replacement therapy; Z80.9 Family history of malignant neoplasm, unspecified; R63.4 Abnormal weight loss; Z88.5 Allergy status to narcotic agent
CPT/HCPCS: 88305; 43239; J2250; J2405; J2001; J3010; J2704; G0121

== ENCOUNTER → 2021-09-21 | Outpatient (CLI) | payer OTHER ==
--- NOTE | 2021-09-21 12:09 | P.PN ---
Subjective Progress Note Date: 09/21/21 Principal diagnosis: A 61 yr old female with a history of severe and chronic low back pain secondary to lumbar degenerative disc diseases and lumbar spondylosis with facet arthropathy presents today for evaluation status post LESI L5-S1. She states she experienced 0% pain relief status post procedure. Pain level is currently at 2 out of 10 in intensity, dull, achy in the lower aspects of her lumbar spine where it meets her tailbone with radiation of pain left and right of midline to the paraspinal muscles. Pain escalates as high as 10 out of 10 in intensity by evening. Pain is provoked by twisting, bending, lifting and crouching. Pain is alleviated very minimally with medications, injections, physical therapy years ago, repositioning and rest. Interventional pain procedures completed include right RFA L25; LESI L4-L5, L5- S1; thoracic TPIs. Patient is currently on Neurontin Patient denies any side effects of the medication(s), denies excessive drowsiness or sleepiness, denies suicidal ideation and reports that the current pain medication is helping to control the pain and improve activities of daily living. Patient denies any motor or sensory deficits. Patient denies any fever or night sweats, denies any change in the bowel movements or urination. Physical Examination: -Constitutional: Cooperative. Not in acute distress . -HEENT: Neck is supple. No lymphadenopathy. No thyromegaly. Normal thyroid size. Eyes: No ptosis , no icterus, no photophobia. ENT: No auditory deficits. Normal oropharynx. No Thrush. - Respiratory: Chest clear to auscultations bilaterally. No wheezing. No rhonchi. - Cardiovascular: Regular rate and rhythm. S1 / S2 , no S3 , no S4. - Gastrointestinal: Abdomen soft no tenderness. Bowel sounds positive in all four quadrants. No organomegaly. - Genitourinary: Deferred. - Neurologic: Cranial nerve II to XII intact. No focal neurological deficits. - Psychatric: Alert & oriented x 3. Matching mood & appropriate affect. Judgment and insight intact. - Lymphatic: No Lymphadenopathy. - Musculoskeletal: Cervical spine: Muscle bulk/ tone/ strength in the bilateral upper extremities normal. Facet loading test cervical area positive. Lumbar spine: Motor bulk/ tone/ strength lower extremities , thigh and legs : 5/5 Deep tendon reflexes : Normal Knee Jerk. Normal Ankle Jerk . Vertebral body tenderness to palpation over L3, L4, L5 Lumbar Facet Loading Test positive Straight Leg Raise: positive at 30 degrees right side/ left side Gaenslen's Test positive Sacral spine : Severe tenderness over the Sacroiliac joint: right side / left side Range of motion: Flexion of the lumbar spine <60 degrees Range of motion: Extension of the lumbar spine <20 degrees Gaenslen's Test positive Treva test: positive right side / left side Assessment and plan: Chronic low back pain secondary to lumbar degenerative disc disease , lumbar spondylosis with facet arthropathy without myelopathy Patient is discharged interested in additional procedures at this time as they provide a short-term to minimal pain relief. We will prescribe topical diclofenac gel. Use, side effects and adverse reactions and medication discussed and patient verbalized understanding. Patient may also follow up with an orthopedic surgeon, Dr. Brody Bishop, for lowering other treatment options. All patient questions answered MAPS reviewed and it was appropriate. Prescription for Diclofenac gel w 1 refill. I have spent 31 minutes on patient care today. Dr Jerry was available by phone for the evaluation of this patient. The time was used to review the medical records including relevant urine studies and Prescription history (MAPs), review of the available imaging, evaluation and examination of the patient, coordination of care with the medical staff and if applicable referring physicians, as well as creation of the medical record Objective - Vital Signs Vital signs: Intake & Output 09/20/21 09/21/21 09/21/21 18:59 06:59 18:59 Weight 90.718 kg PQRS Measure Charge Sheet Mode of Arrival: Ambulatory - Pain Location Lower Back Non-Pharmacological Interventions: Heat, Ice, Inactivity Pharmacological Interventions: PRN Medication PQRS Narrative: Smoking Status Never smoker Pain Intensity [Lower Back] 2 Scale Used Numeric (1 - 10) Hx Alcohol Use (MH) No Home Medications: Ambulatory Orders Levothyroxine Sodium [Synthroid] 125 mcg PO QAM 12/15/13 lisinopriL [Zestril] 10 mg PO QAM 09/29/14 Atorvastatin [Lipitor] 20 mg PO HS 09/28/15 Ascorbic Acid [Vitamin C] 500 mg PO QAM 03/07/16 Ferrous Sulfate [Feosol] 325 mg PO DAILY 06/04/17 Latanoprost Ophth [Xalatan 0.005%] 1 drops BOTH EYES HS 07/05/17 Loratadine [Claritin] 10 mg PO DAILY 12/30/19 Omeprazole [PriLOSEC] 20 mg PO [id number]-[id number] 12/30/19 Gabapentin 300 mg PO TID 04/27/20
[2021-09-21 12:27] VITALS: BP 110/67; PULSE 70; RESP 14; TEMP 97.7
== END ==
LOC: PNWHC3 10:57
PROVIDERS: ATTEND Specialist
DX: M51.36 Other intervertebral disc degeneration, lumbar region (principal); M47.816 Spondylosis without myelopathy or radiculopathy, lumbar region; G89.29 Other chronic pain; Z88.5 Allergy status to narcotic agent
CPT/HCPCS: 99211

== ENCOUNTER → 2021-09-28 | Outpatient (CLI) | payer OTHER ==
--- NOTE | 2021-09-28 13:17 | XR ---
EXAMINATION TYPE: XR chest 2V DATE OF EXAM: 09/28/2021 COMPARISON: NONE HISTORY: Cough and congestion for one month. TECHNIQUE: Frontal and lateral views of the chest are obtained. FINDINGS: There is increased opacity or markings in the left lower lobe with peribronchial wall thic kening. No pleural effusion or pneumothorax seen bilaterally. The cardiac silhouette size is within n ormal limits. There is S-shaped scoliosis. IMPRESSION: Increased left lower lobe opacity. Correlate for reactive airway disease possibly from a viral bronchiolitis.
== END | disposition home or self-care (01) ==
LOC: RADXRMAIN 12:41
PROVIDERS: ATTEND Family Medicine
DX: R91.8 Other nonspecific abnormal finding of lung field (principal)
CPT/HCPCS: 71046

== ENCOUNTER → 2021-10-05 | Outpatient (CLI) | payer OTHER ==
--- NOTE | 2021-10-05 13:23 | XR ---
EXAMINATION TYPE: XR chest 2V DATE OF EXAM: 10/05/2021 COMPARISON: 09/28/2021 HISTORY: 61-year-old female J2 0.9, acute bronchitis TECHNIQUE: Frontal and lateral views FINDINGS: Heart upper limits of normal in size. Aorta and vasculature within normal limits. Streaky perihilar p eribronchial opacity. No ashley consolidation or pleural effusion. IMPRESSION: Central interstitial and peribronchial density suggesting bronchitis or chronic asthma. No focal infi ltrate seen.
== END | disposition home or self-care (01) ==
LOC: RADXRMAIN 09:16
PROVIDERS: ATTEND Family Medicine
DX: J98.4 Other disorders of lung (principal)
CPT/HCPCS: 71046

== ENCOUNTER → 2021-11-09 | Outpatient (CLI) | payer OTHER ==
--- NOTE | 2021-11-12 08:56 | MR ---
EXAMINATION TYPE: MR lumbar spine wo con DATE OF EXAM: 11/09/2021 COMPARISON: None HISTORY: 61-year-old female lumbar region spondylosis with radiculopathy, Low back pain for 5 years, that radiates into left and right buttocks. TECHNIQUE: Multiplanar, multisequence images of the lumbar spine were acquired without IV contrast. FINDINGS: Vertebral body heights are preserved. No suspicious bone marrow replacement. Conus medullaris is normal. There is hypertrophic facet arthropathy greatest in the mid and lower lumbar spine with corresponding ligamentum flavum thickening. Degenerative grade 1 retrolisthesis L4-L5. Remaining alignment is maintained. There is moderate multilevel degenerative disc disease with desiccated, narrowed, and bulging discs. At T12-L1, mild disc bulge. Large right lateral disc osteophyte complex. No significant canal or fora yossi stenosis. At L1-L2, diffuse disc bulge. Right anterolateral disc osteophyte complex. Small superimposed right p aracentral protrusion. No significant spinal canal stenosis. Changes result in minimal inferior neura l foraminal narrowing on the right. At L2-L3, minimal disc bulge. Large right lateral disc osteophyte complex. This comes in close proxim ity to the extraforaminal right L2 nerve root without clear nerve root abutment. No significant spina l canal stenosis. No significant neuroforaminal stenosis. At L3-L4, there is diffuse disc bulge impressing on the ventral thecal sac. No significant spinal can al stenosis. There is bilateral facet arthropathy. Changes result in mild bilateral neuroforaminal st enosis on the right, a right lateral disc osteophyte complex appears to abut the intraforaminal right L3 nerve root. At L4-L5, hypertrophic facet arthropathy and ligamentum flavum thickening. Mild disc bulge. There is mild overall spinal canal stenosis from the grade 1 anterolisthesis. Moderate left and mild right trevor roforaminal stenosis. However, disc osteophyte complex abuts the intraforaminal left greater than rig ht L4 nerve roots. Refer to axial image 7. At L5-S1, marked hypertrophic facet arthropathy. No spinal canal stenosis. There is moderate bilatera l neuroforaminal stenosis. Disc osteophyte complex appears to abut the intraforaminal L5 nerve roots on both sides. No prevertebral or paravertebral soft tissue abnormality. IMPRESSION: 1. Moderate multilevel degenerative disc disease. Hypertrophic facet arthropathy mid to lower lumbar spine along with ligamentum flavum thickening. 2. Degenerative grade 1 anterolisthesis L4-L5. Mild overall narrowing of the spinal canal at this lev el. No significant spinal canal stenosis at any level. 3. Moderate bilateral neuroforaminal stenoses at L5-S1. Disc osteophyte complex appears to abut the b ilateral intraforaminal L5 nerve roots at this level. 4. At L4-L5, moderate left and mild right neuroforaminal stenosis. However, additional disc osteophyt e complex at this level appears to abut the intraforaminal L4 nerve roots, left more so than the righ t. 5. A right lateral disc osteophyte complex at L3-L4 appears to abut the intraforaminal right L3 nerve root.
== END | disposition home or self-care (01) ==
LOC: RADMRIMAIN 10:44
PROVIDERS: ATTEND Nurse Practitioner Family
DX: M47.26 Other spondylosis with radiculopathy, lumbar region (principal); M43.16 Spondylolisthesis, lumbar region; M99.73 Connective tissue and disc stenosis of intervertebral foramina of lumbar region
CPT/HCPCS: 72148

== ENCOUNTER → 2021-12-04 | Outpatient (CLI) | payer OTHER ==
[2021-12-04 18:42] LABS: Basophils # (A) 0.03 X 10*3/uL (0.00-0.10); Basophils % (A) 0.6 %; Eosinophils # (A) 0.17 X 10*3/uL (0.04-0.35); Eosinophils % (A) 3.3 %; HCT 40.6 % (37.2-46.3); HGB 12.3 g/dL (12.0-15.0); Immature Grans, Automated 0.4 %; Lymphocytes # (A) 0.99 X 10*3/uL (0.90-5.00); MCH 28.7 pg (27.0-32.0); MCHC 30.3 g/dL (32.0-37.0); MCV 94.9 fL (80.0-97.0); Mean Platelet Volume 10.2 fL (9.5-12.2); Monocytes # (A) 0.29 X 10*3/uL (0.20-1.00); Monocytes % (A) 5.6 %; NRBC Per 100 WBC 0 /100 WBCS (0.0-0.0); Neutrophils % (A) 71.1 %; Platelet Count 224 X 10*3/uL (140-440); RBC 4.28 X 10*6/uL (4.10-5.20); RDW 14.6 % (11.5-14.5)
[2021-12-04 19:07] LABS: ALT 20 U/L (8-44); AST 20 U/L (13-35); African American GFR (CKD) 109.9 (60.0-200.0); Albumin 4.1 g/dL (3.8-4.9); Albumin/Globulin Ratio 1.49 (1.60-3.17); Alkaline Phosphatase 79 U/L (41-126); BUN/Creat Ratio 15.86 Ratio (12.00-20.00); Blood Urea Nitrogen 11.1 mg/dL (9.0-27.0); Calcium 9.5 mg/dL (8.7-10.3); Chloride 106 mmol/L (96-109); Chol/HDL Ratio 4.06 Ratio; Globulin 2.8 g/dL (1.6-3.3); Glucose 93 mg/dL (70-110); LDL Cholesterol,Calculated 119.9 mg/dL (0.0-131.0); Non-African American GFR(CKD) 94.8 (60.0-200.0); Potassium 4.4 mmol/L (3.5-5.5); Sodium 144 mmol/L (135-145); Total Protein 6.9 g/dL (6.2-8.2)
== END | disposition home or self-care (01) ==
LOC: LABWHC1 12:05
PROVIDERS: ATTEND Family Medicine
DX: E03.9 Hypothyroidism, unspecified (principal); E78.5 Hyperlipidemia, unspecified; E55.9 Vitamin D deficiency, unspecified
CPT/HCPCS: 36415; 80053; 80061; 82306; 84439; 84443; 84481; 85025

== ENCOUNTER → 2022-04-02 | Outpatient (CLI) | payer OTHER ==
[2022-04-02 18:32] LABS: Basophils # (A) 0.04 X 10*3/uL (0.00-0.10); Basophils % (A) 0.8 %; Eosinophils % (A) 3.9 %; HCT 38.1 % (37.2-46.3); Immature Grans, Automated 0.2 %; Lymphocytes # (A) 1.14 X 10*3/uL (0.90-5.00); Lymphocytes % (A) 22.3 %; MCH 29.3 pg (27.0-32.0); MCHC 31.5 g/dL (32.0-37.0); MCV 92.9 fL (80.0-97.0); Mean Platelet Volume 9.9 fL (9.5-12.2); Monocytes # (A) 0.39 X 10*3/uL (0.20-1.00); Monocytes % (A) 7.6 %; NRBC Per 100 WBC 0 /100 WBCS (0.0-0.0); Neutrophils # (A) 3.33 X 10*3/uL (1.80-7.70); Neutrophils % (A) 65.2 %; Platelet Count 208 X 10*3/uL (140-440); RDW 15.1 % (11.5-14.5); WBC 5.11 X 10*3/uL (4.50-10.00)
[2022-04-02 19:01] LABS: ALT 22 U/L (8-44); AST 19 U/L (13-35); African American GFR (CKD) 102.2 (60.0-200.0); Albumin/Globulin Ratio 1.44 (1.60-3.17); Alkaline Phosphatase 81 U/L (41-126); BUN/Creat Ratio 15.83 Ratio (12.00-20.00); Blood Urea Nitrogen 11.7 mg/dL (9.0-27.0); Calcium 9.6 mg/dL (8.7-10.3); Carbon Dioxide 26.1 mmol/L (20.0-27.5); Chloride 106 mmol/L (96-109); Chol/HDL Ratio 3.68 Ratio; Globulin 2.8 g/dL (1.6-3.3); Glucose 86 mg/dL (70-110); LDL Cholesterol,Calculated 108.8 mg/dL (0.0-131.0); Non-African American GFR(CKD) 88.2 (60.0-200.0); Potassium 4.4 mmol/L (3.5-5.5); Sodium 142 mmol/L (135-145); Total Protein 6.8 g/dL (6.2-8.2)
== END | disposition home or self-care (01) ==
LOC: LABWHC1 11:46
PROVIDERS: ATTEND Family Medicine
DX: Z00.00 Encounter for general adult medical examination without abnormal findings (principal); E55.9 Vitamin D deficiency, unspecified; E03.9 Hypothyroidism, unspecified
CPT/HCPCS: 36415; 80053; 80061; 82306; 84439; 84443; 84481; 85025

== ENCOUNTER → 2022-08-10 | Outpatient (CLI) | payer OTHER ==
--- NOTE | 2022-08-13 18:50 | MM ---
Reason for Exam: Screening (asymptomatic). Last mammogram was performed 1 year(s) and 2 month(s) ago. Patient History: Menarche at age 17. First Full-Term at age 20. Postmenopausal. Risk Values: Geovanna 5 year model risk: 0.9%. NCI Lifetime model risk: 4.9%. Prior Study Comparison: 12/25/2018 Bilateral Screening Mammogram, [facility]. 04/28/2020 Bilateral Screening Mammogram, [facility]. 06/08/2021 Bilateral Screening Mammogram, [facility]. Tissue Density: There are scattered fibroglandular densities. Findings: Analyzed By CAD. There is no suspicious group of microcalcifications or new suspicious mass in either breast. Overall Assessment: Benign, BI-RAD 2 Management: Screening Mammogram of both breasts in 1 year. 1. Patient should continue monthly self breast exams. 2. A clinical breast exam by your physician is recommended on an annual basis. 3. This exam should not preclude additional follow-up of suspicious palpable abnormalities. Electronically signed and approved by: Christen Leija M.D. Radiologist
== END | disposition home or self-care (01) ==
LOC: RADMAMWWP 13:43
PROVIDERS: ATTEND Family Medicine
DX: Z12.31 Encounter for screening mammogram for malignant neoplasm of breast (principal); Z78.0 Asymptomatic menopausal state
CPT/HCPCS: 77067

== ENCOUNTER → 2023-01-07 | Outpatient (CLI) | payer OTHER ==
--- NOTE | 2023-01-07 18:06 | CT ---
EXAMINATION TYPE: CT lumbar spine wo con CT DLP: 1536 mGycm, Automated exposure control for dose reduction was used. DATE OF EXAM: 01/07/2023 9:22 AM COMPARISON: MRI lumbar spine 10/05/2021, CT abdomen pelvis 09/28/2016. CLINICAL INDICATION:Female, 62 years old with history of M43.16 SPONDYLOLISTHESIS, LUMBAR REGION; PHH , lower back pain TECHNIQUE: Multiple axial images were obtained from the midportion of T11 through the sacroiliac marvin nts. Soft tissue and bone windows in coronal and sagittal planes were obtained and reviewed. FINDINGS: Alignment: There are 5 lumbar type vertebral bodies. Grade 1 anterolisthesis of L4 on L5 without evid ence of pars defect. Bone: No evidence of fracture is identified. Multilevel degenerative disc disease with disc space na rrowing, endplate sclerosis, vacuum disc disease, and anterior osteophytosis. Discs: T12-L1: No spinal canal or neural foraminal stenosis is identified. T12-L1: No significant central canal stenosis. The neural foramen are patent bilaterally. L1-L2: Broad-based disc bulge with posterior osteophyte and facet arthropathy resulting in mild centr al canal stenosis. The neural foramina are patent bilaterally. L2-L3: Broad-based disc bulge without significant central canal stenosis. Bilateral facet arthropathy . No significant neural foraminal stenosis. L3-L4: Broad-based disc bulge with posterior osteophyte and facet arthropathy resulting in mild centr al canal stenosis. Mild bilateral neural foraminal stenosis. L4-L5: Grade 1 anterolisthesis with uncovering of the disc. Broad-based disc bulge with bilateral se lalo facet arthropathy resulting in moderate central canal stenosis. Moderate bilateral neural forami nal stenosis. L5-S1: Broad-based disc bulge without significant effacement of the anterior thecal. Bilateral facet arthropathy. Moderate bilateral neural foraminal stenosis. Other: Atherosclerotic calcification of the aorta. IMPRESSION: 1. No evidence of fracture of the lumbar spine. 2. Moderate multilevel degenerative disc disease and facet arthropathy as described above. This is mo st pronounced at L4-L5 with moderate central canal stenosis. 3. Grade 1 anterolisthesis of L4 on L5 without evidence of pars defect.
== END | disposition home or self-care (01) ==
LOC: RADCTMAIN 09:02
PROVIDERS: ATTEND Orthopaedic Surgery
DX: M43.16 Spondylolisthesis, lumbar region (principal); M51.36 Other intervertebral disc degeneration, lumbar region; M47.816 Spondylosis without myelopathy or radiculopathy, lumbar region; M99.73 Connective tissue and disc stenosis of intervertebral foramina of lumbar region
CPT/HCPCS: 72131

== ENCOUNTER 2023-04-08 05:45 | Inpatient (IN) | payer OTHER ==
[~2023-04-08 05:45] MED LIST changes: +ACETAMINOPHEN TAB 500 MG TAB PO PRN; +GABAPENTIN 300 MG CAP PO PRN; -LACTATED RINGERS 1,000 ML IV SCH; +ONDANSETRON 4 MG/2 ML VIAL IVP PRN; +TRANEXAMIC 1,000 MG/100ML-NACL 1,000 MG in SALINE 1 100ML.BAG IVPB PRN
[2023-04-08] MEDS ORDERED: fentaNYL (PF) 50 MCG/ML 2 ML AMP IV PRN (06:15)
[2023-04-08] MEDS ORDERED: LIDOCAINE 1% (10MG/ML) FOR IV START INTRADERMA PRN (06:15)
--- NOTE | 2023-04-08 06:50 | P.HPOR ---
History of Present Illness H&P Date: 04/03/23 Chief Complaint: Low back pain, LE weakness, Neurogenic claudication .D:Date: 04/03/23 : 04:48pm .T:Title: *[facility]... COPY... Date of :64 R14 Allergies: Age: 63 year Height: 5'6" Weight: 200 lbs BP:/ BMI: 32.28 kg/m2 Occupation: Homecare VAS: 2 CHIEF COMPLAINT: Re-check lumbar pain DOI: Chronic DOS: None Duration of current treatment regiment:> 1 year HISTORY: Xrays No new xrays taken in office today. Last set of x-rays on 04/02/22 in office. Trauma or injury No Work-Related No Pain description Aching, burning, sharp, & throbbing Location Posterior, diffuse Patient notes that their pain radiates to right lower extremity Activity Modification Yes Hand Dominance Right TREATMENTS COMPLETED: 6 weeks of PT completed? Month and Year of last PT date? 2021 Yes How many sessions? 12 Did it help? No Physician directed home exercise completed? Yes Patient has trialed the physician directed home exercise program without relief of their symptoms. Medications Yes;List: Gabapentin Alternative interventions Chiropractic:No Massage therapy:Yes, without relief. R.I.C.E:Yes; heat/ice without relief Brace:No Injections Yes How many? > 6 Did they help?No RFA:yes, with no relief SUBJECTIVE: Ms. Barnard returns to the office today for a pre-operative appointment preceding her L2-Pelvis decompression and fusion. The patient continues to report diffuse low back pain with a burning, aching, and stabbing quality. The patient also notes continued radiating pain down into the bilateral lower extremities associated with numbness and tingling, worse upon the left compared to the right. The patient notes that her symptoms are exacerbated by all activity, but mostly with prolonged standing, walking, and sit to stand. The patient is having severe sleep disturbances at this time. The patient has trialed conservative treatment measures in the form of physical therapy, occupational therapy, lumbar epidural steroid injections, a radiofrequency ablation, at home exercises, at home heat/ice therapies, and medication management, all with no significant or sustained relief. The patient states that her symptoms have started to very significantly affect her overall quality of life. The patient is currently taking Gabapentin for her pain and symptoms. Otherwise the patient denies any f/c/sob/cp, no incision concerns, no bladder or bowel retention/incontinence, no perineal numbness/tingling, and ambulates independently today. HPI: Ms. Barnard returns to the office on 01/30/23 for a recheck of her low back pain and to change her surgical date to sooner if possible. The patient notes continued diffuse low back pain with a burning and stabbing quality. The patient also notes radiating pain down into the bilateral lower extremities associated with numbness and tingling, worse upon the left compared to the right. The patient notes that her symptoms are exacerbated by all activity, but mostly with prolonged standing, walking, and sit to stand. The patient is having severe sleep disturbances at this time. The patient has trialed conservative treatment measures in the form of physical therapy, occupational therapy, lumbar epidural steroid injections, a radiofrequency ablation, at home exercises, at home heat/ice therapies, and medication management, all with no significant or sustained relief. The patient states that her symptoms have started to very significantly affect her overall quality of life. The patient is currently taking Gabapentin for her pain and symptoms. Otherwise the patient denies any f/c/sob/cp, no incision concerns, no bladder or bowel retention/incontinence, no perineal numbness/tingling, and ambulates independently today. Ms. Barnard returns to the office on 11/14/22 for re-evaluation of her low back pain. The patient notes continued diffuse low back pain with a burning and stabbing quality. The patient also notes radiating pain down into the bilateral lower extremities, worse upon the left compared to the right. The patient reports experiencing increased pain throughout the bilateral foot. The patient notes that her symptoms are exacerbated by all activity, but mostly with prolonged standing or walking. The patient is having severe sleep disturbances at this time. The patient states that her low back pain has worsened since she was last evaluated in office on 04/02/2022. The patient has trialed conservative treatment measures in the form of physical therapy, occupational therapy, lumbar epidural steroid injections, a radiofrequency ablation, at home exercises, at home heat/ice therapies, and medication management, all with no significant or sustained relief. The patient states that her symptoms have started to very significantly affect her overall quality of life. The patient is currently taking Gabapentin with no relief of her symptoms. Otherwise the patient denies any f/c/sob/cp, no incision concerns, no bladder or bowel retention/incontinence, no perineal numbness/tingling, and ambulates independently today. Ms. Barnard returns to the office on 04/02/2022 for a recheck of their low back pain. Patient reports increased lumbar pain with no new known injury or trauma to indicate an exact onset of their symptoms. In addition to their lumbar pain, they do report that it radiates into the right upper extremity , associatedwith numbness and tingling through the leg diffusely. Overall the patient has seen a progressive increase in symptoms since their onset. Ms. Barnard symptoms are exacerbated with prolonged standing and ambulation, due to this they notes that it is increasingly difficult for Ms. Barnard to complete many of their daily tasks. Patient is having moderate sleep disturbances as well due to their ongoing pain and associated symptoms. Regarding treatments, the patient has previously trialed all above mentioned treatment modalities without lasting relief. Patient denies trialing any other modalities at this time. Otherwise the patient denies any f/c/sob/cp, no incision concerns, no bladder or bowel retention/incontinence, no perineal numbness/tingling, and ambulates independently. Ms. Barnard was last seen on 12/21/2021 regarding her MRI of her L spine as well as follow up on her L spine. She continues to have low back pain as well as RLE pain that radiates to her toes. She states she also has right thigh pain that is worse at night as well as her leg pain at night. She has had multiple di fferent injections in the past as well as RFA which used to help her but the most recent round of each has not helped her sx and they have gotten worse. 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 She states no bowel or bladder issues, no perineal numbness tingling. She takes gabapentin 100 mg currently but nothing else for pain or for her arthritis. She has done PT in the past without improvement. Ms. Barnard previously presented to the office on 11/23/2021 for reevaluation of chronic lumbar pain and MRI results of the lumbar spine performed on 11/09/2021. Patient states that the pain in her lower back has not changed and is continuing to radiate into bilateral lower extremities. Patient states the pain continues to increase with prolonged sitting, standing, walking, or performing stairs. At the last visit patient was prescribed a Medrol Dosepak, patient states she did not have any relief. Patient denies any loss of bowel or bladder or any perineal numbness or tingling. She is ambulatory independently. Ms. Barnard was previously seen on 10/19/2021 in the office for chronic lumbar pain for approximately 5 years. Patient states that pain in her lower back is radiating into bilateral lower extremities. She describes the pain as stabbing and throbbing. Pain is increased with prolonged sitting, standing, walking, or walking up and down stairs. patient has attempted physical therapy with no improvement, multiple HAYDE injections, and RFA with no relief. She is currently taking gabapentin. Patient is ambulatory independently. She is very emotional throughout exam, stating she has just had enough dealing with this pain. The patients' past social, medical, family, surgical history, as well as review of systems, have been reviewed. Please refer to the Neurosurgery History and Physical form that has been scanned in to our electronic medical record system. 14 points review of systems completed and as stated in HPI, all other systems reviewed are negative. Social History:Reviewed, see appropriate section of the chart for details. [id number] History: Smoking: none P3 Alcohol: none P3 Family History: Reviewed, see appropriate section of the chart for details. P2 Past Medical History:Reviewed, see appropriate section of the chart for details. [id number] Medications: Rx: atorvastatin 20 mg tablet Ref: 0 Rx: ferrous sulfate 325 mg (65 mg iron) tablet Ref: 0 Rx: latanoprost 0.005 % eye drops Ref: 0 Rx: levothyroxine 125 mcg tablet Ref: 0 Rx: lisinopriL 10 mg tablet Ref: 0 Rx: loratadine 10 mg tablet Ref: 0 Rx: omeprazole 20 mg capsule,delayed release Ref: 0 Rx: Vitamin D2 Ref: 0 Rx: meloxicam 15 mg tablet Ref: 0 Rx: Lyrica 150 mg capsule Ref: 0 PHYSICAL EXAMINATION: General:Awake, alert, appropriate for age, in no acute distress. HEENT:No unusual neck masses around region of lateral neck triangle, thyroid, supraclavicular groove Heart:Regular rate and rhythm, normal S1, S2 and no murmur/gallop. Lungs:Clear to auscultation bilaterally with no use of accessory muscles. Extremities:Skin warm and dry without acute lesions, coloration, temperature, skin intact, no tenderness or erythema Integument: Hairy patches: ABSENT Dorsal skin dimples:ABSENT Cafe au lait spots:ABSENT Palpation: Please see Pain drawing on Intake sheet for further detail. Midline spinal tenderness:No E6 Cervical Tenderness: No E6 Paralumbar tenderness:No E6 Parathoracic tenderness:No E6 Buttocks tenderness:No E6 Sacroiliac Tenderness:No POSTURAL and MUSCULO-SKELETAL EVALUATION: Coronal Balance:NEUTRAL Recumbent testing:Patient isable to lay flat on back Sagittal Balance:NEUTRAL Shoulder Profile:LEVEL Pelvic Girdle:LEVEL Neck ROM:UNRESTRICTED Lumbar ROM:RESTRICTED Shoulder ROM:Symmetrical Hip ROM:Symmetrical Knee ROM:Symmetrical Hands:Normal appearance, symmetrical Feet:Normal appearance, Symmetrical VASCULAR STATUS : LEFTRIGHT Wrist Pulses INTACT INTACT Pedal Pulses (Dors. pedis & post.tibialis) INTACT INTACT Color NORMAL NORMAL Edema Absent Absent NEUROLOGIC EXAMINATION: Mental Status:Awake and alert, fully oriented, with normal attention, concentration and memory, and fluent, appropriate speech. Cranial Nerves: I: Olfactory not tested. II: Visual acuity normal, no visual field deficit noted with confrontation. III,IV: Normal pupillary reflexes & intact extraocular movements without nystagmus. V,: Intact symmetrical facial sensation. VII: Intact symmetrical facial motor movement VIII: Hearing intact. IX,X: Intact gag, swallow, & normal voice. XI: Sternocleidomastoid, trapezius function intact. XII: Tongue midline with normal movements. L'hermitte's Sign: Negative / absent Spurling'Sign:Absent bilaterally. Cubital percussion test:Absent bilaterally. Mcbride-Tinel sign - Carpal region:Absent bilaterally. Straight Leg Raising:Absent bilaterally. Crossed straight leg raise:negative O8 MOTOR EXAM (0-5/5, N/T Muscle appearance: Symmetrical, without signs of atrophy or dystrophy UPPER EXTREMITY RIGHT LEFT Shoulder Abduction 5/5 5/5 Biceps 5/5 5/5 Triceps 5/5 5/5 Wrist Extension 5/5 5/5 Hand Intrinsics 5/5 5/5 Pin Inserter Regulator 5/5 5/5 LOWER EXTREMITY RIGHT LEFT Hip Flexion 5/5 5/5 Knee Extension 5/5 5/5 Knee Flexion 5/5 5/5 Dorsiflexion 5/5 4/5 Plantarflexion 4+/5 4/5 EHL 4+/5 4/5 FHL 4+/5 4/5 Toe heel walk / heel-toe walk intact while maintaining satisfactory balance? yes Squatting/straightening w/o assistance to a min of 60 degree knee flexion? yes Single leg stance:intact REFLEXES(0-4/2, NT)Upper ExtremityLower Extremity Right 2 2 Left 2 2 Pathological Reflexes RIGHT LEFT Mcbride's Absent Absent Clonus Absent Absent Babinski Absent Absent Sensory system (0-4, N/T) Test type RU AYESHA RL LL Joint-Position 2 2 2 2 Vibration 2 2 2 2 Pain & LT sense 2 2 2 2 Dermatomal Deficit: None None L3-L4, L5 None Gait and Functional Evaluation: Ambulatory aids: Independent Romberg's test:Intact bilaterally Steady Gait RADIOGR APHS: XRay Lumbar Multiview (AP, Lateral, Flexion, Extension) with AP pelvis; 5 views taken at [facility] on 10/19/21 of Lumbar Spine and Pelvis: - Reviewed with the patient today. Severe spondylosis of L3-S1 with L4-5 grade I spondylolisthesis with 4 mm translation on Flexion film. There is severe facet arthrosis as well as near autofusion of L2-3 noted anteriorly. There is fairly well maintained LL with so me flattening and measure around 55 deg with PI around 49. There is retrolisthesis of L3-4 and L5-S1. There is disc height loss L4-5 due to slip and L3-4 due to spondylosis. No fracture. No lesions noted. AP pelvis shows congruent level pelvis no fracture. [facility] of Lumbar S pine: - Reviewed with the patient today. This is reviewed with the patient and demonstrates again Grade I spondylolisthesis L4-5 with marginal reduction down to around 2.3 mm on this sup ine film (4mm on F/E films). There is severe spondylosis from L3-S1 with disc desiccation, height loss, bulging, facet hypertrophy, ligamental hypertrophy as well as facet bogginess all contributing to central stenosis that is moderate to severe L3-S1 as well as foraminal stenosis that is moderate L3-4 and L5-S1 but more severe L4-5 due to spondylolisthesis. There are no fractures noted. Overall alignment maintained. No fracture. No lesion. ASSESSMENT: 1. L2-S1 spondylosis with stenosis 2. Grade I spondylolisthesis of L4 on L5 3. Neurogenic claudication 4. Lower extremity paresthesias PLAN: Based on my findings I suggest the following course of action: - I sent a prescription for Medrol dosepak to patient's pharmacy today -I discussed treatment options with the patient, including operative and non- operative options, and they have elected to proceed with the following surgical procedure: L2-pelvis decompression and fusion The indications, risks, benefits, and alternatives to surgery were discussed wit h the patient and family at length. Specifically (but not limited to) the risks of infection, stiffness, recurrence of symptoms, need for revision surgery, local numbness, neurovascular injury, and blood clots were discussed. The patient's questions were answered. We discussed different surgical options and plans including but not limited to decompression alone, fusion alone, decompression and fusion different fusion approaches and decompression approaches. Ultimately, they have decided to have an open posterior L2-Pelvis decompression and fusion. - I have ordered a CT scan of the lumbar spine, which the patient should complete prior to surgery. - Ambulate daily. - Take medications as directed. - Ice and rest for pain and swelling control. Spine Surgery Risk Review Ms. Barnard is presenting for evaluation of low back pain. It was my pleasure to have seen and examined Ms. Barnard. In our visit today we have had a chance to go over subjective complaints, physical examination findings and treatments including the natural course history without intervention and various interventional options. The patients imaging demonstrates: XRay Lumbar Multiview (AP, Lateral, Flexion, Extension) with AP pelvis; 5 views taken at [facility] on 10/19/21 of Lumbar Spine and Pelvis: - Reviewed with the patient today. Severe spondylosis of L3-S1 with L4-5 grade I spondylolisthesis with 4 mm translation on Flexion film. There is severe facet arthrosis as well as near autofusion of L2-3 noted anteriorly. There is fairly well maintained LL with some flattening and measure around 55 deg with PI around 49. There is retrolisthesis of L3-4 and L5-S1. There is disc height loss L4-5 due to slip and L3-4 due to spondylosis. No fracture. No lesions noted. AP pelvis shows congruent level pelvis no fracture. MRI scancompleted [facility] from11/09/2021 of Lumbar Spine: - Reviewed with the patient today. This is reviewed with the patient and demonstrates again Grade I spondylolisthesis L4-5 with marginal reduction down to around 2.3 mm on this supine film (4mm on F/E films).There is severe spondylosis from L3-S1 with disc desiccation, height loss, bulging, facet hypertrophy, ligamental hypertrophy as well as facet bogginess all contributing to central stenosis that is moderate to severe L3-S1 as well as foraminal stenosis that is moderate L3-4 and L5-S1 but more severe L4-5 due to spondylolisthesis.There are no fractures noted.Overall alignment maintained.No fracture. No lesion. On physical exam, Ms. Barnard demonstrates: The patient reports experiencing continued diffuse low back pain with a burning and stabbing quality. The patient also notes radiating pain down into the bilateral lower extremities, worse upon the left compared to the right. The patient reports experiencing increased pain throughout the bilateral foot. The patient notes that her symptoms are exacerbated by all activity, but mostly with prolonged standing or walking. The patient is having severe sleep disturbances at this time. The patient states that her low back pain has worsened since she was last evaluated in office on 04/02/2022. The patient states that her symptoms have started to very significantly affect her overall quality of life. I have explained to the patient that as their condition progresses it will cause further neurological deficits and eventual paralysis. Based on the patients imaging, physical exam, and the rapid progression and disabling nature of their symptoms, at this time I recommend surgery in the form of a: L2-pelvis decompression and fusion. I discussed the risk and benefits of this procedure at length with Ms. Barnard. The patient agreed to considered pursuing the procedure above mentioned. Prior to surgery, she should follow up with her PCP (Cardio, ID, IM etc) for clearance. Questions were invited and answered, and the patient wishes to proceed as outlined below. Currently, I am recommendin.L2-pelvis decompression and fusion. 2.Follow up with PCP for surgical clearance. 3.Review of surgical risks and benefits as well as an educational packet on the proposed surgical procedure. Risks: All surgical procedures come with inherent risks, including those related to positioning, anesthesia, intraoperative findings, and postoperative complications. It is important to understand that surgery does not come with any guarantee of a successful outcome as complications and adverse events are always possible. The patient was given a handout in office today discussing the surgical procedure and risks associated with the intervention, both of which were discussed with the patient. These risks include but are not limited to the following: * Experiencing same, different or even worse symptoms in back, neck, arms, or legs compared to before surgery. Requiring further surgery or other forms of treatment presently or at some time in the future at same or other levels of the intended spine surgery. On an extreme but fortunately relatively rare basis severe complication such as blindness, stroke, heart attack, temporary and/or permanent nerve injury, paralysis, coma, or may occur, sometimes without known explanation. Surgical complications may include but are not limited to risk of infecti on, fluid accumulation in the surgical dissection site, including a seroma or hematoma, that requires additional surgery, wound drainage, bleeding, new numbness or weakness, vision changes/loss, spinal fluid leakage, non-healing and/or infected incision, headaches, difficulty or inability to swallow, hoarseness, hemopneumothorax, pneumothorax, impotence, retrograde ejaculation, vaginal dryness; injury to nerves, spinal cord, blood vessels, lymphatics or other vital organs (i.e., bowel injury, injury to the great vessels); heterotopic bone formation; complications related to the hardware such as screws, rods, cages including misplaced hardware, device failure, instrumentation at the wrong spine level, hardware fracture/breakage, or hardware loosening; vertebral failure of the spinal column above or below the newly placed hardware; retained surgical instrumentations or devices and the need for further surgery. * Medical risks of the planned spine surgery include but are not limited to generalized Infections to the whole body or local areas outside of the surgical site (sepsis), heart attack, bleeding, anaphylaxis, meningitis, seizure, epilepsy, hearing loss, burn alcala, laceration of the head or other areas of the body, bruising, hypersensitivity of the skin, bladder over distension; allergic reaction; shoulder injury related to positioning; fat, blood and air clots to other areas of the body like heart, lungs, brain; failure of internal organs such as lungs, kidneys, liver and excessive bleeding. If blood transfusions are necessary, note that transfusions may cause intolerance reactions such as anaphylaxis or other complex reactions. Despite best efforts, the results of spine surgery might not heal in terms of bone, soft tissues such as skin, fascia, ligaments, and joints. Additionally, in order to achieve best possible results, spine surgery may be carried out beyond the initially planned levels and involve decompression, fusion including insertion of hardware at levels other than the original intended area of surgical interest change some portions of the procedure in order to ensure the best possible outcomes. With spine surgery and spinal fusion, there are different off label uses of instrumentation (devices, implants and hardware) as well as biological substances (bone morphogenic proteins, demineralized bone matrix) as well as using extra bone from allograft sources (i.e. cadaver bone) or autograft (iliac crest bone, ribs, or the spine itself). The patient has been given information about these practices and their inherent risks and benefits. [facility] is an educational center that serves as a training facility for neurosurgical and orthopedic HOSPICE ADMINISTRATOR and Nursing students. Physician assistants are medically trained surgical providers who function in the outpatient, inpatient, and operating room setting under the direct supervision of the attending surgeon. [facility] has multiple operating rooms with single and overlapping rooms running daily. They currently function under the required guidelines as produced by the [facility] Finance Committee with regards to the overlapping rooms and will continue to comply with changes to this policy as they occur. The requirements include and are complied with as follows: (1) the critical portions of the overlapping rooms will not occur at the same time, (2) the attending physician will be physically present during the critical portions of the procedure and immediately available during the entire case, and (3) a back-up attending is designated should the primary attending not be immediately available. The patient has had a chance to review all the listed information, has been given print outs detailing this information, and has had all his/her questions answered to their satisfaction. It was my pleasure to have seen and examined Ms. Barnard. In our visit today we have had a chance to go over my understanding of our patient's current condition, the natural course history without intervention and various interventional options. Questions were invited and answered, and the patient wishes to proceed as outlined above. I have seen and examined the patient for 25 minutes and we have spent more than 50% of the time in repeat and detailed counseling about the patient's condition, its natural course history with out and as much as can be predicted with surgery and re-review of various surgical treatment options. In conclusion, Ms. Barnard requested we proceed with the above suggested surgery and are willing to accept risks and limitations of the suggested surgery as nature of the disease process and our best attempts at treatment for the condition. Thank you again for allowing us to be part of your patient's care. Please don't hesitate to contact me if you have any further questions. Signed and authenticated by: Follow-up: DEL Post procedure 1month 6wks 3 months 6 months 1 year Patient Education: (Informational booklet, instructions, etc) given at today's appointment: DEL Yes .ED:Patient Education: Y Medications Reviewed: YES In our visit today Ms. Barnard and I have had a chance to go over my understanding of the patient's current condition, the natural course history without intervention and various interventional options. Questions were invited and answered, and the patient wishes to proceed as outlined above. I will be sure to keep you updated afterMs. Barnard returns here for further follow-up. Thank you again for your referral. Please do not hesitate to contact me if you have any further questions. Signed and authenticated by: RENATO Bishop DO [facility] [address] [place] [id number] This message is confidential, intended only for the named recipient(s) and may contain information that is privileged or exempt from disclosure under applicable law. If you are not the intended recipient(s), you are notified that the dissemination, distribution or copying of this information is strictly prohibited. If you received this message in error, please notify the sender then delete this message. Patient verbalizes understanding of the information discussed. The above note was initiated by Zach Pollard, physician recording nutrition services assistant for Dr. Brody Bishop. This note has been reviewed by Dr. Bishop, who has made his personal changes and impressions for this document. CC: Carlos A Moya M.D. Past Medical History Past Medical History: Eye Disorder, GERD/Reflux, GI Bleed, Hyperlipidemia, Hypertension, Osteoarthritis (OA), Skin Disorder, Thyroid Disorder Additional Past Medical History / Comment(s): Chronic lower back pain, Rosacea, Glaucoma, hx bleeding ulcers. History of Any Multi-Drug Resistant Organisms: None Reported Past Surgical History: Joint Replacement, Orthopedic Surgery, Uterine Ablation Additional Past Surgical History / Comment(s): Right knee arthroscopy, partial right knee replacement,lftl total knee replacements, bilateral cataracts removed, PAIN PROCEDURES. Past Anesthesia/Blood Transfusion Reactions: Previous Problems w/ Anesthesia, Motion Sickness, Postoperative Nausea & Vomiting (PONV) Additional Past Anesthesia/Blood Transfusion Reaction / Comment(s): Difficulty waking up. no blood tx hx Smoking Status: Never smoker - Past Family History Sister(s) Family Medical History: Cancer Additional Family Medical History / Comment(s): CANCER OF LIP, 2nd sister had skin cancer. Father Family Medical History: Cancer Additional Family Medical History / Comment(s): Colon Cancer. Mother Family Medical History: Cancer Medications and Allergies Home Medications Medication Instructions Recorded Confirmed Type Levothyroxine Sodium [Synthroid] 125 mcg PO QAM 12/15/13 04/08/23 History lisinopriL [Zestril] 10 mg PO QAM 09/29/14 04/08/23 History Atorvastatin [Lipitor] 20 mg PO HS 09/28/15 04/08/23 History Ascorbic Acid [Vitamin C] 500 mg PO QAM 03/07/16 04/08/23 History Ferrous Sulfate [Feosol] 325 mg PO DAILY 06/04/17 04/08/23 History Latanoprost Ophth [Xalatan 0.005%] 1 drops BOTH EYES HS 07/05/17 04/08/23 History Loratadine [Claritin] 10 mg PO DAILY 12/30/19 04/08/23 History Omeprazole [PriLOSEC] 20 mg PO AC-BRKFST 12/30/19 04/08/23 History Gabapentin 300 mg PO TID 04/27/20 04/08/23 History Allergies Allergy/AdvReac Type Severity Reaction Status Date / Time codeine Allergy Vomiting Verified 04/08/23 06:36 Physical Examination Osteopathic Statement: *. No significant issues noted on an osteopathic structural exam other than those noted in the History and Physical/Consult.
[2023-04-08] MEDS: LACTATED RINGERS 1,000 ML IV SCH (07:15)
[2023-04-08] MEDS ORDERED: ROCURONIUM 10 MG/ML (5 ML VIAL) IV ONE (07:45)
[2023-04-08] MEDS ORDERED: KETAMINE HCL IN 0.9 % NACL 50 MG/5 ML SYRINGE ONE (07:45)
[2023-04-08] MEDS ORDERED: HYDROmorphone (PF) 1 MG/ML ONE (07:45)
[2023-04-08] MEDS ORDERED: PROPOFOL 10 MG/ML 20 ML VIAL IV ONE (07:45)
[2023-04-08] MEDS ORDERED: TRANEXAMIC 1,000 MG/100ML-NACL PREMIX BAG ONE (07:45)
[2023-04-08] MEDS ORDERED: ONDANSETRON 4 MG/2 ML VIAL ONE (07:45)
[2023-04-08] MEDS ORDERED: SUCCINYLCHOLINE CHLORIDE 200 MG/10 ML VIAL IV ONE (07:45)
[2023-04-08] MEDS ORDERED: LIDOCAINE 1% INJ 10MG/ML (20 ML MDV) ONE (07:45)
[2023-04-08] MEDS ORDERED: ePHEDrine 50 MG/ML 1 ML VIAL ONE (07:45)
[2023-04-08] MEDS ORDERED: MIDAZOLAM 2 MG/2 ML VIAL ONE (07:45)
[2023-04-08] MEDS ORDERED: fentaNYL (PF) 50 MCG/ML 2 ML AMP ONE (07:45)
[2023-04-08] MEDS ORDERED: NEOSTIGMINE 1 MG/ML 10 ML VIAL ONE (07:45)
[2023-04-08] MEDS ORDERED: THROMBIN (BOVINE) 5,000 UNIT VIAL TOPICAL ONE (08:00)
[2023-04-08] MEDS ORDERED: LACTATED RINGERS 1,000 ML IV ONE ×3 (08:00→12:19)
[2023-04-08] MEDS ORDERED: GELATIN SPONGE,ABSORB (LARGE) 1 EACH SPONGE TOPICAL ONE (08:00)
--- NOTE | 2023-04-08 10:13 | P.ANPRN ---
Procedure Note - Anesthesia - Invasive Line Right Arterial Line Time Out Performed: Yes (717) Date of Procedure: 04/08/23 Time of Procedure: 07:18 Location of Patient: PreOp Preparation: Sterile Prep, Sterile Dressing Arterial Line Location: Briachial (right) Ultrasound Used: Yes Purpose - Visualization and Identification of Vasculature: Yes Needle Guage: 20g Image Stored and Saved: Yes Narrative: Central line placement per sterile protocol utilized. attempted left radial x2. No avail. Sterile protocol maintainted. Right Brachial attempt x 1 Success. Bled and flushed
--- NOTE | 2023-04-08 10:18 | P.ANPRN ---
Procedure Note - Anesthesia - Invasive Line Right Central Line Time Out Performed: Yes (717) Date of Procedure: 04/08/23 Time of Procedure: 07:36 Location of Patient: PreOp Preparation: Sterile Prep, Sterile Dressing Central Line Location: Internal Jugular (right) Ultrasound Used: Yes Purpose - Visualization and Identification of Vasculature: Yes Needle Guage: 18g angio Image Stored and Saved: Yes Narrative: Central line placement per sterile protocol utilized. +local +angio +cvp +jwire +uneventful dilation and introduction right IJ double lumen catheter. bled and flushed
[2023-04-08] MEDS ORDERED: VANCOMYCIN 1,000 MG VIAL MISCELLANE ONE (10:22)
--- NOTE | 2023-04-08 12:59 | XR ---
Intraoperative/procedural fluoroscopic services were provided for L2-pelvis fusion. Total fluoroscopy time is 1.17 minutes with a total of 11 submitted images to PACS. Total DAP 16.608 Gycm2. Please se e the operative note for further details.
--- NOTE | 2023-04-08 13:00 | P.OP ---
Date of Procedure: 04/08/23 Preoperative Diagnosis: 1. L2-S1 SPONDYLOSIS, SEVERE, DEGENERATIVE DISC DISEASE, SEVERE 2. L4-5 SPONDYLOLISTHESIS WITH STENOSIS 3. LUMBAR STENOSIS WITH RADICULOPATHY 4. NEUROGENIC CLAUDICATION 5. LOW BACK PAIN Postoperative Diagnosis: 1. L2-S1 SPONDYLOSIS, SEVERE, DEGENERATIVE DISC DISEASE, SEVERE 2. L4-5 SPONDYLOLISTHESIS WITH STENOSIS 3. LUMBAR STENOSIS WITH RADICULOPATHY 4. NEUROGENIC CLAUDICATION 5. LOW BACK PAIN Procedure(s) Performed: 1. L5-S1, L4-5 INTRADISCAL 3 COLUMN OSTEOTOMY FOR DEFORMITY CORRECTION (85958, 92080) 2. L2-3, L3-4, L4-5, L5-S1 POSTERIOLATERAL AND INTERBODY FUSION (53694, 27739K0) 3. L4-5, L5-S1 BILATERAL LAMINECTOMY, COMPLETEFCETECTOMY AND FORAMINOTOMIES FOR DEFORMITY CORRECTION AND CAGE PLACEMENT. L2-3, L3-4 LAMINOFORAMINOTOMY FOR DECOMPRESSION OF NEURAL ELEMENTS AND CAGE PLACEMENT (05579, 82321 X3) 4. INSTRUMENTATION L2-PELVIS (56887) 5. ATTACHMENT OF STRUCTURE TO BONY PELVIS NOT SACRUM (85578) 6. INSERTION OF BIOMECHANICAL DEVICES L2-3, L3-4, L4-5, L5-S1 (66560P7) 7. USE OF One Month NAVIGATION FOR SCREW PLACEMENT (31324) USE OF IONM ALL SCREWS TESTING >16mA Implants: -AMADA EVEREST SCREW AND SHAMEKA SYSTEM -GLOBUS SABLE CAGES X3, GLOBUS RISE CAGE X1 -MAGNATOS, ALLOCELL, ARTHROCELL, IFACTOR. AUTOGRAFT, CONTOUR Anesthesia: GETA Surgeon: Brody Bishop Lead Injection Mold Technician #1: Malcom Cevallos (Was present and assisted with all aspects of the case from position to closure. ) Estimated Blood Loss (ml): 650 IV fluids (ml): 3,200 Urine output (ml): 425 Pathology: none sent Condition: stable Disposition: PACU Indications for Procedure: Ms. Barnard is presenting for evaluation of low back pain. It was my pleasure to have seen and examined Ms. Barnard. In our visit today we have had a chance to go over subjective complaints, physical examination findings and treatments including the natural course history without intervention and various interventional options. The patients imaging demonstrates: XRay Lumbar Multiview (AP, Lateral, Flexion, Extension) with AP pelvis; 5 views taken at [facility] on 10/19/21 of Lumbar Spine and Pelvis: - Reviewed with the patient today. Severe spondylosis of L3-S1 with L4-5 grade I spondylolisthesis with 4 mm translation on Flexion film. There is severe facet arthrosis as well as near autofusion of L2-3 noted anteriorly. There is fairly well maintained LL with some flattening and measure around 55 deg with PI around 49. There is retrolisthesis of L3-4 and L5-S1. There is disc height loss L4-5 due to slip and L3-4 due to spondylosis. No fracture. No lesions noted. AP pelvis shows congruent level pelvis no fracture. [facility] of Lumbar Spine: - Reviewed with the patient today. This is reviewed with the patient and demonstrates again Grade I spondylolisthesis L4-5 with marginal reduction down to around 2.3 mm on this supine film (4mm on F/E films).There is severe spondylosis from L3-S1 with disc desiccation, height loss, bulging, facet hypertrophy, ligamental hypertrophy as well as facet bogginess all contributing to central stenosis that is moderate to severe L3-S1 as well as foraminal stenosis that is moderate L3-4 and L5-S1 but more severe L4-5 due to spondylolisthesis.There are no fractures noted.Overall alignment maintained.No fracture. No lesion. On physical exam, Ms. Barnard demonstrates: The patient reports experiencing continued diffuse low back pain with a burning and stabbing quality. The patient also notes radiating pain down into the bilateral lower extremities, worse upon the left compared to the right. The patient reports experiencing increased pain throughout the bilateral foot. The patient notes that her symptoms are exace rbated by all activity, but mostly with prolonged standing or walking. The patient is having severe sleep disturbances at this time. The patient states that her low back pain has worsened since she was last evaluated in office on 04/02/2022. The patient states that her symptoms have started to very significantly affect her overall quality of life. I have explained to the patient that as their condition progresses it will cause further neurological deficits and eventual paralysis. Based on the patients imaging, physical exam, and the rapid progression and disabling nature of their symptoms, at this time I recommend surgery in the form of a: L2-pelvis decompression and fusion. I discussed the risk and benefits of this procedure at length with Ms. Barnard. The patient agreed to considered pursuing the procedure above mentioned. Prior to surgery, she should follow up with her PCP (Cardio, ID, IM etc) for clearance. Questions were invited and answered, and the patient wishes to proceed as outlined below. Currently, I am recommendin.L2-pelvis decompression and fusion. Description of Procedure: L2-PELVIS DECOMPRESSION AND FUSION (LISS) The patient was seen and examined in the preoperative area. All preoperative protocols were followed. Informed consent was obtained, risks and benefits of the procedure were discussed at length. Risks including bleeding infection damage to the surrounding tissue and risk of reoperation were discussed with the patient. Risk of anesthesia up to and including was discussed with the patient. These are outlined in the risk review. They were willing to accept these risks and all the risks of surgery. The patient was given a weight-based dose of antibiotics in the form of 3 g Ancef. The patient was seen and evaluated by the anesthesia team who deemed them fit for surgery. The site was marked, the patient was willing to proceed with the procedure. The patient was transferred to the operative suite by the Department of anesthesia. They were then drifted off to sleep by the department anesthesia and GETA was performed. The patient tolerated this well. Lorenz catheter was placed by nursing staff, a-traumatically. Once confirmation of lines and ventilation the patient was transferred to a prone Trios spine table very carefully. The head was secured and stable. X Ray confirmed alignment. All bony prominences including wrists, elbows, axilla, chest, hips, and thighs, and feet were padded very well. Special attention was paid to the genitalia, and these were padded accordingly. SCDs were placed on bilateral lower extremities and were connected. Arms were well padded and placed at 90/90 up and out and well padded. Safety strap and tape placed on the patient. Once in position, again we confirmed good ventilation capabilities and that lines were running appropriately. The patients lumbosacral pelvic was then exposed. Hair was removed for incision. 1010s were placed outlining the incision site. Standard alcohol was used to clean the incision site and allowed to dry. C-arm was used to bio-yenni the patient and confirm level for incision which was marked with a skin marker. Operative briefing was performed with all teams and everyone in agreement to proceed. The patient was then prepped and draped in a normal sterile fashion. Timeout was then performed, and all parties agreed with the procedure to be performed. Midline skin incision was then made over the previously bookmarked area and dissection taken down to the lumbosacral fascia which was identified and cleaned with a odonnell. There was excessive sub-q adipose that was obtrusive and needed to be retracted. Once midline was identified, fasciotomy was made over the SP of L1-S1 and pelvis. Subperiosteal dissection was then taken down over the lamina and facet joints and TPs were exposed and trough made posterolateral. TPs were then decorticated with a high speed felix for lateral fusion. Dissection was taken out over the sacrum to the pelvis. SI joint identified and S2AI starting point for pelvic screws identified as well. Retractors placed. Wound was irrigated and lateral image with penfield 4 placed at the pars of L4 confirmed levels for operation. SP clamp was then placed for the Archiver's navigation tracker and secured. The wound was then filled with NSS and Z-drape. A 3D Ziehm spin was then obtained and registered. Once confirmation of accuracy screws were then placed from L2-Pelvis using navigation. Navigated high speed felix was used to make a harbor pilot hole followed by a navigated awl-tap passed through the pedicle into the body. A ball tip probe then confirmed within the pedicle. Screw was then measured and placed using a navigated screwdriver. After screws were placed from L2-S1, AP image confirmed safe placement of screws. Lateral images as well as navigation were then used to place bilateral pelvic screws. Starting point selected just lateral to the S2 pseudo facet. Lateral image taken and felix used to make the harbor pilot hole. Gearshift then used to pass into the pelvis under lateral imaging just above the sciatic notch. 30 deg/30deg iliac oblique then taken to confirm within the teardrop and ball tip probe used to probe good bone. Screw was then measured and selected and placed under lateral imaging. This was repeated on the contralateral side. Screws were then visualized and appeared safe. . Screws were then tested, and reliably tested screws tested above 16 mA. We then proceeded to decompression and interbody placement. Starting at L5-S1, bilateral laminectomy, complete facetectomy and foraminotomies were performed using high speed bur, Kerrison rongeur. There was exuberant bone formation, osteophytes and scar tissue surrounding these joints as well as the dura. Once exposed the neural elements were protected and an intradiscal osteotomy, 3 column, was performed for deformity correction at L5- S1. Osteotome was used to make osteotomy in L5 and S1 and for complete disc removal. A box osteotome was then used to widen this bilaterally. This was passed into the anterior 1/3 of L5. This allowed for loosening of this level and correction. A cage was then selected based on shaving and trials. Bleeding endplates were encountered and cartilage removed. Autograft, allograft were then placed anterior to the cage. The cage was then impacted into place under lateral imaging while protecting neural elements. The cage was then expanded into position and showed good lift and correction. Sikh of lordosis and height achieved. Meticulous hemostasis then performed. Cage was backfilled with DBM and the area irrigated. We then proceeded to L4-5. At L4-5, bilateral laminectomy, complete facetectomy and foraminotomy was performed as described above. Again, exuberant scar tissue and bone formation was encountered and at this level specifically around the pars due to the defect and slip in this area. There was also a large disc osteophyte complex that was identified once disc space was found. The dura was carefully dissected off this anteriorly and b/l. Once encountered, the disc space was then accessed in a similar fashion and neural elements protected. Intradiscal, 3 column osteotomies, for deformity correction was then performed again at this level as described above. Once completed and complete discectomy performed there was good mobility at this level. Cage was then sized and selected. Autograft and allograft was then placed anterior in the disc space and the cage was then inserted and impacted into place under lateral. AP image, as before, was taken to ensure midline placement. The cage was then expanded into position. During expansion, the cage seemed to fail to expand completely on the RHS. The LHS expanded very well and recreated height and lordosis. The cage was tested and was very stable and since it was in safe position without any other issues it was elected to keep the cage in position. The wound was irrigated. Meticulous hemostasis then performed, and attention turned to L3-4. At L3-4 again bilateral laminectomy, complete facetectomy and foraminotomy were performed. The neural elements were less scared at this level; however, it was very unstable. The elements were then protected, and disc space accessed. Sequential shaving performed until desired height and lordosis. Cage selected, and graft placed anterior to the cage within the disc space. Cage was then placed under lateral image, expanded and had good height, lordosis and deformity correction. The wound was irrigated, and meticulous hemostasis performed once again. At L2-3 again bilateral laminectomy, complete facetectomy and foraminotomy were performed. The elements were then protected, and disc space accessed. Sequential shaving performed until desired height and lordosis. Cage selected, and graft placed anterior to the cage within the disc space. Cage was then placed under lateral image, expanded and had good height, lordosis and deformity correction. The wound was irrigated, and meticulous hemostasis performed once again. Attention was then drawn to shameka placement. Rods were selected, measured, cut and bent to appropriate lordosis. They were then secured into pelvic screws b/l. Sequential reduction then done into each screw and set screw placed. Set screws were then final tightened and lateral image showed good lordosis reduction with increase around 10 deg from starting. Once rods were secured, cross links were selected and placed and final tightened. The wound was then irrigated with 3L Ancef irrigation, 3L gentamicin irrigation and 3L NSS. Surgicel was then placed on the dura, which was inspected and had no injury. Then, in the posterolateral gutter was placed, MagnatOs, Autograft and allograft. This was impacted into position and surgical placed over it. 2g Vanco powder was then placed deep in the wound. A deep, subfascial drain was placed and a superficial facial drain placed. We then proceeded with layered closure. #1 PDS placed in the deep fascia. 0 Vicryl placed in the deep subq, 2-0 placed in the superficial subq and wilner placed in the skin. The wound edges approximated very well. The wound was then cleaned with ETOH and dressed with optifoam dressing, drain sponges and tegaderms. Drains sewed into position. IONM confirmed no changes. The patient was then transferred off the [facility] spine table to their hospital bed a-traumatically. Drains continued to hold suction. The patient was then extubated and transferred to the ICU in stable condition having tolerated the procedure with no complications.
[2023-04-08] MEDS ORDERED: CYCLOBENZAPRINE 5 MG TAB PO PRN (13:13)
[2023-04-08] MEDS ORDERED: SENNOSIDES-DOCUSATE SODIUM 1 EACH TAB PO PRN (13:13)
[2023-04-08] MEDS ORDERED: MAGNESIUM HYDROXIDE 2,400 MG/30 ML CUP PO PRN (13:13)
[2023-04-08] MEDS ORDERED: KETOROLAC 15 MG/ML 1 ML VIAL IVP ONE (13:16)
[2023-04-08] MEDS ORDERED: droPERidol 5 MG/2 ML VIAL IVP ONE (13:30)
--- NOTE | 2023-04-08 14:14 | XR ---
EXAMINATION TYPE: XR chest 1V confirm line plcmt DATE OF EXAM: 04/08/2023 HISTORY: Shortness of breath. COMPARISON: 10/05/2021 TECHNIQUE: Single view of the chest is submitted. FINDINGS: Demonstrated are scattered senescent parenchymal change. Right IJ central venous line with its distal tip overlying the SVC. No evidence for thorax. Increased basilar markings may reflect underlying pneumonia. Correlate clinically. The heart is stable. Hilar and mediastinal structures are within normal limits. Degenerative changes are seen of the dorsal spine. IMPRESSION: Right IJ central venous line with its distal tip overlying the SVC. No evidence for thorax. Increased basilar markings may reflect underlying pneumonia. Correlate clinically.
[2023-04-08] MEDS: HYDROcodone/APAP 10-325MG 1 EACH TAB PO PRN ×2 (17:41→23:52)
[2023-04-08] MEDS: GABAPENTIN 300 MG CAP PO SCH ×2 (17:41→21:00)
[2023-04-08] MEDS: ACETAMINOPHEN TAB 325 MG TAB PO SCH ×2 (17:48→23:54)
--- NOTE | 2023-04-08 19:00 | CT ---
EXAMINATION TYPE: CT lumbar spine wo con CT DLP: 1851.7 mGycm, Automated exposure control for dose reduction was used. DATE OF EXAM: 04/08/2023 6:38 PM COMPARISON: 01/07/2023. CLINICAL INDICATION:Female, 63 years old with history of s/p L2-pelvis decompr and fusion; PHH, Post surgical (L2-Pelvis compression and fusion) TECHNIQUE: Multiple axial images were obtained from the midportion of T11 through the sacroiliac marvin nts. Soft tissue and bone windows in coronal and sagittal planes were obtained and reviewed. 3-D ref ormats of the bones were created on a separate workstation and submitted for review. Contrast used: none. Oral contrast used: none. FINDINGS: Postsurgical changes to the lumbar spine with fixation hardware at L2-S1 with discectomy at L2-L3, L3 -L4, L4-L5 and L5-S1. Hardware limits evaluation at these levels. Hardware appears intact. No evidenc e of fracture. Postsurgical changes in the soft tissues with foci of gas present. Drainage catheter with tubing in t he surgical bed. Posterior back skin wilner are present. IMPRESSION: Postsurgical changes without evidence of immediate post operative complication.
[2023-04-09] MEDS: HYDROmorphone 0.5 MG/0.5 ML SYRINGE IVP PRN ×2 (02:35→05:15)
[2023-04-09] MEDS: ONDANSETRON 4 MG/2 ML VIAL IVP PRN ×4 (02:36→20:07)
[2023-04-09] MEDS: ACETAMINOPHEN TAB 325 MG TAB PO SCH ×3 (07:27→17:23)
[2023-04-09] MEDS: GABAPENTIN 300 MG CAP PO SCH ×3 (07:28→21:26)
[2023-04-09] MEDS: LACTATED RINGERS 1,000 ML IV SCH ×2 (09:02→13:15)
[2023-04-09] MEDS: METOCLOPRAMIDE 5 MG/ML 2 ML VIAL IVP PRN ×2 (09:22→16:02)
[2023-04-09] MEDS: HYDROmorphone 1 MG/ML 1 ML SYRINGE IVP PRN ×3 (09:25→20:16)
[2023-04-09] MEDS ORDERED: PANTOPRAZOLE 40 MG TABLET PO SCH (09:45)
[2023-04-09] MEDS: ASCORBIC ACID 500 MG TAB PO SCH (11:15)
[2023-04-09] MEDS: LORATADINE 10 MG TAB PO SCH (11:16)
[2023-04-09] MEDS: FERROUS SULFATE 325 MG TAB PO SCH (11:16)
[2023-04-09] MEDS: LEVOTHYROXINE 125 MCG TAB PO SCH (11:16)
[2023-04-09] MEDS: lisinopriL 10 MG TAB PO SCH (11:18)
[2023-04-09] MEDS ORDERED: hydrALAZINE HCL 20 MG/ML 1 ML VIAL IVP PRN (13:21)
--- NOTE | 2023-04-09 13:45 | P.PN ---
Subjective Progress Note Date: 04/09/23 Principal diagnosis: Status post L2 to pelvis decompression and fusion Patient was evaluated today at bedside, she is resting in her hospital bed, her is present at bedside. Patient dealing with a lot of nausea and vomiting this morning. Patient has not been out of bed at this time. He remains in place at this time. She does report pain back with movement. She denies headaches, lightheadedness, chest pain or shortness of breath. Objective - Vital Signs Vital signs: Vital Signs Temp 97.3 F L 04/09/23 07:18 Pulse 86 04/09/23 07:18 Resp 18 04/09/23 07:18 BP 185/103 04/09/23 07:18 Pulse Ox 94 L 04/09/23 07:18 FiO2 Intake & Output 04/08/23 04/09/23 04/09/23 18:59 06:59 18:59 Intake Total 1450 Output Total 1895 660 Balance -445 -660 Intake: IV 1450 Output: Drainage 45 10 Right Lower Back 45 10 Urine 1200 650 Estimated Blood Loss 650 Other: Voiding Method Indwelling Catheter Indwelling Catheter - Exam Gen: AOx3, NAD VSS stable at this time Integument: Postoperative bandages in good position and condition, drain is putting out mild serosanguineous bloody fluid at this time Palpation: She demonstrates tenderness with palpation throughout the lumbar spine both midline and paraspinal ROM: Full range of motion in all major muscle groups bilateral upper and lower extremities, no focal deficits appreciated Sensory Exam: Senory exam to light touch is intact C5-T1 Senosry exam to light touch is intact L2-S1 Motor: 5/5 strength appreciated in the bilateral upper extremities with shoulder elevation, shoulder abduction, elbow extension, elbow flexion, wrist extension, wrist flexion, special procedures nurse 4/5 strength appreciated in the bilateral lower extremities with hip flexion, extension, knee flexion, plantar flexion, dorsiflexion, EHL, FHL Reflexes: 2/4 in all UE and LE Negative Riley's bilaterally Negative Babinski bilaterally Negative Clonus bilaterally Special Test: Negative straight leg raise bilaterally Assessment and Plan Assessment: Postoperative day #1 status post [id number] decompression and fusion Nausea and vomiting Other medical comorbidities Plan: Pain control, discussed the patient to try to avoid narcotics at this time due to her nausea and vomiting. Patient has multiple antinausea medications on board, continue with those as needed. DVT prophylaxis, we'll begin heparin 5000 units every 12 starting tonight Wound care, continue to monitor surgical dressing. Leave drain in place, I anticipate she'll have more out she gets up and starts to ambulate Encourage incentive spirometry Weight-bear as tolerated, also brace has been placed in chart, this was discussed with case management. Brace needs to be utilizing walking longer distances. Recommend using a walker at all times with ambulation PT/OT evaluation Medical recommendations appreciated We'll continue to follow during hospital stay Time with Patient: Less than 30
[2023-04-09] MEDS ORDERED: PANTOPRAZOLE 40 MG/10 ML VIAL IVP STA (16:12)
[2023-04-09] MEDS ORDERED: PANTOPRAZOLE 40 MG/10 ML VIAL IVP SCH (16:15)
[2023-04-09 16:18] LABS: Basophils % (A) 0 %; Eosinophils # (A) 0.1 k/uL (0-0.7); Eosinophils % (A) 1 %; HCT 34.1 % (34.0-46.0); HGB 11.2 gm/dL (11.4-16.0); Lymphocytes # (A) 0.7 k/uL (1.0-4.8); Lymphocytes % (A) 5 %; MCH 31.2 pg (25.0-35.0); MCHC 32.8 g/dL (31.0-37.0); MCV 95.1 fL (80.0-100.0); Mean Platelet Volume 7.7; Monocytes # (A) 0.6 k/uL (0-1.0); Monocytes % (A) 4 %; Neutrophils # (A) 11.7 k/uL (1.3-7.7); Neutrophils % (A) 89 %; Platelet Count 137 k/uL (150-450); RBC 3.59 m/uL (3.80-5.40); RDW 14.1 % (11.5-15.5); WBC 13.1 k/uL (3.8-10.6)
[2023-04-09] MEDS ORDERED: SCOPOLAMINE 1 MG/72 HR PATCH TRANSDERM SCH (17:00)
[2023-04-09] MEDS: KETOROLAC 15 MG/ML 1 ML VIAL IVP PRN (17:36)
[2023-04-09] MEDS: PANTOPRAZOLE 40 MG/10 ML VIAL IVP SCH (20:08)
[2023-04-09] MEDS: HEPARIN SODIUM,PORCINE 5,000 UNIT/ML 1 ML VIAL SQ SCH (21:26)
[2023-04-09] MEDS: ATORVASTATIN 20 MG TAB PO SCH (21:26)
[2023-04-09] MEDS: LATANOPROST 0.005% OPHTH DROPS 2.5 ML BTL BOTH EYES SCH (21:26)
[2023-04-09 21:59] LABS: BUN/Creat Ratio 15.17 Ratio (12.00-20.00); Blood Urea Nitrogen 9.1 mg/dL (9.0-27.0); Calcium 8.9 mg/dL (8.7-10.3); Carbon Dioxide 25.3 mmol/L (21.6-31.8); Chloride 100 mmol/L (96-109); Glucose 170 mg/dL (70-110); Potassium 4.1 mmol/L (3.5-5.5); Sodium 138 mmol/L (135-145)
[2023-04-10] MEDS: HYDROmorphone 1 MG/ML 1 ML SYRINGE IVP PRN ×4 (00:11→21:59)
[2023-04-10] MEDS: METOCLOPRAMIDE 5 MG/ML 2 ML VIAL IVP SCH ×4 (00:13→18:14)
[2023-04-10] MEDS: ACETAMINOPHEN TAB 325 MG TAB PO SCH ×4 (00:15→22:02)
--- NOTE | 2023-04-10 01:45 | CONS ---
CONSULTATION REASON FOR CONSULTATION: Advice regarding hypertension, other medical issues requested by orthopedics. HISTORY OF PRESENT ILLNESS: This 63-year-old woman with a past medical history of multiple medical issues including hypertension, was admitted after L2 to S1 laminectomy and fusion. There is no history of any fever, rigors, chills, headache, or loss of consciousness. The patient complains of some pain. PAST MEDICAL HISTORY: Reviewed include GERD, hypertension, hyperlipidemia, DJD. HOME MEDICATIONS: Zestril dose and rest of medications noted. ALLERGIES: Codeine. FAMILY HISTORY: History of colon cancer. SOCIAL HISTORY: No history of smoking or alcohol. REVIEW OF SYSTEMS: Fourteen-point review is negative except as mentioned earlier. PHYSICAL EXAMINATION: VITAL SIGNS: Pulse is 86, blood pressure is 188/103, respirations 18. HEENT: Conjunctivae normal. NECK: No jugular venous distention. CARDIOVASCULAR: S1, S2 muffled. RESPIRATION: Breath sounds diminished at the bases. No rhonchi. No crackles. ABDOMEN: Soft, nontender. NERVOUS SYSTEM: No focal deficits. LABORATORY DATA: Not available. ASSESSMENT: 1. Status post L2-S1 laminectomy and fusion multiple levels. 2. Hypertension. 3. Hyperlipidemia. 4. Chronic low back pain. 5. History of hypothyroidism. 6. Multiple medical issues. RECOMMENDATIONS: This 63-year-old woman presented after surgery. At this time, I recommended to resume the home medications, pain management, DVT prophylaxis, incentive spirometry. We will follow the patient closely with you and the patient may be asked to follow up with primary physician closely after discharge. Further recommendations to follow. MMODL / IJN: [id number] /
[2023-04-10] MEDS: KETOROLAC 15 MG/ML 1 ML VIAL IVP PRN ×2 (03:47→17:24)
[2023-04-10] MEDS: ONDANSETRON 4 MG/2 ML VIAL IVP PRN (03:55)
[2023-04-10] MEDS: LACTATED RINGERS 1,000 ML IV SCH ×4 (05:48→17:18)
[2023-04-10] MEDS: LEVOTHYROXINE 125 MCG TAB PO SCH (06:29)
[2023-04-10] MEDS: HEPARIN SODIUM,PORCINE 5,000 UNIT/ML 1 ML VIAL SQ SCH ×2 (09:03→22:03)
[2023-04-10] MEDS: PANTOPRAZOLE 40 MG/10 ML VIAL IVP SCH ×2 (09:04→22:03)
[2023-04-10] MEDS: ASCORBIC ACID 500 MG TAB PO SCH (09:09)
[2023-04-10] MEDS: FERROUS SULFATE 325 MG TAB PO SCH (09:09)
[2023-04-10] MEDS: LORATADINE 10 MG TAB PO SCH (09:09)
[2023-04-10] MEDS: GABAPENTIN 300 MG CAP PO SCH ×3 (09:09→22:03)
[2023-04-10] MEDS: HYDROcodone/APAP 5-325MG 1 EACH TAB PO PRN ×2 (11:07→16:29)
[2023-04-10] MEDS: lisinopriL 10 MG TAB PO SCH (11:07)
--- NOTE | 2023-04-10 12:20 | P.PN ---
Subjective Progress Note Date: 04/10/23 Principal diagnosis: Status post L2 to pelvis decompression and fusion Patient was evaluated today at bedside, she is resting in her hospital chair. Patient continues to deal with nausea and vomiting, seem slightly improved since yesterday. We had a long discussion again today regarding the use of IV Dilaudid and trying to discontinue that the help with the overall nausea and vomiting. We discussed the use of occasional Toradol to help with pain control. We again discussed the need for the patient to be out of bed and working with physical therapy as best as she can. She denies headaches, lightheadedness, chest pain or shortness of breath. Objective - Vital Signs Vital signs: Vital Signs Temp 97.2 F L 04/10/23 07:33 Pulse 74 04/10/23 10:35 Resp 16 04/10/23 07:33 BP 117/65 04/10/23 10:35 Pulse Ox 92 L 04/10/23 10:35 FiO2 Intake & Output 04/09/23 04/10/23 04/10/23 18:59 06:59 18:59 Output Total 610 460 Balance -610 -460 Output: Drainage 10 10 Right Lower Back 10 10 Urine 600 450 Other: Voiding Method Indwelling Catheter Indwelling Catheter - Exam Gen: AOx3, NAD VSS stable at this time Integument: Postoperative bandages in good position and condition, drain is putting out mild serosanguineous bloody fluid at this time Palpation: She demonstrates tenderness with palpation throughout the lumbar spine both midline and paraspinal ROM: Full range of motion in all major muscle groups bilateral upper and lower extremities, no focal deficits appreciated Sensory Exam: Senory exam to light touch is intact C5-T1 Senosry exam to light touch is intact L2-S1 Motor: 5/5 strength appreciated in the bilateral upper extremities with shoulder elevation, shoulder abduction, elbow extension, elbow flexion, wrist extension, wrist flexion, physics department chair 4/5 strength appreciated in the bilateral lower extremities with hip flexion, extension, knee flexion, plantar flexion, dorsiflexion, EHL, FHL Reflexes: 2/4 in all UE and LE Negative Riley's bilaterally Negative Babinski bilaterally Negative Clonus bilaterally Special Test: Negative straight leg raise bilaterally - Labs CBC & Chem 7: 04/09/23 15:50 04/09/23 15:50 Labs: Abnormal Lab Results - Last 24 Hours (Table) 04/09/23 04/09/23 Range/Units 15:50 15:50 WBC 13.1 H (3.8-10.6) k/uL RBC 3.59 L (3.80-5.40) m/uL Hgb 11.2 L (11.4-16.0) gm/dL Plt Count 137 L (150-450) k/uL Neutrophils # 11.7 H (1.3-7.7) k/uL Lymphocytes # 0.7 L (1.0-4.8) k/uL Anion Gap 12.70 H (4.00-12.00) mmol/L Glucose 170 H (70-110) mg/dL Assessment and Plan Assessment: Postoperative day #2 status post [id number] decompression and fusion Nausea and vomiting Other medical comorbidities Plan: Pain control, discussed the patient to try to avoid narcotics at this time due to her nausea and vomiting. Patient has multiple antinausea medications on board, continue with those as needed. DVT prophylaxis, continue heparin 5000 units every 12 hours Wound care, continue to monitor surgical dressing. Plan for dressing change on 04/11/2023, may pull Hemovac at that time pending output Encourage incentive spirometry Weight-bear as tolerated, utilize walker at all times. LSO brace when up and ambulating. No bending, twisting or lifting PT/OT evaluation Medical recommendations appreciated We'll continue to follow during hospital stay Time with Patient: Less than 30
[2023-04-10] MEDS ORDERED: HYDROcodone/APAP 5-325MG 1 EACH TAB PO PRN (19:24)
[2023-04-10] MEDS: LATANOPROST 0.005% OPHTH DROPS 2.5 ML BTL BOTH EYES SCH (22:03)
[2023-04-10] MEDS: ATORVASTATIN 20 MG TAB PO SCH (22:03)
[2023-04-10] MEDS: CYCLOBENZAPRINE 5 MG TAB PO SCH (22:03)
[2023-04-11] MEDS: METOCLOPRAMIDE 5 MG/ML 2 ML VIAL IVP SCH ×5 (00:31→23:42)
[2023-04-11] MEDS: ACETAMINOPHEN TAB 325 MG TAB PO SCH ×5 (00:33→23:42)
[2023-04-11] MEDS: HYDROmorphone 1 MG/ML 1 ML SYRINGE IVP PRN ×2 (00:37→05:48)
--- NOTE | 2023-04-11 02:55 | PN ---
PROGRESS NOTE DATE OF SERVICE: 04/10/2023 SUBJECTIVE: This is a 63-year-old woman, who was admitted after back surgery, is complaining of some back pain. Otherwise, the patient improved significantly. No chest pain. No palpitations. No fever. OBJECTIVE: VITAL SIGNS: Pulse 83, blood pressure 106/64, respirations 16. CHEST: Clear to auscultation. CARDIOVASCULAR: S1, S2. ABDOMEN: Soft. BACK: Status post surgery. LABORATORY DATA: Noted. ASSESSMENT: 1. Status post L2-S1 lumbar laminectomy with multiple levels and fusion. 2. Hypertension. 3. Hyperlipidemia. 4. Chronic low back pain. 5. History of hypothyroidism. 6. Multiple medical issues. RECOMMENDATIONS: Recommend to continue current management and continue symptomatic treatment. Continue the pain management. Continue DVT prophylaxis. Incentive spirometry. Please refer to Orthopedic Surgery for details of the surgery. Otherwise, resume the home medications and further recommendations to follow. MMODL / IJN: [id number] /
[2023-04-11] MEDS: LEVOTHYROXINE 125 MCG TAB PO SCH (05:48)
[2023-04-11] MEDS: LACTATED RINGERS 1,000 ML IV SCH ×2 (05:57→19:31)
[2023-04-11 07:17] LABS: Glucose,Whole Blood 120 mg/dL (70-110)
[2023-04-11] MEDS ORDERED: bisacodyL 10 MG SUPP RECTAL STA (07:58)
[2023-04-11] MEDS: ASCORBIC ACID 500 MG TAB PO SCH (09:03)
[2023-04-11] MEDS: PANTOPRAZOLE 40 MG/10 ML VIAL IVP SCH ×2 (09:04→21:02)
[2023-04-11] MEDS: SENNOSIDES-DOCUSATE SODIUM 1 EACH TAB PO SCH (09:04)
[2023-04-11] MEDS: CYCLOBENZAPRINE 5 MG TAB PO SCH ×3 (09:04→21:01)
[2023-04-11] MEDS: GABAPENTIN 300 MG CAP PO SCH ×3 (09:04→21:01)
[2023-04-11] MEDS: lisinopriL 10 MG TAB PO SCH (09:04)
[2023-04-11] MEDS: HEPARIN SODIUM,PORCINE 5,000 UNIT/ML 1 ML VIAL SQ SCH ×2 (09:04→21:01)
[2023-04-11] MEDS: LORATADINE 10 MG TAB PO SCH (09:04)
[2023-04-11] MEDS: FERROUS SULFATE 325 MG TAB PO SCH (09:04)
--- NOTE | 2023-04-11 09:14 | P.PN ---
Subjective Progress Note Date: 04/11/23 Principal diagnosis: 1. L2-S1 spondylosis with stenosis 2. Grade I spondylolisthesis of L4 on L5 3. Neurogenic claudication 4. Lower extremity paresthesias Patient seen and examined this morning. Patient is resting comfortable in bed with complaint of nausea. She states she has been receiving IV Dilaudid and oral [place] without relief of her pain. Medications will be adjusted. Informed patient that she needs to be up ambulatory within room and up to chair with all meals. She does report some abdominal discomfort. She states she is passing gas, no BM at this time. Baeza catheter is to be discontinued today. Surgical incision to the lumbar spine, edges are well approximated with wilner intact. Hemovac drain has been removed. New dressing applied. Encouraging patient to work with physical therapy today and to use her incentive spirometer. No acute concerns at this time. Objective - Vital Signs Vital signs: Vital Signs Temp 98.7 F 04/11/23 02:00 Pulse 83 04/11/23 02:00 Resp 16 04/11/23 02:00 BP 107/58 04/11/23 02:00 Pulse Ox 95 04/11/23 02:00 FiO2 Intake & Output 04/10/23 04/11/23 04/11/23 18:59 06:59 18:59 Intake Total 450 Output Total 10 Balance 450 -10 Intake: Intake, IV Titration 450 Amount Lactated Ringers 1,000 ml 450 @ 75 mls/hr IV .[id number] [facility] Rx#:[id number] Output: Drainage 10 Right Lower Back 10 Other: Voiding Method Indwelling Catheter Indwelling Catheter # Voids 500 - Exam Physical Examination General: The patient is awake and alert, in no acute distress Skin: Skin is warm and dry with no obvious rashes or lesions. Surgical incision to the lumbar spine, edges are well approximated with wilner intact. No active drainage. Hemovac has been removed. New surgical dressing applied. Eye: Pupils are equal, round and reactive to light, extra-ocular movements are intact; there is normal conjunctiva bilaterally. Neck: The neck is supple, there is no tenderness and ROM intact. Cardiovascular: There is a regular rate and rhythm. No murmur, rub or gallop is appreciated. Respiratory: Lungs are clear to auscultation, respirations are non-labored, breath sounds are equal. Gastrointestinal: Soft, non-distended, non-tender abdomen. Back: There is no tenderness to palpation in the midline, paralumbar, para thoracic or buttocks region. There is no obvious deformity . Musculoskeletal: ROM limited secondary to pain and stiffness from surgical procedure. Muscle strength in all major muscle groups of bilateral upper extremities 5/5, bilateral lower extremities 4/5. Neurological: CN 2-12 intact. There are no obvious motor or sensory deficits. Movement and coordination equal and intact. Sensory exam to light touch intact C5-T1 and intact from L2-S1. Reflexes 2/4 in bilateral upper and lower extremities. Negative Hoffmans, babinski, and clonus signs. Psychiatric: Cooperative, appropriate mood & affect, normal judgment. - Labs CBC & Chem 7: 04/09/23 15:50 04/09/23 15:50 Labs: Abnormal Lab Results - Last 24 Hours (Table) 04/11/23 Range/Units 07:15 POC Glucose (mg/dL) 120 H (70-110) mg/dL Assessment and Plan Assessment: Postop day 3: [id number] decompression and fusion 1. L2-S1 spondylosis with stenosis 2. Grade I spondylolisthesis of L4 on L5 3. Neurogenic claudication 4. Lower extremity paresthesias Plan: -Appreciate jewelry consultant and team management. -Activity: Ambulate QID, OOB all meals, up and about, limit lifting bending twisting to less than 5 lbs. Use walker or cane if needed for stability. -Daily PT/OT, increase ambulation strength and balance. -Brace when up and about, not needed in bed or chair -Pain control: Adequate at this time -Meds: reviewed -GI ppx: senna, Miralax -DC baeza today -DVT PPX: Heparin -Hygiene: Shower today. Maintain dressing clean and dry. Meticulous cleaning after BMs away from the incision site -Encourage IS 10x/hr -Dispo: Anticipate discharge home tomorrow with homecare *I reviewed and discussed this case with my attending Dr. Bishop, whom has reviewed this chart and films and is in agreement with assessment and plan of care as outlined above. I have personally seen and examined the patient, performed the documentation and the assessment and plan as written. Number of minutes spent on the visit: 30m.
[2023-04-11] MEDS: HYDROcodone/APAP 7.5-325MG 1 EACH TAB PO PRN ×2 (10:04→18:42)
[2023-04-11] MEDS: KETOROLAC 15 MG/ML 1 ML VIAL IVP PRN (12:57)
--- NOTE | 2023-04-11 19:13 | PN ---
PROGRESS NOTE DATE OF SERVICE: 04/11/2023 SUBJECTIVE: This is a 63-year-old woman, who was admitted after a lumbar surgery, still having significant pain. No chest pain. No palpitations. No fever. PHYSICAL EXAMINATION: VITAL SIGNS: Pulse is 95, blood pressure 151/84, respirations 19. CHEST: Clear to auscultation. CARDIOVASCULAR: S1 and S2. ABDOMEN: Soft. BACK: Status post surgery. LABORATORY DATA: Reviewed from yesterday. ASSESSMENT: 1. Status post L2 to S1 lumbar laminectomy with multiple-level fusions. 2. Hypertension. 3. Hyperlipidemia. 4. Chronic low back pain. 5. History of hypothyroidism. 6. Multiple medical issues. RECOMMENDATIONS: Recommend to continue current medications. Continue symptomatic treatment. Repeat labs tomorrow. DVT prophylaxis. Symptomatic treatment of the pain. Continue with Protonix. Further recommendations to follow. MMODL / IJN: [id number] /
[2023-04-11] MEDS: ONDANSETRON 4 MG/2 ML VIAL IVP PRN (19:30)
[2023-04-11] MEDS: ATORVASTATIN 20 MG TAB PO SCH (21:01)
[2023-04-11] MEDS: LATANOPROST 0.005% OPHTH DROPS 2.5 ML BTL BOTH EYES SCH (21:02)
[2023-04-12] MEDS: HYDROcodone/APAP 7.5-325MG 1 EACH TAB PO PRN ×2 (00:42→06:40)
[2023-04-12] MEDS: KETOROLAC 15 MG/ML 1 ML VIAL IVP PRN (04:33)
[2023-04-12] MEDS: LACTATED RINGERS 1,000 ML IV SCH ×2 (05:55→08:11)
[2023-04-12] MEDS: LEVOTHYROXINE 125 MCG TAB PO SCH (05:55)
[2023-04-12] MEDS: METOCLOPRAMIDE 5 MG/ML 2 ML VIAL IVP SCH (05:55)
[2023-04-12] MEDS: ACETAMINOPHEN TAB 325 MG TAB PO SCH (05:56)
[2023-04-12 07:51] VITALS: TEMP 98.7
[2023-04-12] MEDS: GABAPENTIN 300 MG CAP PO SCH (08:09)
[2023-04-12] MEDS: ASCORBIC ACID 500 MG TAB PO SCH (08:09)
[2023-04-12] MEDS: CYCLOBENZAPRINE 5 MG TAB PO SCH (08:09)
[2023-04-12] MEDS: LORATADINE 10 MG TAB PO SCH (08:09)
[2023-04-12] MEDS: FERROUS SULFATE 325 MG TAB PO SCH (08:09)
[2023-04-12] MEDS: SENNOSIDES-DOCUSATE SODIUM 1 EACH TAB PO SCH (08:09)
[2023-04-12] MEDS: lisinopriL 10 MG TAB PO SCH (08:09)
[2023-04-12] MEDS: PANTOPRAZOLE 40 MG/10 ML VIAL IVP SCH (08:10)
[2023-04-12] MEDS: HEPARIN SODIUM,PORCINE 5,000 UNIT/ML 1 ML VIAL SQ SCH (08:10)
[2023-04-12] MEDS ORDERED: HYDROcodone/APAP 7.5-325MG 1 EACH TAB PO PRN (08:48)
[2023-04-12 09:36] VITALS: BP 146/77; PULSE 77; RESP 16
--- NOTE | 2023-04-12 09:36 | P.PN ---
Subjective Progress Note Date: 04/12/23 Principal diagnosis: 1. L2-S1 spondylosis with stenosis 2. Grade I spondylolisthesis of L4 on L5 3. Neurogenic claudication 4. Lower extremity paresthesias Patient seen and examined this morning. Patient is sitting up in chair. She st ates she has had resolution of her nausea. She reports her pain is managed on current regimen. Patient states she worked with PT yesterday and tolerated well. LSO brace delivered at bedside. Prescription for walker has been provided. Surgical incision to the lumbar spine, dressing is CDI. Patient reports she is comfortable with discharge home, her spouse is available to assist her. No acute concerns at this time. Objective - Vital Signs Vital signs: Vital Signs Temp 98.7 F 04/12/23 07:17 Pulse 81 04/12/23 07:17 Resp 20 04/12/23 07:17 BP 173/104 04/12/23 07:17 Pulse Ox 92 L 04/12/23 07:19 FiO2 Intake & Output 04/11/23 04/12/23 04/12/23 18:59 06:59 18:59 Intake Total 900 Output Total 950 Balance -50 Intake: Intake, IV Titration 900 Amount Lactated Ringers 1,000 ml 900 @ 75 mls/hr IV .[id number] [facility] Rx#:[id number] Output: Urine 950 Other: Voiding Method Indwelling Catheter Bedside Commode # Voids 1 # Bowel Movements 1 - Exam Physical Examination General: The patient is awake and alert, in no acute distress Skin: Skin is warm and dry with no obvious rashes or lesions. Surgical incision to the lumbar spine, dressing CDI. Eye: Pupils are equal, round and reactive to light, extra-ocular movements are intact; there is normal conjunctiva bilaterally. Neck: The neck is supple, there is no tenderness and ROM intact. Cardiovascular: There is a regular rate and rhythm. No murmur, rub or gallop is appreciated. Respiratory: Lungs are clear to auscultation, respirations are non-labored, breath sounds are equal. Gastrointestinal: Soft, non-distended, non-tender abdomen. Back: There is no tenderness to palpation in the midline, paralumbar, parathoracic or buttocks region. There is no obvious deformity . Musculoskeletal: ROM limited secondary to pain and stiffness from surgical procedure. Muscle strength in all major muscle groups of bilateral upper extremities 5/5, bilateral lower extremities 4/5. Neurological: CN 2-12 intact. There are no obvious motor or sensory deficits. Movement and coordination equal and intact. Sensory exam to light touch intact C5-T1 and intact from L2-S1. Reflexes 2/4 in bilateral upper and lower extremities. Negative Hoffmans, babinski, and clonus signs. Psychiatric: Cooperative, appropriate mood & affect, normal judgment. - Labs CBC & Chem 7: 04/09/23 15:50 04/09/23 15:50 Assessment and Plan Assessment: Postop day 4: [id number] decompression and fusion 1. L2-S1 spondylosis with stenosis 2. Grade I spondylolisthesis of L4 on L5 3. Neurogenic claudication 4. Lower extremity paresthesias Plan: -Appreciate account consultant and team management. -Activity: Ambulate QID, OOB all meals, up and about, limit lifting bending twisting to less than 5 lbs. Use walker or cane if needed for stability. -Daily PT/OT, increase ambulation strength and balance. -Brace when up and about, not needed in bed or chair -Pain control: Adequate at this time -Meds: reviewed -GI ppx: senna, Miralax -DVT PPX: Heparin -Hygiene: Shower today. Maintain dressing clean and dry. Meticulous cleaning after BMs away from the incision site -Encourage IS 10x/hr -Dispo: Anticipate discharge home later today with homecare *I reviewed and discussed this case with my attending Dr. Bishop, whom has reviewed this chart and films and is in agreement with assessment and plan of care as outlined above. I have personally seen and examined the patient, performed the documentation and the assessment and plan as written. Number of minutes spent on the visit: 30m.
[2023-04-12 11:00] LABS: Basophils # (A) 0.02 X 10*3/uL (0.00-0.10); Basophils % (A) 0.3 %; Eosinophils # (A) 0.11 X 10*3/uL (0.04-0.35); Eosinophils % (A) 1.5 %; HCT 26.5 % (37.2-46.3); HGB 8.7 g/dL (12.0-15.0); Lymphocytes # (A) 0.73 X 10*3/uL (0.90-5.00); Lymphocytes % (A) 9.7 %; MCH 30.9 pg (27.0-32.0); MCHC 32.8 g/dL (32.0-37.0); Mean Platelet Volume 9.7 FL (9.5-12.2); Monocytes # (A) 0.47 X 10*3/uL (0.20-1.00); Monocytes % (A) 6.2 %; NRBC Per 100 WBC 0 X 10*3/uL (0.00-0.01); Neutrophils # (A) 6.15 X 10*3/uL (1.80-7.70); Neutrophils % (A) 81.5 %; Platelet Count 153 X 10*3/uL (140-440); RBC 2.82 X 10*6/uL (4.10-5.20); RDW 13.8 % (11.5-14.5); WBC 7.54 X 10*3/uL (4.50-10.00)
[2023-04-12 11:15] LABS: ALT 55 U/L (8-44); AST 67 U/L (13-35); Albumin 3.3 g/dL (3.8-4.9); Albumin/Globulin Ratio 1.32 Ratio (1.60-3.17); Alkaline Phosphatase 118 U/L (41-126); BUN/Creat Ratio 24.33 Ratio (12.00-20.00); Blood Urea Nitrogen 14.6 mg/dL (9.0-27.0); Calcium 8.9 mg/dL (8.7-10.3); Carbon Dioxide 27.5 mmol/L (21.6-31.8); Chloride 97 mmol/L (96-109); Globulin 2.5 g/dL (1.6-3.3); Glucose 107 mg/dL (70-110); Potassium 3.5 mmol/L (3.5-5.5); Sodium 136 mmol/L (135-145); Total Bilirubin 0.5 mg/dL (0.3-1.2); Total Protein 5.8 g/dL (6.2-8.2)
--- NOTE | 2023-04-16 15:03 | CDI ---
Documentation Clarification Form Date: 04/16/2023 02:53:45 PM From: Mari Sin RN, CCDS Email: [email or web address] Admit Date: 04/11/2023 11:14:00 AM Patient Name: Cindy Barnard Visit Number: [id number] Discharge Date: 04/12/2023 11:31:00 AM ATTENTION: The Clinical Documentation Specialists (CDI) and [facility] Coding Staff appreciate your assistance in clarifying documentation. Please respond to the clarification below the line at the bottom and electronically sign. The CDI & [facility] Coding staff will review the response and follow-up if needed. Please note: Queries are made part of the Legal Health Record. If you have any questions, please contact the author of this message via ITS. Dr. David Sierra Your patient had surgery and a drop in Hgb. Based on this information and the findings below, is there an additional diagnosis that is clinically appropriate for this patient? Patient history/risk factors: Spondylosis, spondylolisthesis, lumbar stenosis, GERD, hypertension, hyperlipidemia, DJD. S/P spinal decompression and fusion. Clinical Indicators: Op note EBL: 650mL 04/09 Hgb/Hct: 11.2/34.1 04/12 Hgb/Hct: 8.7/26.5 Treatment: Ferrous sulfate 325mg po daily 04/10-04/12; LR @75mL/hr 04/09-04/12; monitor labs Is there an additional diagnosis that is clinically appropriate for this patient? [x ] Acute blood loss anemia [ ] No additional diagnosis/Not clinically significant [ ] Unable to determine [ ] Other, please specify MTDD
== END 2023-04-12 11:31 | disposition home health service (06) | DRG 304 ==
LOC: OR 05:45 → 5NMEDONC 15:11 → OR 04-09 13:21 → 5NMEDONC 04-09 13:21 → OBSVTOIN 04-11 11:14
PROVIDERS: ADMIT Orthopaedic Surgery; ATTEND Orthopaedic Surgery
PROC: 0SG1071 Fusion of 2 or more Lumbar Vertebral Joints with Autologous Tissue Substitute, Posterior Approach, Posterior Column, Open Approach (ICD-10-PCS; 2023-04-08)
PROC: 0SG30A0 Fusion of Lumbosacral Joint with Interbody Fusion Device, Anterior Approach, Anterior Column, Open Approach (ICD-10-PCS; 2023-04-08)
PROC: 0SG3071 Fusion of Lumbosacral Joint with Autologous Tissue Substitute, Posterior Approach, Posterior Column, Open Approach (ICD-10-PCS; 2023-04-08)
PROC: 01NB0ZZ Release Lumbar Nerve, Open Approach (ICD-10-PCS; 2023-04-08)
PROC: 01NR0ZZ Release Sacral Nerve, Open Approach (ICD-10-PCS; 2023-04-08)
PROC: 0QH304Z Insertion of Internal Fixation Device into Left Pelvic Bone, Open Approach (ICD-10-PCS; 2023-04-08)
PROC: 0QH204Z Insertion of Internal Fixation Device into Right Pelvic Bone, Open Approach (ICD-10-PCS; 2023-04-08)
PROC: 8E0WXBZ Computer Assisted Procedure of Trunk Region (ICD-10-PCS; 2023-04-08)
PROC: 0ST40ZZ Resection of Lumbosacral Disc, Open Approach (ICD-10-PCS; 2023-04-08)
PROC: 0SG10AJ Fusion of 2 or more Lumbar Vertebral Joints with Interbody Fusion Device, Posterior Approach, Anterior Column, Open Approach (ICD-10-PCS; principal; 2023-04-08 07:30)
DX: M43.16 Spondylolisthesis, lumbar region (principal); D62 Acute posthemorrhagic anemia; I10 Essential (primary) hypertension; E03.9 Hypothyroidism, unspecified; G47.9 Sleep disorder, unspecified; M48.062 Spinal stenosis, lumbar region with neurogenic claudication; M47.26 Other spondylosis with radiculopathy, lumbar region; M51.16 Intervertebral disc disorders with radiculopathy, lumbar region; M47.27 Other spondylosis with radiculopathy, lumbosacral region; M48.07 Spinal stenosis, lumbosacral region; M25.78 Osteophyte, vertebrae; E78.5 Hyperlipidemia, unspecified; R11.2 Nausea with vomiting, unspecified; G89.29 Other chronic pain; Z96.653 Presence of artificial knee joint, bilateral; Z79.890 Hormone replacement therapy; Z79.899 Other long term (current) drug therapy
CPT/HCPCS: 72100; 72131; 80048; 80053; 85025; 86850; 86891; 86900; 86901

== ENCOUNTER → 2023-08-16 | Outpatient (CLI) | payer OTHER ==
--- NOTE | 2023-08-21 09:43 | MM ---
Reason for Exam: Screening (asymptomatic). Last screening mammogram was performed 12 month(s) ago. Patient History: Menarche at age 17. First Full-Term at age 20. Postmenopausal. Risk Values: Geovanna 5 year model risk: 1.0%. NCI Lifetime model risk: 4.7%. Prior Study Comparison: 04/28/2020 Bilateral Screening Mammogram, [facility]. 06/08/2021 Bilateral Screening Mammogram, [facility]. 08/10/2022 Bilateral MG screening mammo w CAD, [facility]. Tissue Density: The breasts are heterogeneously dense, which may obscure small masses. Findings: Analyzed By CAD. There is no suspicious group of microcalcifications or new suspicious mass in either breast. Benign calcifications. Overall Assessment: Benign, BI-RAD 2 Management: Screening Mammogram of both breasts in 1 year. . Patient should continue monthly self-breast exams. A clinical breast exam by your physician is recommended on an annual basis. This exam should not preclude additional follow-up of suspicious palpable abnormalities. Note on Geovanna scores and lifetime risk: 1. A Geovanna score greater than 3% is considered moderate risk. If this is the case, consider specialist referral to assess eligibility for a risk reducing agent. 2. If overall lifetime risk for the development of breast cancer is 20% or higher, the patient may qualify for future screening with alternating mammogram and breast MRI. Electronically signed and approved by: Kota Deutsch M.D. Radiologis
== END | disposition home or self-care (01) ==
LOC: RADMAMWWP 10:39
PROVIDERS: ATTEND Family Medicine
DX: Z12.31 Encounter for screening mammogram for malignant neoplasm of breast (principal); Z78.0 Asymptomatic menopausal state
CPT/HCPCS: 77067